=== PATIENT | female | born 1990 | race Caucasian/White ===

== ENCOUNTER → 2020-12-08 | Outpatient (CLI) | payer OTHER ==
[2020-12-08 16:17] LABS: BASO % 0.5 % (0.0-1.0); EOS % 12.8 % (0.0-3.0); HEMATOCRIT 37.6 % (36.0-47.0); HEMOGLOBIN 11.6 g/dl (12.0-15.5); LYMPH # 2.8 10^3/uL (1.5-5.0); MEAN CORPUSCULAR HEMOGLOBIN 27.1 pg (27.0-33.0); MEAN CORPUSCULAR HGB CONC 30.9 g/dl (32.0-36.5); MEAN CORPUSCULAR VOLUME 87.9 fl (80.0-96.0); MONO # 0.5 10^3/uL (0.0-0.8); MONO % 7.2 % (2.0-8.0); NEUTROPHILS # 3.2 10^3/uL (1.5-8.5); NEUTROPHILS % 42.1 % (36.0-66.0); PLATELET COUNT, AUTOMATED 297 10^3/uL (150-450); RED BLOOD COUNT 4.28 10^6/uL (4.00-5.40); WHITE BLOOD COUNT 7.5 10^3/uL (4.0-10.0)
[2020-12-08 16:38] LABS: ALBUMIN 3.7 GM/DL (3.2-5.2); ALT/SGPT 31 U/L (12-78); BILIRUBIN,TOTAL 0.2 MG/DL (0.2-1.0); BLOOD UREA NITROGEN 18 MG/DL (7-18); CALCIUM LEVEL 9.5 MG/DL (8.5-10.1); CARBON DIOXIDE LEVEL 31 MEQ/L (21-32); CHLORIDE LEVEL 104 MEQ/L (98-107); CREATININE FOR GFR 0.74 MG/DL (0.55-1.30); GLOMERULAR FILTRATION RATE > 60.0 (>60); GLUCOSE, FASTING 77 MG/DL (70-100); POTASSIUM SERUM 4.9 MEQ/L (3.5-5.1); SODIUM LEVEL 139 MEQ/L (136-145); TOTAL PROTEIN 7.7 GM/DL (6.4-8.2)
[2020-12-08 16:47] LABS: APPEARANCE, URINE CLEAR (CLEAR); BACTERIA, URINE AUTO NEGATIVE (NEGATIVE); BILIRUBIN, URINE AUTO NEGATIVE (NEGATIVE); BLOOD, URINE BLOOD NEGATIVE (NEGATIVE); COLOR, URINE YELLOW (YELLOW); GLUCOSE, URINE (UA) AUTO NEGATIVE (NEGATIVE); KETONE, URINE AUTO NEGATIVE (NEGATIVE); LEUKOCYTE ESTERASE, URINE AUTO NEGATIVE (NEGATIVE); NITRITE, URINE AUTO NEGATIVE (NEGATIVE); PROTEIN, URINE AUTO NEGATIVE (NEGATIVE); RBC, URINE AUTO 0 /HPF (0-3); SPECIFIC GRAVITY URINE AUTO 1.018 (1.002-1.035); SQUAMOUS EPITHELIAL CELL UR AU 2 /HPF (0-6); UROBILINOGEN, URINE AUTO 0.2 mg/dL (0.0-2.0); WBC, URINE AUTO 0 /HPF (0-3)
[2020-12-08 16:59] LABS: HEPATITIS B SURFACE ANTIGEN NEGATIVE (NEGATIVE)
[2020-12-08 17:26] LABS: HEPATITIS B CORE ANTIBODY IGM NEGATIVE (NEGATIVE)
[2020-12-08 17:28] LABS: HEPATITIS A ANTIBODY IGM NEGATIVE (NEGATIVE)
[2020-12-08 17:30] LABS: HEPATITIS C VIRUS ABY INDEX > 11.0 INDEX (<0.8)
== END ==
LOC: M PLALAB 13:12
PROVIDERS: ATTEND Physician Assistant Medical
DX: Z02.2 Encounter for examination for admission to residential institution (principal)

== ENCOUNTER 2020-12-14 13:59 | Emergency (ER) | payer OTHER ==
[~2020-12-14] VITALS: Ht 154.9 cm; Wt 58.5 kg
[2020-12-14] MEDS ORDERED: GABA-1171 (14:19)
[2020-12-14] MEDS ORDERED: DOXY100C3 (14:19)
[2020-12-14] MEDS ORDERED: CYCL-707 (14:19)
[2020-12-14] MEDS ORDERED: MELA10CA6 PO (14:19)
[2020-12-14] MEDS ORDERED: LIDOCAINE 1% MDV 20ML VIAL SC ONE (18:45)
[2020-12-14] MEDS ORDERED: BACT800T5 PO (19:14)
[2020-12-14] MEDS ORDERED: KETO10TAB PO (19:29)
[2020-12-14] MEDS ORDERED: KETOROLAC TROMETHAMINE 10 MG TAB PO ONE (19:30)
[2020-12-14 19:48] VITALS: BP 114/80
[2020-12-15] MEDS ORDERED: PRAZ2CAP (15:59)
[2020-12-15] MEDS ORDERED: BUPR-69 (15:59)
[2020-12-15] MEDS ORDERED: GABA-1171 PO (16:00)
== END 2020-12-14 19:51 | disposition home or self-care (01) ==
LOC: M ED 13:59
DX: L02.414 Cutaneous abscess of left upper limb (principal); L03.114 Cellulitis of left upper limb; A49.02 Methicillin resistant Staphylococcus aureus infection, unspecified site; K21.9 Gastro-esophageal reflux disease without esophagitis; J45.909 Unspecified asthma, uncomplicated; F41.9 Anxiety disorder, unspecified; Z88.0 Allergy status to penicillin; Z79.899 Other long term (current) drug therapy

== ENCOUNTER 2020-12-15 15:30 | Emergency (ER) | payer OTHER ==
[~2020-12-15] VITALS: Ht 154.9 cm; Wt 58.4 kg
[~2020-12-15 15:30] MED LIST: BACT800T5 PO; CYCL-707; DOXY100C3; GABA-1171; KETO10TAB PO; MELA10CA6 PO
[2020-12-15 15:31] VITALS: BP 126/76
[2020-12-15] MEDS ORDERED: BUPR-69 (15:59)
[2020-12-15] MEDS ORDERED: PRAZ2CAP (15:59)
[2020-12-15] MEDS ORDERED: GABA-1171 PO (16:00)
== END 2020-12-15 19:36 | disposition left against medical advice (07) ==
LOC: M ED 15:30
DX: Z53.21 Procedure and treatment not carried out due to patient leaving prior to being seen by health care provider (principal)

== ENCOUNTER → 2020-12-16 | Outpatient (CLI) | payer OTHER ==
[~2020-12-16] MED LIST changes: +BUPR-69; +GABA-1171 PO; +PRAZ2CAP
[2020-12-16 12:51] LABS: HEPATITIS B SURFACE ANTIBODY NEGATIVE (POSITIVE); HEPATITIS B SURFACE ANTIGEN NEGATIVE (NEGATIVE)
== END ==
LOC: M LAB 09:38
PROVIDERS: ATTEND Physician Assistant Medical
DX: B18.2 Chronic viral hepatitis C (principal)

== ENCOUNTER → 2020-12-23 | Outpatient (CLI) | payer OTHER ==
--- NOTE | 2020-12-23 19:18 | ECGEPIP ---
[facility] Test Date: 2020-12-23 Pat Name: GAVIN KENDALL Department: Room: - Gender: Female Rn Clinical Coordinator: BLAINE : 1990 Requested By: Neto Crump Order Number: [id number] Reading MD: Rogers Ocasio Measurements Intervals [place] Rate: 88 P: 56 MO: 118 QRS: 76 QRSD: 84 T: 81 QT: 356 QTc: 430 Interpretive Statements Normal sinus rhythm Comparison tracing not on file Electronically Signed on 12-23-2020 19:18:47 EDT by Rogers Ocasio
== END ==
LOC: M EKG 11:19
PROVIDERS: ATTEND Family Medicine
DX: F11.20 Opioid dependence, uncomplicated (principal)

== ENCOUNTER 2020-12-28 14:08 | Emergency (ER) | payer OTHER ==
[~2020-12-28] VITALS: Ht 154.9 cm; Wt 59.1 kg
[2020-12-28] MEDS ORDERED: diphenhydrAMINE 50MG/ML VIAL (J1200) IV STA (14:18)
[2020-12-28] MEDS ORDERED: COMBIVENT RESPIMAT 100-20MCG INHALER 4GM INH STA (14:18)
[2020-12-28] MEDS ORDERED: methylPREDNISolone 125MG 2ML VIAL IV ONE (14:20)
[2020-12-28] MEDS ORDERED: KETOROLAC 30 MG/ML 1ML VIAL IV ONE (14:20)
[2020-12-28] MEDS ORDERED: CYCL-707 PO (14:35)
--- NOTE | 2020-12-28 14:48 | REP ---
INDICATION: SOB COMPARISON: None. TECHNIQUE: Portable AP view of the chest FINDINGS: The mediastinum and cardiac silhouette are stable and within normal limits for portable technique. Lung hermosillo demonstrate perihilar and lower lobe airspace disease concerning for COVID-19 pulmonary disease. No effusion. No pneumothorax. Skeletal structures intact. IMPRESSION: Subtle perihilar and lower lobe opacities concerning for COVID-19 pulmonary disease. <Electronically signed by Aubrey Arechiga > 12/28/20 [id number]
--- OUTSIDE RECORDS SUMMARY | 2020-12-28 14:59 | CCD | Continuity of Care Document ---
Author Author Marzena MOSQUEDA Organization Unknown Address [address] [facility] [address] [place] [address] Phone [phone] Care Team Providers Care Medical Records Clerk Name Role Phone GENEVIEVE MOSQUEDA AUTM [phone] Social History Type Date Description Comments Sex Unknown Results Test Acquired Date Facility Test Result H/L Range Note Laboratory test finding 12/16/2020 [facility] [address] [place] [address] [phone] Hepatitis B Surface Antigen NEGATIVE Normal Nega tive Hepatitis B Surface Antibody NEGATIVE Normal Positive CBC With Differential 12/08/2020 [facility] [address] [place] [address] [phone] White Blood Count 7.5 10 Normal 4.0-10.0 Red Blood Count 4.28 10 Normal 4.00-5.40 Hemoglobin 11.6 g/dL Low 12.0-15.5 Hematocrit 37.6 % Normal 36.0-47.0 Mean Corpuscular Volume 87.9 fl Normal 80.0-96.0 Mean Corpuscular Hemoglobin 27.1 pg Normal 27.0-33.0 Mean Corpuscular HGB Conc 30.9 g/dL Low 32.0-36.5 Red Cell Distribution Width 16.3 % High 11.5-14.5 Platelet Count, Automated 297 10 Normal 150-450 Neutrophils % 42.1 % Normal 36.0-66.0 Lymph % 37.0 % Normal 24.0-44.0 [place] % 7.2 % Normal 2.0-8.0 Eos % 12.8 % High 0.0-3.0 Baso % 0.5 % Normal 0.0-1.0 Immature Granulocyte % 0.4 % Normal 0-3.0 Nucleated Red Blood Cell % 0.0 % Normal 0-0 Neutrophils # 3.2 10 Normal 1.5-8.5 Lymph # 2.8 10 Normal 1.5-5.0 [place] # 0.5 10 Normal 0.0-0.8 Eos # 1.0 10 High 0.0-0.5 Baso # 0.0 10 Normal 0.0-0.2 Ua Routine 12/08/[address] [id number] [phone] Appearance, Urine CLEAR Normal Clear Color, Urine YELLOW Normal Yellow PH,Urine 6.0 units Normal 5.0-9.0 Specific [place] Urine Auto 1.018 Normal 1.002-1.035 Protein, Urine Auto NEGATIVE mg/dL Normal Negative Glucose, Urine (Ua) Auto NEGATIVE mg/dL Normal Negative Ketone, Urine Auto NEGATIVE mg/dL Normal Negative Urobilinogen, Urine Auto 0.2 mg/dL Normal 0.0-2.0 Bilirubin, Urine Auto NEGATIVE Normal Negative Nitrite, Urine Auto NEGATIVE Normal Negative Leukocyte Esterase, Urine Auto NEGATIVE Normal Negative Blood, Urine Blood NEGATIVE Normal Negative WBC, Urine Auto 0 /HPF Normal 0-3 RBC, Urine Auto 0 /HPF Normal 0-3 Bacteria, Urine Auto NEGATIVE Normal Negative Squamous Epithelial Cell Ur AU 2 /HPF Normal 0-6 Hyaline Cast, Urine Auto 0 /LPF Normal 0-1 Comprehensive Metabolic Profil 12/08/[address] [id number] [phone] Glucose, Fasting 77 mg/dL Normal 70-100 Blood Urea Nitrogen 18 mg/dL Normal 7-18 Creatinine For GFR 0.74 mg/dL Normal 0.55-1.30 Glomerular Filtration Rate > 60.0 Normal >60 1 Sodium Level 139 mEq/L Normal 136-145 Potassium Serum 4.9 mEq/L Normal 3.5-5.1 Chloride Level 104 mEq/L Normal 98-107 Carbon Dioxide Level 31 mEq/L Normal 21-32 Anion Gap 4 mEq/L Low 8-16 Calcium Level 9.5 mg/dL Normal 8.5-10.1 Ast/Sgot 16 U/L Normal 7-37 Alt/SGPT 31 U/L Normal 12-78 Alkaline Phosphatase 80 U/L Normal 45-117 Bilirubin,Total 0.2 mg/dL Normal 0.2-1.0 Total Protein 7.7 GM/DL Normal 6.4-8.2 Albumin 3.7 GM/DL Normal 3.2-5.2 Albumin/Globulin Ratio 0.9 Low 1.2-2.2 Hepatitis Profile 12/08/2020 [facility] [address] [place] [address] [phone] Hepatitis C Virus Dora Index > 11.0 INDEX High <0 .8 2 Hepatitis B Surface Antigen NEGATIVE Normal Negative Hepatitis B Core Antibody Igm NEGATIVE Normal Negative Hepatitis A Antibody Igm NEGATIVE Normal Negative Laboratory test finding 12/08/2020 [facility] [address] [place] [address] [phone] HCV Rna Sophy Qualitative Negative Normal Negative 3 1 Units are mL/min/1.73 m2 Chronic Kidney Disease Staging per NKF: Stage I & II GFR >=60 Normal to Mildly Decreased Stage III GFR 30-59 Moderately Decreased Stage IV GFR 15-29 Severely Decreased Stage V GFR <15 Very Little GFR Left ESRD GFR <15 on [employer] [place] 2 This screening test for Hepa titis C Virus was above the 1.0 cutoff index value and will be sent to reference lab [facility], [address] [place] [address] [place] [address] for Hep C RNA SOPHY testing to confirm or exclude active Hepatitis C Virus infection. Screening test Positive samples with high index values (>11.0) usually (95%) confirm Positive, but <5 of every 100 samples with this result might be a false positive and Hep C RNA SOPHY testing will aid in patient management. 3 Negative: HCV RNA Not Detect ed Performed at: [address] [id number] [address] [place]: Pat Paredes MD, Phone: [phone] Procedures Date Code Description Status 12/17/2020 24906 Office/Outpatient Established Lo w MDM 20-29 Min Completed 12/13/2020 00968 Office/Outpatient Established Lo w MDM 20-29 Min Completed 12/03/2020 90418 Periodic Preventive Med 18-39 Yr s Completed Encounters Type Date Location Provider Dx Diagnosis Office Visit 12/17/2020 10:00a [facility] SAIRA Wells A49.02 Methicillin resis staph infe ction, unsp site J30.9 Allergic rhinitis, unspecifi ed M54.2 Cervicalgia Office Visit 12/13/2020 10:15a [facility] SAIRA Wells L03.211 Cellulitis of face J45.909 Unspecified asthma, uncompli cated M54.2 Cervicalgia Office Visit 12/03/2020 12:00p [facility] SAIRA Wells Z02.2 Encounter for exam for admis elicia to [facility] Assessments Date Code Description Provider 12/17/2020 A49.02 Methicillin resistan t Staphylococcus aureus infection, unspecified site SAIRA Santana 12/17/2020 J30.9 Allergic rhinitis, unspecified F SAIRA Ward 12/17/2020 M54.2 Cervicalgia SAIRA [place] 12/13/2020 L03.211 Cellulitis of face SAIRA Schaefer 12/13/2020 J45.909 Unspecified asthma, uncomplicate d SAIRA Santana 12/13/2020 M54.2 Cervicalgia [place]IRA [place] 12/03/2020 Z02.2 Encounter for examin ation for admission to [facility] SAIRA Santana Referrals Refer to Reason for Referral Status Appt Date [facility] PATIENT WITH C.O CHRONI C NECK PAIN. PLEASE EVAL AND TREAT. Sent [address] [address] [phone]
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
--- OUTSIDE RECORDS SUMMARY | 2020-12-28 15:00 | CCD | Continuity of Care Document ---
Author Author Marzena MOSQUEDA Organization Unknown Address [address] [facility] [address] [place] [address] Phone [phone] Care Team Providers Care Delivery Specialist Name Role Phone GENEVIEVE MOSQUEDA AUTM Social History Type Date Description Comments Sex Unknown Results Test Acquired Date Facility Test Result H/L Range Note Laboratory test finding 12/16/2020 [facility] [address] [place] [address] [phone] Hepatitis B Surface Antigen NEGATIVE Normal Nega tive Hepatitis B Surface Antibody NEGATIVE Normal Positive CBC With Differential 12/08/2020 [facility] [address] [place] [address] [phone] White Blood Count 7.5 10 Normal 4.0-10.0 [...] 36.0-66.0 Lymph % 37.0 % Normal 24.0-44.0 [place] % 7.2 % Normal 2.0-8.0 Eos % 12.8 % High 0.0-3.0 Baso % 0.5 % Normal 0.0-1.0 Immature Granulocyte % 0.4 % Normal 0-3.0 Nucleated Red Blood Cell % 0.0 % Normal 0-0 Neutrophils # 3.2 10 Normal 1.5-8.5 Lymph # 2.8 10 Normal 1.5-5.0 [place] # 0.5 10 Normal 0.0-0.8 Eos # 1.0 10 High 0.0-0.5 Baso # 0.0 10 Normal 0.0-0.2 Ua Routine 12/08/[address] [id number] [phone] Appearance, Urine CLEAR Normal Clear Color, Urine YELLOW Normal Yellow PH,Urine 6.0 units Normal 5.0-9.0 Specific [place] Urine Auto 1.018 Normal 1.002-1.035 Protein, Urine [...] /LPF Normal 0-1 Comprehensive Metabolic Profil 12/08/[address] [id number] [phone] Glucose, Fasting 77 mg/dL Normal 70-100 Blood [...] Ratio 0.9 Low 1.2-2.2 Hepatitis Profile 12/08/[address] [address] [phone] Hepatitis C Virus Dora Index > 11.0 INDEX High <0 .8 2 Hepatitis B Surface Antigen NEGATIVE Normal Negative Hepatitis B Core Antibody Igm NEGATIVE Normal Negative Hepatitis A Antibody Igm NEGATIVE Normal Negative Laboratory test finding 12/08/2020 [facility] [address] [place] [address] [phone] HCV Rna Sophy Qualitative Negative Normal Negative 3 1 Units are mL/min/1.73 m2 Chronic Kidney Disease Staging per NKF: Stage I & II GFR >=60 Normal to Mildly Decreased Stage III GFR 30-59 Moderately Decreased Stage IV GFR 15-29 Severely Decreased Stage V GFR <15 Very Little GFR Left ESRD GFR <15 on PERSONAL FIN[employer] INSTRUCTOR 2 This screening test for Hepa titis C Virus was above the 1.0 cutoff index value and will be sent to reference lab [facility], [address] [place] [address] [place] [address] for Hep C RNA SOPHY testing to confirm or exclude active Hepatitis C Virus infection. Screening test Positive samples with high index values (>11.0) usually (95%) confirm Positive, but <5 of every 100 samples with this result might be a false positive and Hep C RNA SOPHY testing will aid in patient management. 3 Negative: HCV RNA Not Detect ed Performed at: [address] [id number] [employer]er: Pat Paredes MD, Phone: [phone] Procedures Date Code Description Status 12/13/2020 83376 Office/Outpatient Established Lo w MDM 20-29 Min Completed 12/03/2020 89653 Periodic Preventive Med 18-39 Yr s Completed Encounters Type Date Location Provider Dx Diagnosis Office Visit 12/13/2020 10:15a [facility] SAIRA Wells L03.211 Cellulitis of face J45.909 Unspecified asthma, uncompli cated M54.2 Cervicalgia Office Visit 12/03/2020 12:00p [facility] SAIRA Wells Z02.2 Encounter for exam for admis elicia to [facility] Assessments Date Code Description Provider 12/13/2020 L03.211 Cellulitis of face SAIRA Schaefer 12/13/2020 J45.909 Unspecified asthma, uncomplicate d SAIRA Santana 12/13/2020 M54.2 Cervicalgia [place]IRA [place] 12/03/2020 Z02.2 Encounter for examin ation for admission to [facility] SAIRA Santana Referrals Refer to Reason for Referral Status Appt Date [facility] PATIENT WITH C.O CHRONI C NECK PAIN. PLEASE EVAL AND TREAT. Sent [address] [address] [phone]
--- OUTSIDE RECORDS SUMMARY | 2020-12-28 15:00 | CCD | Continuity of Care Document ---
Author Author Marzena MOSQUEDA Organization Unknown Address [id number] [place] [address] Phone [phone] Care Team Providers Care Consultants Intern Name Role Phone GENEVIEVE MOSQUEDA AUTM [phone] Social History Type Date Description Comments Sex Unknown Procedures Date Code Description Status 12/03/2020 63778 Periodic Preventive Med 18-39 Yr s Completed Encounters Type Date Location Provider Dx Diagnosis Office Visit 12/03/2020 12:00p [facility] SAIRA Wells Z02.2 Encounter for exam for admis elicia to residential institution Assessments Date Code Description Provider 12/03/2020 Z02.2 Encounter for examin ation for admission to residential institution SAIRA Santana
--- OUTSIDE RECORDS SUMMARY | 2020-12-28 15:02 | CCD ---
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 DISOR LEONIE Diagnosis 11/19/2019 01:54:00 PM EDT [facility] T78.40XA Allergy, unspecified, initial encounter ALLERGY, UNSPECIFIED, INITIAL ENCOUNTER Diagnosis 11/19/2019 01:54:00 PM EDT [facility] R21 Rash and other nonspecific skin eruption RASH AND OTHER NONSPECIFIC SKIN ERUPTION Diagnosis 11/19/2019 01:54:00 PM EDT [facility] Surgeries/Procedures Procedure Description Date Indications Data Source(s) OFFICE OUTPATIENT VISIT 15 MINUTES 12/17/2020 12:00:00 AM EDT [facility] (Thierry Connell MD) OFFICE OUTPATIENT VISIT 15 MINUTES 12/13/2020 12:00:00 AM EDT [facility] (Thierry Connell MD) PERIODIC PREVENTIVE MED EST PATIENT 18-39 YRS 12/04/19 12:00:00 AM EDT [facility] (Thierry Connell MD) XR CHEST FRONTAL ONLY 97199 <td>XR CHEST FRONTAL ONLY 12917</td><td>STAT</td><td>08/17/2020 8:12 AM EDT</td><td></td><td> </td> 08/17/2020 08:12:00 AM [facility] RESPIRATORY PATHOGEN PANEL <td>RESPIRATORY PATHOGEN PANEL</td><td>Routine</td><td>08/17/2020 8:02 AM EDT</td><td></td><td> </td> 08/17/2020 08:02:00 AM [facility] COVID-19 PCR <td>COVID-19 PCR</td><td>Rou thad</td><td>08/17/2020 8:02 AM EDT</td><td></td><td> </td> 08/17/2020 08:02:00 AM [facility] EKG 12-LEAD - CMAXX REPORT <td>EKG 12-LEAD - CMAXX REPORT</td><td></td><td>08/17/2020 8:02 AM EDT</td><td></td><td></td> 08/17/2020 08:02:00 AM [facility] EKG 12-LEAD - CMAXX REPORT <td>EKG 12-LEAD - CMAXX REPORT</td><td></td><td>08/17/2020 8:02 AM EDT</td><td></td><td></td> 08/17/2020 08:02:00 AM [facility] BLOOD COUNT COMPLETE AUTO&AUTO DIFRNTL WBC COUNT <td>C BC AND DIFFERENTIAL</td><td>Routine</td><td>08/17/2020 8:02 AM EDT</td><td></td><td> </td> 08/17/2020 08:02:00 AM [facility] LIPASE <td>LIPASE LEVEL</td><td>STA T</td><td>08/17/2020 8:02 AM EDT</td><td></td><td> </td> 08/17/2020 08:02:00 AM [facility] HEPATIC FUNCTION PANEL <td>HEPATIC FUNCTION PANEL A</td><td>STAT</td><td>08/17/2020 8:02 AM EDT</td><td></td><td> </td> 08/17/2020 08:02:00 AM [facility] BASIC METABOLIC PANEL CALCIUM TOTAL <td>BASIC METABOLI C PANEL</td><td>STAT</td><td>08/17/2020 8:02 AM EDT</td><td></td><td> </td> 08/17/2020 08:02:00 AM [facility] EKG 12-LEAD <td>EKG 12-LEAD</td><td>STAT </td><td>08/17/2020 8:02 AM EDT</td><td></td><td> </td> 08/17/2020 08:02:00 AM [facility] POCT ISTAT [facility]CG <td>POCT ISTAT [facility]CG</td><td> Routine</td><td>08/17/2020 7:59 AM EDT</td><td></td><td> </td> 08/17/2020 07:59:00 AM [facility] Results ID Date Data Source [id number] 12/16/2020 10:53:00 AM EDT [facility] (Thierry Connell MD) Name Value Range Interpretation Code Description Data Daniela rce(s) Supporting Document(s) Hepatitis B virus surface Ag [Presence] in Serum or Pl asma by Immunoassay Laboratory test result Normal (applies to non-numeric results) [facility] (Thierry Connell MD) Hepatitis B virus surface Ab [Presence] in Serum by Im munoassay Laboratory test result Normal (applies to non-numeric results) [facility] (Thierry Connell MD) ID Date Data Source [id number] 12/08/2020 01:24:00 PM EDT [facility] (Thierry Connell MD) Name Value Range Interpretation Code Description Data Daniela rce(s) Supporting Document(s) Hepatitis C virus RNA [Units/volume] (vi ral load) in Serum or Plasma by Probe with amplification Laboratory test result Normal (applies t o non-numeric results) [facility] (Thierry Connell MD) Negative: HCV RNA Not Detected Performed at: [address] [id number] Equipment Oiler: Pat Paredes MD, Phone: [phone] ID Date Data Source [id number] 12/08/2020 01:24:00 PM EDT [facility] (Thierry Connell MD) Name Value Range Interpretation Code Description Data Daniela rce(s) Supporting Document(s) Laboratory test finding (navigational concept) Laboratory test r esult Above high normal [facility] (Thierry Connell MD) <content>This screening test for Hepatit is C Virus was above the 1.0</content>
<content>cutoff index value and will be sent to reference lab</content>
<content>Laboratory [facility], [address] [place],</content>
<content>[place] [address] for Hep C RNA JASIEL testing to confirm or exclude</content>
<content>active Hepatitis C Virus infection. Screening test Positive</content>
<content>samples with high index values (>11.0) usually (95%) confirm</content>
<content>Positive, but <5 of every 100 samples with this result might</content>
<content>be a false positive and Hep C RNA JASIEL testing will aid in</content>
<content>patient management.</content>
<content></content> Laboratory test finding (navigational concept) Laboratory test r esult Normal (applies to non-numeric results) [facility] (Thierry Connell MD) Laboratory test finding (navigational concept) Laboratory test r esult Normal (applies to non-numeric results) [facility] (Thierry Connell MD) Laboratory test finding (navigational concept) Laboratory test r esult Normal (applies to non-numeric results) [facility] (Thierry Connell MD) ID Date Data Source [id number] 12/08/2020 01:24:00 PM EDT [facility] (Thierry Connell MD) Name Value Range Interpretation Code Description Data Daniela rce(s) Supporting Document(s) Laboratory test finding (navigational concept) 77 mg/dL 7 0-100 Normal (applies to non-numeric results) [facility] (Thierry Connell MD) Laboratory test finding (navigational concept) 0.74 mg/dL 0 .55-1.30 Normal (applies to non-numeric results) [facility] (Thierry Connell MD) Laboratory test finding (navigational concept) 18 mg/dL 7 -18 Normal (applies to non-numeric results) [facility] (Thierry Connell MD) Laboratory test finding (navigational concept) Laboratory test r esult Normal (applies to non-numeric results) [facility] (Thierry Connell MD) <content>Units are mL/min/1.73 m2</content>
<content></content>
<content>Chronic Kidney Disease Staging per NKF:</content>
<content></content>
<content>Stage I & II GFR >=60 Normal to Mildly Decreased</content>
<content>Stage III GFR 30- 59 Moderately Decreased</content>
<content>Stage IV GFR 15-29 Severely Decreased</content>
<content>Stage V GFR <15 Very Little GFR Left</content>
<content>ESRD GFR <15 on FEEDER OPERATOR [employer]IC</content>
<content></content> Laboratory test finding (navigational concept) 4.9 meq/L 3 .5-5.1 Normal (applies to non-numeric results) [facility] (Thierry Connell MD) Laboratory test finding (navigational concept) 139 meq/L 1 36-145 Normal (applies to non-numeric results) [facility] (Thierry Connell MD) Laboratory test finding (navigational concept) 104 meq/L 9 8-107 Normal (applies to non-numeric results) [facility] (Thierry Connell MD) Laboratory test finding (navigational concept) 31 meq/L 2 1-32 Normal (applies to non-numeric results) [facility] (Thierry Connell MD) Laboratory test finding (navigational concept) 4 meq/L 8-16 Below low normal [facility] (Thierry Connell MD) Laboratory test finding (navigational concept) 9.5 mg/dL 8 .5-10.1 Normal (applies to non-numeric results) [facility] (Thierry Connell MD) Laboratory test finding (navigational concept) 31 U/L 1 2-78 Normal (applies to non-numeric results) [facility] (Thierry Connell MD) Laboratory test finding (navigational concept) 16 U/L 7 -37 Normal (applies to non-numeric results) [facility] (Thierry Connell MD) Laboratory test finding (navigational concept) 0.2 mg/dL 0 .2-1.0 Normal (applies to non-numeric results) [facility] (Thierry Connell MD) Laboratory test finding (navigational concept) 7.7 GM/DL 6 .4-8.2 Normal (applies to non-numeric results) [facility] (Thierry Connell MD) Laboratory test finding (navigational concept) 80 U/L 4 5-117 Normal (applies to non-numeric results) [facility] (Thierry Connell MD) Laboratory test finding (navigational concept) 0.9 1.2-2.2 Below low normal [facility] (Thierry Connell MD) Laboratory test finding (navigational concept) 3.7 GM/DL 3 .2-5.2 Normal (applies to non-numeric results) [facility] (Thierry Connell MD) ID Date Data Source [id number] 12/08/2020 01:24:00 PM EDT [facility] (Thierry Connell MD) Name Value Range Interpretation Code Description Data Daniela rce(s) Supporting Document(s) Laboratory test finding (navigational concept) 6.0 units 5 .0-9.0 Normal (applies to non-numeric results) [facility] (Thierry Connell MD) Laboratory test finding (navigational concept) Laboratory test r esult Normal (applies to non-numeric results) [facility] (Thierry Connell MD) Laboratory test finding (navigational concept) Laboratory test r esult Normal (applies to non-numeric results) [facility] (Thierry Connell MD) Laboratory test finding (navigational concept) 1.018 1 .002-1.035 Normal (applies to non-numeric results) [facility] (Thierry Connell MD) Laboratory test finding (navigational concept) Laboratory test r esult Normal (applies to non-numeric results) [facility] (Thierry Connell MD) Laboratory test finding (navigational concept) Laboratory test r esult Normal (applies to non-numeric results) [facility] (Thierry Connell MD) Laboratory test finding (navigational concept) Laboratory test r esult Normal (applies to non-numeric results) [facility] (Thierry Connell MD) Laboratory test finding (navigational concept) 0.2 mg/dL 0 .0-2.0 Normal (applies to non-numeric results) [facility] (Thierry Connell MD) Laboratory test finding (navigational concept) Laboratory test r esult Normal (applies to non-numeric results) [facility] (Thierry Connell MD) Laboratory test finding (navigational concept) Laboratory test r esult Normal (applies to non-numeric results) [facility] (Thierry Connell MD) Laboratory test finding (navigational concept) Laboratory test r esult Normal (applies to non-numeric results) [facility] (Thierry Connell MD) Laboratory test finding (navigational concept) Laboratory test r esult Normal (applies to non-numeric results) [facility] (Thierry Connell MD) Laboratory test finding (navigational concept) 0 /HPF 0 -3 Normal (applies to non-numeric results) [facility] (Thierry Connell MD) Laboratory test finding (navigational concept) 0 /HPF 0 -3 Normal (applies to non-numeric results) [facility] (Thierry Connell MD) Laboratory test finding (navigational concept) Laboratory test r esult Normal (applies to non-numeric results) [facility] (Thierry Connell MD) Laboratory test finding (navigational concept) 2 /HPF 0 -6 Normal (applies to non-numeric results) [facility] (Thierry Connell MD) Laboratory test finding (navigational concept) 0 /LPF 0 -1 Normal (applies to non-numeric results) [facility] (Thierry Connell MD) ID Date Data Source [id number] 12/08/2020 01:24:00 PM EDT [facility] (Thierry Connell MD) Name Value Range Interpretation Code Description Data Daniela rce(s) Supporting Document(s) Laboratory test finding (navigational concept) 7.5 10 4 .0-10.0 Normal (applies to non-numeric results) [facility] (Thierry Connell MD) Laboratory test finding (navigational concept) 4.28 10 4 .00-5.40 Normal (applies to non-numeric results) [facility] (Thierry Connell MD) Laboratory test finding (navigational concept) 11.6 g/dL 1 2.0-15.5 Below low normal [facility] (Thierry Connell MD) Laboratory test finding (navigational concept) 37.6 % 3 6.0-47.0 Normal (applies to non-numeric results) [facility] (Thierry Connell MD) Laboratory test finding (navigational concept) 87.9 fl 8 0.0-96.0 Normal (applies to non-numeric results) [facility] (Thierry Connell MD) Laboratory test finding (navigational concept) 16.3 % 1 1.5-14.5 Above high normal [facility] (Thierry Connell MD) Laboratory test finding (navigational concept) 30.9 g/dL 3 2.0-36.5 Below low normal [facility] (Thierry Connell MD) Laboratory test finding (navigational concept) 27.1 pg 2 7.0-33.0 Normal (applies to non-numeric results) [facility] (Thierry oCnnell MD) Laboratory test finding (navigational concept) 37.0 % 2 4.0-44.0 Normal (applies to non-numeric results) [facility] (Thierry Connell MD) Laboratory test finding (navigational concept) 297 10 1 50-450 Normal (applies to non-numeric results) [facility] (Thierry Connell MD) Laboratory test finding (navigational concept) 42.1 % 3 6.0-66.0 Normal (applies to non-numeric results) [facility] (Thierry Connell MD) Laboratory test finding (navigational concept) 7.2 % 2 .0-8.0 Normal (applies to non-numeric results) [facility] (Thierry Connell MD) Laboratory test finding (navigational concept) 12.8 % 0.0-3.0 Above high normal [facility] (Thierry Connell MD) Laboratory test finding (navigational concept) 0.5 % 0 .0-1.0 Normal (applies to non-numeric results) [facility] (Thierry Connell MD) Laboratory test finding (navigational concept) 3.2 10 1 .5-8.5 Normal (applies to non-numeric results) [facility] (Thierry Connell MD) Laboratory test finding (navigational concept) 0.4 % 0 -3.0 Normal (applies to non-numeric results) [facility] (Thierry Connell MD) Laboratory test finding (navigational concept) 0.0 % 0 -0 Normal (applies to non- numeric results) [facility] (Thierry Connell MD) Laboratory test finding (navigational concept) 0.5 10 0 .0-0.8 Normal (applies to non-numeric results) [facility] (Thierry Connell MD) Laboratory test finding (navigational concept) 1.0 10 0.0-0.5 Above high normal [facility] (Thierry Connell MD) Laboratory test finding (navigational concept) 2.8 10 1 .5-5.0 Normal (applies to non-numeric results) [facility] (Thierry Connell MD) Laboratory test finding (navigational concept) 0.0 10 0 .0-0.2 Normal (applies to non-numeric results) [facility] (Thierry Connell MD) ID Date Data Source [id number] 11/10/2020 02:08:00 PM EDT [facility] PAGE: [address] [place] [address] GAVIN Samuel ESOINCSL4869 [place] [address] [facility] NUM: [id number] : 1990 Med Reconciliation Patient: GAVIN KENDALL Medication Reconciliation Report HealthVisitID: [id number] [place] [address] [phone], [facility]Registrabay[facility] Date/Time: 11/10/2020 14:08 Weight: 47.1 kgHeight/Length: 62 in.BMI: 19.0 ALLERGIES:Banana, Latex, [place], Penicillins The patient's Home Medications are listed below: Unable to obtain.The source(s) of the original Home Medication information: Not obtained.The following Me dications were given to the patient in the Emergency Department:Haloperidol [IM] IM 5 mg, administered: 15:24 1Lorazepam [IM] IM 2 mg, administered: 15:24 1DiphenHydramine [IM] IM 50 mg, administered: 15:24 11/10/2020The following Medications were prescribed to the patient: None. Name Value Range Interpretation Code Description Data Daniela rce(s) Supporting Document(s) ID Date Data Source [id number] 11/10/2020 02:08:00 PM EDT [facility] PAGE: [address] [place] [address] GAVIN KENDALL[address] [facility] [address] NUM: [id number] : 1990 Physician Discharge Report Clinical [facility] - [facility] [address] [place] [address] Patient: GAVIN KENDALL : Jorge : 1990 Age: 30yArrival: 11/10/2020 14:08 Departure: 11/12/2020 08:35 Disposition: Discharge Weight:47.1 kg (E). Height/Length:62 inches (E). BMI:19 Arrived- By ambulance. Historian- patient and EMS personnel. History limited by altered mental status. HISTORY OF PRESENT ILLNESSChief Complaint: BIZARRE BEHAVIOR. Symptoms started today. Duration of substance abuse- unknown. Substances abused: Amphetamines and heroin. The patient has been agitated. patient with uncontrollable movements of entire body writhing around. The symptoms are described as moderate. No injuries noted. Similar sympt oms previously. None. REVIEW OF SYSTEMSUnobtainable due to patient's altered mental status and poor comprehension. PAST HISTORYSee nurses notes. Allergies:Banana.(rash)Latex.(rash)[place].(rash)Penicillins. SOCIAL HISTORY PAGE: [address] [place] [address] GAVIN HERNA[address]ZER[address] [facility] [address] REC NUM: [id number] : 1990 Drug use. ADDITIONAL NOTESThe nursing notes have been reviewed. PHYSICAL EXAMAppearance: Alert. No acute distress. Head: Head atraumatic. Eyes: Pupils equal, round and reactive to light. ENT: Normal ENT inspection. Airway intact. Neck: Normal inspection. CVS: Normal heart rate and rhythm. Heart sounds normal. Pulses normal. Respiratory: No respiratory distress. Painless inspiration. Breath sounds normal. Abdomen: Soft and nontender. No organomegaly. Back: Normal inspection. Skin: Skin warm and dry. Normal skin color. No rash. Normal skin turgor. Extremities: Extremities exhibit normal ROM. No lower extremity edema. Neuro: Alert. Altered mental status. Cranial nerves normal (as tested). LABS, X-RAYS, AND EKGLaboratory Tests: EGFR (CALCULATED): (MASOUD: 11/10/2020 16:45)( MsgRcvd 11/10/2020 17:13) Final results Test Result Flag Units (Reference)ESTIMATED GFR (CALCULATED) EGFR 105 >59 mL/min/1.73m2 EGFR, -BERMUDIAN 121 >59 mL/min/1.74p9Mfsh: Persistent reduction for 3 months or more in an eGFR <60 mL/min/1.73m2 defines CKD. Patients with eGFR values >=60 mL/min/1.73m2 may also have CKD if evidence of persistent proteinuria is present. Additional information may be found at [email or web address]. ELECTROCARDIOGRAM-EMERGENCY DEPT: (MASOUD: 11/10/2020 15:29)( MsgRcvd 11/10/2020 17:26) Final results Test Result Flag Units (Reference)-- Vent Rate: 82 bpm PAGE: [address] [place] [address] REC NUM: [id number] : 1990 RR Interval: 732 msecPR Interval: 112 msecQRS Duration: 90 msecQT Interval: 402 msecQTC Interval: 470 msecP-R-T [place]: 84 - 81 - 68 degrees""Sinus rhythm...normal P axis, V-rate 50- 99Borderline short NH interval...NH int <120mSBiatrial enlargement...P>80mS,<-0.15mV V1 &>0.30mV 2 ldsRSR' in V1 or V2, right VCD or RVH...QRS area positive & R' V1/V2""Study Date: ""Electronically Signed By: TRISTON GEE ANDREWDate: 11/10/2020 17:25 CBC w Diff: (MASOUD: 11/10/2020 16:45)( WigRcvd 11/10/2020 16:49) Final results Test Result Flag Units (Reference)WBC 16.2 H x10E3/uL (4.3-10.9) RBC 4.50 x10E6/uL (3.80-5.30) HEMOGLOBIN 12.0 g/dl (11.8-15.8) HEMATOCRIT 38.5 % (35.0-47.0) MCV 85.6 fl (82.0-98.0) MCH 26.7 L pg (27.5-33.5) MCHC 31.2 L g/dl (32.0-36.0) RDW 15.5 H % (11.5-14.5) PLATELET COUNT 460 H x10E3/uL (130-400) MPV 9.5 fl (8.6-12.6) SEGMENTED NEUTROPHILS 74.3 H % (44.0-74.0) LYMPHOCYTES 13.4 L % (15.0-45.0) MONOCYTES 7.9 % (2.0-13.0) PAGE: [address] [place] [address] GAVIN Samuel [address] NUM: [id number] : 1990 EOSINOPHILS 4.0 % (0.0-6.0) BASOPHILS 0.4 % (0.0-2.0) NEUTROPHIL ABSOLUTE 12.0 H x10E3/uL (1.4-7.0) LYMPHOCYTES ABSOLUTE 2.2 x10E3/uL (1.0-3.4) MONOCYTE ABSOLUTE 1.3 H x10E3/uL (0.2-1.0) EOSINOPHIL ABSOLUTE 0.6 H x10E3/uL (0.0-0.5) BASOPHIL ABSOLUTE 0.1 x10E3/uL (0.0-0.2) Comprehensive Panel: (MASOUD: 11/10/2020 16:45)( MsgRcvd 11/10/2020 17:13) Final results Test Result Flag Units (Reference)GLUCOSE 93 mg/dl (70-100) BUN 10 mg/dl (4-18) CREATININE, SERUM 0.76 mg/dl (0.50-1.10) SODIUM 139 mmol/l (136-146) POTASSIUM 4.7 mmol/l (3.5-5.3) CHLORIDE 98 mmol/l (96-109) CARBON DIOXIDE 32 mmol/l (20-32) ALBUMIN 3.9 g/dl (3.5-5.0) PROTEIN, TOTAL 8.1 g/dl (6.4-8.2) CALCIUM 9.8 mg/dl (8.4-10.4) ALKALINE PHOSPHATASE 133 H U/l (10-118) SGOT (AST) 50 H U/l (3-40) SGPT (ALT) 22 U/l (7-50) BILIRUBIN, TOTAL 0.34 mg/dl (0.30-1.20) PAGE: [address] [place] [address] [facility] REC NUM: [id number] : 1990 BUN/CREATININE RATIO 13.2 (6.0-20.0) GLOBULIN 4.2 H g/dl (2.3-3.5) ANION GAP 9.0 mmol/l (7.0-16.0) OSMOLALITY (CALCULATED) 276 L mos/kg (280-300) A/G RATIO 0.9 L (1.0-2.0) Urine Drug Screen: (MASOUD: 11/10/2020 17:05)( MsgRcvd 11/10/2020 17:30) Final results Test Result Flag Units (Reference)SCREEN INTERPRETATION SEE NOTE Methodology for the test(s) below is for screening purposes only and the reference range for these tests is Negative. Positive results should be considered presumptive. . . AMPHETAMINES POSITIVE AB Screen Cutoff 1000 ng/ml. . BARBITURATES POSITIVE AB Screen Cutoff 200 ng/ml. . BENZODIAZEPINES NEGATIVE Screen Cutoff 300 ng/ml. . COCAINE NEGATIVE Screen Cutoff 300 ng/ml. . OPIATES POSITIVE AB Screen Cutoff 300 ng/ml. . PAGE: [address] [place] [address] , [place] [address] [facility] REC NUM: [id number] : 1990 PHENCYCLIDINE (PCP) NEGATIVE Screen Cutoff 25 ng/ml. . CANNABIS (THC) NEGATIVE Screen Cutoff 50 ng/ml. . TRICYCLIC ANTIDEPRESSNT NEGATIVE (NEGATIVE) Screen Cutoff 500 ng/ml. . Alcohol: (MASOUD: 11/10/2020 16:45)( MsgRcvd 11/10/2020 17:13) Final results Test Result Flag Units (Reference)ETHANOL (BLOOD) 0.000 % (0.000-0.010) This test result should only be used for MEDICAL or THERAPEUTIC purposes. Acetaminophen Level: (MASOUD: 11/10/2020 16:45)( [facility]13[facility] Final results Test Result Flag Units (Reference)ACETAMINOPHEN <15.0 ug/ml (15.0-25.0) Salicylate Level: (MASOUD: 11/10/2020 16:45)( MsgRcvd 11/10/2020 17:13) Final results Test Result Flag Units (Reference)SALICYLATE <0.5 mg/dL (0.0-29.9) RPR: (MASOUD: 11/10/2020 16:45)( [facility] 11/10/2020 17:21) Final results Test Result Flag Units (Reference)RPR NON-REACTIVE PAGE: [address] [place] [address] GAVIN Samuel [address] NUM: [id number] : 1990 (NON-REACTIVE) TSH: (MASOUD: 11/10/2020 16:45)( [facility] 11/10/2020 17:21) Final results Test Result Flag Units (Reference)TSH (THYROTROPIN) 2.000 uIU/ml (0.490-4.670) Urinalysis, Culture if indicated: (MASOUD: 11/10/2020 17:05)( [facility] 11/10/2020 17:24) Final results Test Result Flag Units (Reference)URINE COLOR YELLOW (YELLOW) URINE APPEARANCE CLEAR (CLEAR) URINE SPECIFIC GRAVITY 1.024 (1.003-1.035) URINE LEUKOCYTES NEGATIVE (NEGATIVE) URINE NITRITE NEGATIVE (NEGATIVE) URINE PH 6.0 (5.0-8.0) URINE PROTEIN 1+ AB (NEGATIVE) URINE GLUCOSE NEGATIVE (NEGATIVE) URINE KETONES NEGATIVE (NEGATIVE) URINE UROBILINOGEN NORMAL mg/dl (NORMAL OR <1)URINE BILIRUBIN NEGATIVE (NEGATIVE) URINE OCCULT BLOOD NEGATIVE (NEGATIVE) URINE MICROSCOPIC PERFORMED Microscopic performed. Elements observed are listed. If no elements are listed,the Microscopic is negative. WBC 0-5 hpf (0-5) RBC 0-3 hpf (0-3) HYALINE CAST 6-10 AB lpf PAGE: [address] [place] [address] [facility] REC NUM: [id number] : 1990 (NEGATIVE) EPITHELIAL CELLS 0-5 hpf (0-5) MUCOUS THREADS 1+ AB hpf (NEGATIVE) URINE C+S IF INDICATED NOT INDICATED . PROGRESS AND PROCEDURESCourse of Care: 19:46 11/10/20. Patient sleeping after receiving Benadryl Haldol and Ativan IM To be signed out at shift change. (Electronically signed by ANGI GOLDSTEIN MD 11/10/2020 19:47) Weight:47.1 kg (E). Height/Length:62 inches (E). BMI:19 LABS, X-RAYS, AND EKGLaboratory Tests: EGFR (CALCULATED): (MASOUD: 11/10/2020 16:45)( MsgRcvd 11/10/2020 17:13) Final results Test Result Flag Units (Reference)ESTIMATED GFR (CALCULATED) EGFR 105 >59 mL/min/1.73m2 EGFR, -BERMUDIAN 121 PAGE: [address] [place] [address] [facility] REC NUM: [id number] : 1990 >59 mL/min/1.75s6Baqo: Persistent reduction for 3 months or more in an eGFR <60 mL/min/1.73m2 defines CKD. Patients with eGFR values >=60 mL/min/1.73m2 may also have CKD if evidence of persistent pro teinuria is present. Additional information may be found at [email or web address]. ELECTROCARDIOGRAM-EMERGENCY DEPT: (MASOUD: 11/10/2020 15:29)( MsgRcvd 11/10/2020 17:26) Final results Test Result Flag Units (Reference)-- Vent Rate: 82 bpmRR Interval: 732 msecPR Interval: 112 msecQRS Duration: 90 msecQT Interval: 402 msecQTC Interval: 470 msecP-R-T [place]: 84 - 81 - 68 degrees""Sinus rhythm...normal P axis, V-rate 50- 99Borderline short NH interval...NH int <120mSBiatrial enlargement...P>80mS,<-0.15mV V1 &>0.30mV 2 ldsRSR' in V1 or V2, right VCD or RVH...QRS area positive & R' V1/V2""Study Date: ""Electronically Signed By: TRISTON GEE, ANDREWDate: 11/10/2020 17:25 CBC w Diff: (MASOUD: 11/10/2020 16:45)( MsgRcvd 11/10/2020 16:49) Final results Test Result Flag Units (Reference)WBC 16.2 H x10E3/uL (4.3- 10.9) RBC 4.50 x10E6/uL (3.80-5.30) HEMOGLOBIN 12.0 g/dl (11.8-15.8) HEMATOCRIT 38.5 % (35.0-47.0) MCV 85.6 fl (82.0-98.0) MCH 26.7 L pg (27.5-33.5) MCHC 31.2 L g/dl PAGE: [address] [place] [address] GAVIN Samuel [address] REC NUM: [id number] : 1990 (32.0-36.0) RDW 15.5 H % (11.5-14.5) PLATELET COUNT 460 H x10E3/uL (130-400) MPV 9.5 fl (8.6-12.6) SEGMENTED NEUTROPHILS 74.3 H % (44.0-74.0) LYMPHOCYTES 13.4 L % (15.0-45.0) MONOCYTES 7.9 % (2.0-13.0) EOSINOPHILS 4.0 % (0.0-6.0) BASOPHILS 0.4 % (0.0-2.0) NEUTROPHIL ABSOLUTE 12.0 H x10E3/uL (1.4-7.0) LYMPHOCYTES ABSOLUTE 2.2 x10E3/uL (1.0-3.4) MONOCYTE ABSOLUTE 1.3 H x10E3/uL (0.2-1.0) EOSINOPHIL ABSOLUTE 0.6 H x10E3/uL (0.0-0.5) BASOPHIL ABSOLUTE 0.1 x10E3/uL (0.0-0.2) Comprehensive Panel: (MASOUD: 11/10/2020 16:45)( MsgRcvd 11/10/2020 17:13) Final results Test Result Flag Units (Reference)GLUCOSE 93 mg/dl (70-100) BUN 10 mg/dl (4-18) CREATININE, SERUM 0.76 mg/dl (0.50-1.10) SODIUM 139 mmol/l (136-146) POTASSIUM 4.7 mmol/l (3.5-5.3) CHLORIDE 98 mmol/l (96-109) CARBON DIOXIDE 32 mmol/l (20-32) ALBUMIN 3.9 g/dl PAGE: [address] [place] [address] GAVIN Samuel [address] [place] [id number] [facility] REC NUM: [id number] : 1990 (3.5-5.0) PROTEIN, TOTAL 8.1 g/dl (6.4-8.2) CALCIUM 9.8 mg/dl (8.4-10.4) ALKALINE PHOSPHATASE 133 H U/l (10-118) SGOT (AST) 50 H U/l (3-40) SGPT (ALT) 22 U/l (7-50) BILIRUBIN, TOTAL 0.34 mg/dl (0.30-1.20) BUN/CREATININE RATIO 13.2 (6.0-20.0) GLOBULIN 4.2 H g/dl (2.3-3.5) ANION GAP 9.0 mmol/l (7.0-16.0) OSMOLALITY (CALCULATED) 276 L mos/kg (280-300) A/G RATIO 0.9 L (1.0-2.0) Urine Drug Screen: (MASOUD: 11/10/2020 17:05)( [facility] 11/10/2020 17:30) Final results Test Result Flag Units (Reference)SCREEN INTERPRETATION SEE NOTE Methodology for the test(s) below is for screening purposes only and the reference range for these tests is Negative. Positive results should be considered presumptive. . . AMPHETAMINES POSITIVE AB Screen Cutoff 1000 ng/ml. . BARBITURATES POSITIVE AB Screen Cutoff 200 ng/ml. . BENZODIAZEPINES NEGATIVE PAGE: [address] [place] [address] [facility] REC NUM: [id number] : 1990 Screen Cutoff 300 ng/ml. . COCAINE NEGATIVE Screen Cutoff 300 ng/ml. . OPIATES POSITIVE AB Screen Cutoff 300 ng/ml. . PHENCYCLIDINE (PCP) NEGATIVE Screen Cutoff 25 ng/ml. . CANNABIS (THC) NEGATIVE Screen Cutoff 50 ng/ml. . TRICYCLIC ANTIDEPRESSNT NEGATIVE (NEGATIVE) Screen Cutoff 500 ng/ml. . Alcohol: (MASOUD: 11/10/2020 16:45)( [facility] 11/10/2020 17:13) Final results Test Result Flag Units (Reference)ETHANOL (BLOOD) 0.000 % (0.000-0.010) This test result should only be used for MEDICAL or THERAPEUTIC purposes. Acetaminophen Level: (MASOUD: 11/10/2020 16:45)( [facility] 11/10/2020 17:13) Final results Test Result Flag Units (Reference)ACETAMINOPHEN <15.0 ug/ml (15.0-25.0) PAGE: [address] [place] [address] MED REC NUM: [id number] : 1990 Salicylate Level: (MASOUD: 11/10/2020 16 :45)( [facility] 11/10/2020 17:13) Final results Test Result Flag Units (Reference)SALICYLATE <0.5 mg/dL (0.0-29.9) RPR: (MASOUD: 11/10/2020 16:45)( [facility] 11/10/[facility] 17:21) Final results Test Result Flag Units (Ref erence)RPR NON-REACTIVE (NON-REACTIVE) TSH: (MASOUD: 11/10/2020 16:45)( [facility] 11/10/2020 17:21) Final results Test Result Flag Units (Reference)TSH (THYROTROPIN) 2.000 uIU/ml (0.490-4.670) Urinalysis, Culture if indicated: (MAOSUD: 11/10/2020 17:05)( [facility] 11/10/2020 17:24) Final results Test Result Flag Units (Reference)URINE COLOR YELLOW (YELLOW) URINE APPEARANCE CLEAR (CLEAR) URINE SPECIFIC GRAVITY 1.024 (1.003-1.035) URINE LEUKOCYTES NEGATIVE (NEGATIVE) URINE NITRITE NEGATIVE (NEGATIVE) URINE PH 6.0 (5.0-8.0) URINE PROTEIN 1+ AB (NEGATIVE) URINE GLUCOSE NEGATIVE (NEGATIVE) URINE KETONES NEGATIVE (NEGATIVE) URINE UROBILINOGEN NORMAL mg/dl (NORMAL OR <1)URINE BILIRUBIN NEGATIVE PAGE: 14[facility] GAVIN Samuel [address] REC NUM: [id number] : 1990 (NEGATIVE) URINE OCCULT BLOOD NEGATIVE (NEGATIVE) URINE MICROSCOPIC PERFORMED Microscopic performed. Elements observed are listed. If no elements are listed,the Microscopic is negative. WBC 0-5 hpf (0-5) RBC 0-3 hpf (0-3) HYALINE CAST 6-10 AB lpf (NEGATIVE) EPITHELIAL CELLS 0-5 hpf (0-5) MUCOUS THREADS 1+ AB hpf (NEGATIVE) URINE C+S IF INDICATED NOT INDICATED . PROGRESS AND PROCEDURESCourse of Care: 20:00 Nov 10 2020. Case discussed and results reviewed, care assumed from Dr. Goldstein pending social work evaluation please refer to the previous provider note for full HPI/ROS/PE for details. 08:Nov 11 2020. Patient reassesed and is stable. Workup completed to this point were reviewed and discussed with the patient and remaining plan of care was verbalized; patient is amenable with plan. Case discussed and results reviewed, care turned over to Dr. Sanz pending social media assistant evaluation. Disposition: Condition: stable. CLINICAL IMPRESSIONOccasional substance abuse- methamphetamines with intoxication and delirium. (Electronically signed by KALINA WAY MD 11/14/2020 06:04) PAGE: [address] [place] [address] GAVIN Samuel [address] REC NUM: [id number] : 1990 Weight:47.1 kg (E). Height/Length:62 inches (E). BMI:19 LABS, X-RAYS, AND EKGLaboratory Tests: EGFR (CALCULATED): (MASOUD: 11/10/2020 16:45)( [facility] 11/10/2020 17:13) Final results Test Result Flag Units (Reference)ESTIMATED GFR (CALCULATED) EGFR 105 >59 mL/min/1.73m2 EGFR, -BERMUDIAN 121 >59 mL/min/1.92t7Xxmf: Persistent reduction for 3 months or more in an eGFR <60 mL/min/1.73m2 defines CKD. Patients with eGFR values >=60 mL/min/1.73m2 may also have CKD if evidence of persistent proteinuria is present. Additional information may be found at [email or web address]/professionals/kdoqi. ELECTROCARDIOGRAM-EMERGENCY DEPT: (MASOUD: 11/10/2020 15:29)( MsgRcvd 11/11/2020 06:40) Correction to results Test Result Flag Units (Reference)-- A DDENDUM""Vent Rate: 82 bpmRR Interval: 732 msecPR Interval: 112 msecQRS Duration: 90 msecQT Interval: 402 msecQTC Interval: 470 msecP-R-T [place]: 84 - 81 - 68 degrees""Sinus rhythm...normal P axis, V-rate 50- 99Borderline short NH interval...NH int <120mSRSR' in V1 or V2, right VCD or RVH...QRS area positive & R' V1/V2 PAGE: [address] [place] [address] GAVIN Samuel [id number] [place] [address] [facility] REC NUM: [id number] : 1990 Incomplete right bundle branch blockBorderline QTC prolongation""Study Date: ""Electronically Signed By: NIGEL GEE, TWIN LAKESDate: 11/11/2020 06:39""""ORIGINAL&q uot;"Vent Rate: 82 bpmRR Interval: 732 msecPR Interval: 112 msecQRS Duration: 90 msecQT Interval: 402 msecQTC Interval: 470 msecP-R-T [place]: 84 - 81 - 68 degrees""Sinus rhythm...normal P axis, V-rate 50- 99Borderline short NH interval...NH int <120mSBiatrial enlargement...P>80mS,<-0.15mV V1 &>0.30mV 2 ldsRSR' in V1 or V2, right VCD or RVH...QRS area positive & R' V1/V2""Study Da te: ""Electronically Signed By: Rocky GOLDSTEIN MD: 11/10/2020 17:25 Above is a corrected result. Previously reported on ( MsgRcvd 11/10/2020 17:26) as:-- Vent Rate: 82 bpmRR Interval: 732 msecPR Interval: 112 msecQRS Duration: 90 msecQT Interval: 402 msecQTC Interval: 470 msecP-R-T [place]: 84 - 81 - 68 degrees""Sinus rhythm...normal P axis, V-rate 50- 99Borderline short NH interval...NH int <120mSBiatrial enlargement...P>80mS,<- 0.15mV V1 &>0.30mV 2 ldsRSR' in V1 or V2, right VCD or RVH...QRS area positive & R' V1/V2""Study Date: ""Electronically Signed By: ANGI GOLDSTEIN MD PAGE: [address] [place] [address] GAVIN Samuel [address] [place] [address] [facility] NUM: [id number] : 1990 Date: 11/10/2020 17:25 CBC w Diff: (MASOUD: 11/10/2020 16:45)( MsgRcvd 11/10/2020 16:49) Final results Test Result Flag Units (Reference)WBC 16.2 H x10E3/uL (4.3-10.9) RBC 4.50 x10E6/uL (3.80-5.30) HEMOGLOBIN 12.0 g/dl (11.8-15.8) HEMATOCRIT 38.5 % (35.0-47.0) MCV 85.6 fl (82.0- 98.0) MCH 26.7 L pg (27.5-33.5) MCHC 31.2 L g/dl (32.0-36.0) RDW 15.5 H % (11.5-14.5) PLATELET COUNT 460 H x10E3/uL (130-400) MPV 9.5 fl (8.6-12.6) SEGMENTED NEUTROPHILS 74.3 H % (44.0-74.0) LYMPHOCYTES 13.4 L % (15.0-45.0) MONOCYTES 7.9 % (2.0-13.0) EOSINOPHILS 4.0 % (0.0-6.0) BASOPHILS 0.4 % (0.0-2.0) NEUTROPHIL ABSOLUTE 12.0 H x10E3/uL (1.4-7.0) LYMPHOCYTES ABSOLUTE 2.2 x10E3/uL (1.0-3.4) MONOCYTE ABSOLUTE 1.3 H x10E3/uL (0.2-1.0) EOSINOPHIL ABSOLUTE 0.6 H x10E3/uL (0.0-0.5) BASOPHIL ABSOLUTE 0.1 x10E3/uL PAGE: [address] [place] [address] GAVIN Samuel [id number] [facility] [address] NUM: [id number] : 1990 (0.0-0.2) Comprehensive Panel: (MASOUD: 11/10/2020 16:45)( MsgRcvd 11/10/2020 17:13) Final results Test Result Flag Units (Reference)GLUCOSE 93 mg/dl (70-100) BUN 10 mg/dl (4-18) CREATININE, SERUM 0.76 mg/dl (0.50-1.10) SODIUM 139 mmol/l (136-146) POTASSIUM 4.7 mmol/l (3.5-5.3) CHLORIDE 98 mmol/l (96-109) CARBON DIOXIDE 32 mmol/l (20-32) ALBUMIN 3.9 g/dl (3.5-5.0) PROTEIN, TOTAL 8.1 g/dl (6.4-8.2) CALCIUM 9.8 mg/dl (8.4-10.4) ALKALINE PHOSPHATASE 133 H U/l (10-118) SGOT (AST) 50 H U/l (3-40) SGPT (ALT) 22 U/l (7-50) BILIRUBIN, TOTAL 0.34 mg/dl (0.30-1.20) BUN/CREATININE RATIO 13.2 (6.0-20.0) GLOBULIN 4.2 H g/dl (2.3-3.5) ANION GAP 9.0 mmol/l (7.0-16.0) OSMOLALITY (CALCULATED) 276 L mos/kg (280-300) A/G RATIO 0.9 L (1.0-2.0) Urine Drug Screen: (MASOUD: 11/10/2020 17:05)( MsgRcvd 11/10/2020 17:30) Final results PAGE: [address] [place] [address] [facility] NUM: [id number] : 1990 Test Result Flag Units (Reference)SCREEN INTERPRETATION SEE NOTE Methodology for the test(s) below is for screening purposes only and the reference range for these tests is Negative. Positive results should be considered presumptive. . . AMPHETAMINES POSITIVE AB Screen Cutoff 1000 ng/ml. . BARBITURATES POSITIVE AB Screen Cutoff 200 ng/ml. . BENZODIAZEPINES NEGATIVE Screen Cutoff 300 ng/ml. . COCAINE NEGATIVE Screen Cutoff 300 ng/ml. . OPIATES POSITIVE AB Screen Cutoff 300 ng/ml. . PH ENCYCLIDINE (PCP) NEGATIVE Screen Cutoff 25 ng/ml. . CANNABIS (THC) NEGATIVE Screen Cutoff 50 ng/ml. . TRICYCLIC ANTIDEPRESSNT NEGATIVE (NEGATIVE) PAGE: [address] [place] [address] [facility] NUM: [id number] : 1990 Screen Cutoff 500 ng/ml. . Alcohol: (MASOUD: 11/10/2020 16:45)( [facility] 11/10/2020 17:13) Final results Test Result Flag Units ( Reference)ETHANOL (BLOOD) 0.000 % (0.000-0.010) This test result should only be used for MEDICAL or THERAPEUTIC purposes. Acetaminophen Level: (MASOUD: 11/10/2020 16:45)( [facility] 11/10/2020 17:13) Final results Test Result Flag Units (Reference)ACETAMINOPHEN <15.0 ug/ml (15.0-25.0) Salicylate Level: (MASOUD: 11/10/2020 16:45)( [facility] 11/10/2020 17:13) Final results Test Result Flag Units (Reference)SALICYLATE <0.5 mg/dL (0.0-29.9) RPR: (MASOUD: 11/10/2020 16:45)( [facility] 11/10/2020 17:21) Final results Test Result Flag Units (Reference)RPR NON-REACTIVE (NON-REACTIVE) TSH: (MASOUD: 11/10/2020 16:45)( [facility] 11/10/2020 17:21) Final results Test Result Flag Units (Reference)TSH (THYROTROPIN) 2.000 uIU/ml (0.490-4.670) Urinalysis, Culture if indicated: (MASOUD: 11/10/2020 17:05)( [facility] 11/10/2020 17:24) Final results Test Result Flag PAGE: [address] [place] [address] GAVIN [id number] [place] [address] [facility] REC NUM: [id number] : 1990 Units (Reference)URINE COLOR YELLOW (YELLOW) URINE APPEARANCE CLEAR (CLEAR) URINE SPECIFIC GRAVITY 1.024 (1.003-1.035) URINE LEUKOCYTES NEGATIVE (NEGATIVE) URINE NITRITE NEGATIVE (NEGATIVE) URINE PH 6.0 (5.0-8.0) URINE PROTEIN 1+ AB (NEGATIVE) URINE GLUCOSE NEGATIVE (NEGATIVE) URINE KETONES NEGATIVE (NEGATIVE) URINE UROBILINOGEN NORMAL mg/dl (NORMAL OR <1)URINE BILIRUBIN NEGATIVE (NEGATIVE) URINE OCCULT BLOOD NEGATIVE (NEGATIVE) URINE MICROSCOPIC PERFORMED Microscopic performed. Elements observed are listed. If no elements are listed,the Microscopic is negative. WBC 0-5 hpf (0-5) RBC 0-3 hpf (0-3) HYALINE CAST 6-10 AB lpf (NEGATIVE) EPITHELIAL CELLS 0-5 hpf (0-5) MUCOUS THREADS 1+ AB hpf (NEGATIVE) URINE C+S IF INDICATED NOT INDICATED . PROGRESS AND PROCEDURESCourse of Care: 799Nov 11 2020. Patient was initially examined by previous PAGE: [address] [place] [address] GAVIN Samuel [id number] [place] [address] [facility] REC NUM: [id number] : 1990 ED attending. I assumed care of the patient at shift change. Please refer to the previous provider note for full HPI/ROS/PE for details. Patient was brought in to the ED as 2208 after being found rolling around in he road and flailing around. Patient admitted to using heroin and amphetamines. Patient required a B-52 while she was here. Patient pending dispo per SW 1142 Nov 11 2020. Patient reassessed at this time. Patient is sleeping in the stretcher, NAD. She is asking for more time to sleep. Patient denies SI/HI and AV hallucinations. Patient pending dispo per sw Patient s/p B52. Social work came to me stating that the patient has not slept for 7 days. We have been unable to further assess patient due to her lethargy. Patient's care will be signed out to the night time physician d/t end of shift. Patient pending reassessment and disposition. Awake and cleared by crisis and sent home, well rested. 11/11/2020 03:35 BP: 110/69. MAP: 82. HR: 74. RR: 16. O2 saturation: 96%. Vital Signs: have been reviewed. ED care transferred. Case discussed with Dr. Way. Patient/family counseled. Disposition orders written. CLINICAL IMPRESSIONChronic substance abuse- narcotics, stimulants with intoxication. INSTRUCTIONSFollow-up:Follow up with doctor in two days. Understanding of the discharge instructions verbalized by patient. Follow-up with: [facility], Psychiatry/Behavioral Health, , [address] [place] [address], [facility] (Electronically signed by BALA SANZ DO 11/12/2020 08:20) PAGE: [address] [place] [address] [place] [address] [place] [address] MED REC NUM: [id number] : 1990 Addenda for GAVIN KENDALL VisitID: [id number] Date: 11/10/2020 11/11/2020 13:27I, allison Arthur, documenting for and in the presence of Dr. SanzThe patient was evaluated during the global COVID-19 pandemic, and that diagnosis was suspected/considered upon their initial presentation. Their evaluation, treatment and testing was consistent with current guidelines for patients that presents with complaints or sxs that may be related to COVID-19 (Electronically signed by CHASIDY NUR - 11/11/2020 13:27) Name Value Range Interpretation Code Description Data Daniela rce(s) Supporting Document(s) ID Date Data Source [id number] 11/10/2020 05:29:00 PM EDT [facility] Name Value Range Interpretation Code Description Data Daniela rce(s) Supporting Document(s) SCREEN INTERPRETATION SEE NOTE [facility] Methodology for the test(s) be low is for screening purposes only and the reference range for these tests is Negative. Positive results should be considered presumptive. . . AMPHETAMINES POSITIVE [facility] Screen Cutoff 1000 ng/ml. . BARBITURATES POSITIVE A [facility] pital Screen Cutoff 200 ng/ml. . BENZODIAZEPINES NEGATIVE [facility] Screen Cutoff 300 ng/ml. . COCAINE NEGATIVE [facility] Screen Cutoff 300 ng/ml. . OPIATES POSITIVE A [facility] Screen Cutoff 300 ng/ml. . PHENCYCLIDINE (PCP) NEGATIVE [facility] Screen Cutoff 25 ng/ml. . CANNABIS (THC) NEGATIVE [facility] ospital Screen Cutoff 50 ng/ml. . TRICYCLIC ANTIDEPRESSNT NEGATIVE NEGATIVE [facility] Screen Cutoff 500 ng/ml. . R [facility], Dept of Path [address] [place] [id number] * ID Date Data Source [id number] 11/10/2020 05:24:00 PM EDT [facility] Name Value Range Interpretation Code Description Data Daniela rce(s) Supporting Document(s) URINE COLOR YELLOW YELLOW [facility] URINE APPEARANCE CLEAR CLEAR [facility] URINE SPECIFIC GRAVITY 1.024 1.003-1.035 [facility] URINE LEUKOCYTES NEGATIVE NEGATIVE [facility] URINE NITRITE NEGATIVE NEGATIVE [facility] URINE PH 6.0 5.0-8.0 [facility] URINE PROTEIN 1+ NEGATIVE A [facility] URINE GLUCOSE NEGATIVE NEGATIVE [facility] URINE KETONES NEGATIVE NEGATIVE [facility] URINE UROBILINOGEN NORMAL mg/dl NORMAL OR <1 [facility] URINE BILIRUBIN NEGATIVE NEGATIVE [facility] URINE OCCULT BLOOD NEGATIVE NEGATIVE [facility] URINE MICROSCOPIC PERFORMED [facility] Microscopic performed . Elements observed are listed. If no elements are listed,the Microscopic is negative. WBC 0-5 hpf 0-5 [facility] al RBC 0-3 hpf 0-3 [facility] HYALINE CAST 6-10 lpf NEGATIVE A [facility] pital EPITHELIAL CELLS 0-5 hpf 0-5 [facility] MUCOUS THREADS 1+ hpf NEGATIVE A [facility] ospital URINE C+S IF INDICATED NOT INDICATED [facility] R [facility], Dept of Pat h [address] [place], [place] [id number] * ID Date Data Source [id number] 11/10/2020 05:21:00 PM EDT [facility] Name Value Range Interpretation Code Description Data Daniela rce(s) Supporting Document(s) TSH (THYROTROPIN) 2.000 uIU/ml 0.490-4.670 [facility] [address] [address] * ID Date Data Source [id number] 11/10/2020 05:21:00 PM EDT [facility] Name Value Range Interpretation Code Description Data Daniela rce(s) Supporting Document(s) RPR NON-REACTIVE NON-REACTIVE [facility] [address] [address] * ID Date Data Source [id number] 11/10/2020 05:12:00 PM EDT [facility] Name Value Range Interpretation Code Description Data Daniela rce(s) Supporting Document(s) ESTIMATED GFR (CALCULATED) [facility] EGFR 105 [facility] >59 mL/min/1.73m2 EGFR, -BERMUDIAN 121 [facility] >59 mL/min/1.09m3Fmxx: Persistent reduction for 3 months or more in an eGFR <60 mL/min/1.73m2 defines CKD. Patients with eGFR values >=60 mL/min/1.73m2 may also have CKD if evidence of persistent proteinuria is present. Additional information may be found at [email or web address]. R [facility], [facility] [address] [address] * ID Date Data Source [id number] 11/10/2020 05:12:00 PM EDT [facility] Name Value Range Interpretation Code Description Data Daniela rce(s) Supporting Document(s) SALICYLATE <0.5 mg/dL 0.0-29.9 [facility], [facility] [address] [address] * ID Date Data Source [id number] 11/10/2020 05:12:00 PM EDT [facility] Name Value Range Interpretation Code Description Data Daniela rce(s) Supporting Document(s) ACETAMINOPHEN <15.0 ug/ml 15.0-25.0 [facility] [address] [address] * ID Date Data Source [id number] 11/10/2020 05:12:00 PM EDT [facility] Name Value Range Interpretation Code Description Data Daniela rce(s) Supporting Document(s) ETHANOL (BLOOD) 0.000 % 0.000-0.010 [facility] This test result should only be used for MEDICAL or THERAPEUTIC purposes. R [facility], Dept of Path [address] [place] [address] * ID Date Data Source [id number] 11/10/2020 05:12:00 PM EDT [facility] Name Value Range Interpretation Code Description Data Daniela rce(s) Supporting Document(s) GLUCOSE 93 mg/dl 70-100 [facility] BUN 10 mg/dl 4-18 [facility] CREATININE, SERUM 0.76 mg/dl 0.50-1.10 [facility] SODIUM 139 mmol/l 136-146 [facility] POTASSIUM 4.7 mmol/l 3.5-5.3 [facility] CHLORIDE 98 mmol/l 96-109 [facility] CARBON DIOXIDE 32 mmol/l 20-32 [facility] ospital ALBUMIN 3.9 g/dl 3.5-5.0 [facility] PROTEIN, TOTAL 8.1 g/dl 6.4-8.2 [facility] ospital CALCIUM 9.8 mg/dl 8.4-10.4 [facility] ALKALINE PHOSPHATASE 133 U/l 10-118 H [facility] SGOT (AST) 50 U/l 3-40 H [facility] SGPT (ALT) 22 U/l 7-50 [facility] BILIRUBIN, TOTAL 0.34 mg/dl 0.30-1.20 [facility] BUN/CREATININE RATIO 13.2 6.0-20.0 [facility] GLOBULIN 4.2 g/dl 2.3-3.5 H [facility] ANION GAP 9.0 mmol/l 7.0-16.0 [facility] OSMOLALITY (CALCULATED) 276 mos/kg 280-300 L [facility] A/G RATIO 0.9 1.0-2.0 L [facility] R [facility], Dept of [facility] [address] [id number] * ID Date Data Source [id number] 11/10/2020 04:49:00 PM EDT [facility] Name Value Range Interpretation Code Description Data Daniela rce(s) Supporting Document(s) WBC 16.2 x10E3/uL 4.3-10.9 H [facility] spital RBC 4.50 x10E6/uL 3.80-5.30 [facility]ital HEMOGLOBIN 12.0 g/dl 11.8-15.8 [facility] laura HEMATOCRIT 38.5 % 35.0-47.0 [facility] laura MCV 85.6 fl 82.0-98.0 [facility] al MCH 26.7 pg 27.5-33.5 L [facility] MCHC 31.2 g/dl 32.0-36.0 L [facility] al RDW 15.5 % 11.5-14.5 H [facility] al PLATELET COUNT 460 x10E3/uL 130-400 H [facility] MPV 9.5 fl 8.6-12.6 [facility] al SEGMENTED NEUTROPHILS 74.3 % 44.0-74.0 H [facility] LYMPHOCYTES 13.4 % 15.0-45.0 L [facility] MONOCYTES 7.9 % 2.0-13.0 [facility] al EOSINOPHILS 4.0 % 0.0-6.0 [facility] BASOPHILS 0.4 % 0.0-2.0 [facility] NEUTROPHIL ABSOLUTE 12.0 x10E3/uL 1.4-7.0 H [facility] LYMPHOCYTES ABSOLUTE 2.2 x10E3/uL 1.0-3.4 [facility] MONOCYTE ABSOLUTE 1.3 x10E3/uL 0.2-1.0 H [facility] EOSINOPHIL ABSOLUTE 0.6 x10E3/uL 0.0-0.5 H [facility] BASOPHIL ABSOLUTE 0.1 x10E3/uL 0.0-0.2 [facility] R [facility], Dept of Pat h [address] [id number] * ID Date Data Source [id number] 11/11/2020 06:39:52 AM EDT [facility] ADDENDUM Vent Rate: 82 bpmRR Interval: 732 msecPR Interval: 112 msecQRS Duration: 90 msecQT Interval: 402 msecQTC Interval: 470 msecP-R-T [place]: 84 - 81 - 68 degreesSinus rhythm...normal P axis, V-rate 50- 99Borderline short NH interval...NH int <120mSRSR' in V1 or V2, right VCD or RVH...QRS area positive \\T\\ R' V1/S8Iypcujzsve right bundle branch blockBorderline QTC prolongationStudy Date: [id number] Signed By: NIGEL GEE, RUSSELLDate: 11/11/2020 06:39ORIGINALVent Rate: 82 bpmRR Interval: 732 msecPR Interval: 112 msecQRS Duration: 90 msecQT Interval: 402 msecQTC Interval: 470 msecP-R-T [place]: 84 - 81 - 68 degreesSinus rhythm...normal P axis, V-rate 50- 99Borderline short NH interval...NH int <120mSBiatrial enlargement...P>80mS,<-0.15mV V1 \\T\\>0.30mV 2 ldsRSR' in V1 or V2, right VCD or RVH...QRS area positive \\T\\ R' V1/M2Hjiuy Date: 0833Electronically Signed By: TRISTON GEE, ANDREWDate: 11/10/2020 17:25 Name Value Range Interpretation Code Description Data Daniela e(s) Supporting Document(s) ID Date Data Source [id number] 08/24/2020 02:11:37 PM EDT [facility] Name Value Range Interpretation Code Description Data Daniela rce(s) Supporting Document(s) ED Provider Note [facility] GBJQWw6uBnBXVsBh51/KTQavCCSqj4HzVJozHXx1TKtgAUBtQ5GhYTA2aN2vAYH6GOgGMsMaKyIhFdD4 lbm PdOvcQAuLsWADoRgfKJkOaJDxhLuwgfCDpMM1QyDI1SBDrE08eANChWMEhQ2WxMGNqGIn+Mh5HBTDmpK PeHR3KLalL0F8rp0lOIc9ohK+B3+mNNwsD10TOFy7bUXhLdJO6uxC795HRbYtdDSwr6He751bDNjMyE5 ZCyEjttkOGkaGwfyvob6XYFok6g4/WKPCUUlb+78PP ILKtybX1+84Mu9Zi+2NM4311tNdnn1QQ0E0NT0e/aqIeT1p+a5Pg8HhDn+lyhGy937kjDd+6mO6d/2Bd /NvSjpNdycBJCRYTZ+V6GBThtIBEigQ55ZDH6aGHQfhHBu0mQP5eCVjDt+SEPP8kwqJnPCWglDCI9ssO P9RU0GQuy8Orw+TIJowb2R+uLIYPYlt1SdjJEFGcDt oU/DBHXo20KV5hlY5Lsb4k4tO9q0ozs2wPkOBAj8x9eLF+mlq0hEFjRtIokxbOl9ABpM+rSme1q+2cin jW6olIzggZMrX+rmn91DBgAvoWS8OqONvJxHvZqXJppqLRQjt2fEZPItyqoZznddrACKYbGmdK0jEsmZ H2jRu0jWv8f959YsQNLPGQ2uHYlE9OsWAsYpPJWVBP QlYEE5AxCuxFlqzPYW68N9+R+qWAor+3lv8TFCWQaRuF18FdGZo4eJs+oIpfagl2wIsPlwjmRNmYDEEo fFp6aAwRbmm2i6rpNSBm1kc8P9EGj6vWUW9Xx3pbaxPwGTivZ/ODeRVrw9g7rff4h1r1A3ptGhBEGy0j cbBv4po/mndB6N2N/fEn6u7agwpriP+5kiqaS3GLbs Wug2gL/tmhFeUBQKPjnspNf2kXPqeoGoimL7jQfrw2Y9KB3oXT6BC17/KyUdxARrDiPZNsQLD838r8j6 eTe+v8eakOCWyUf4lU9y5YxLdd/hmvVyQ34ljpCK1aibEfbbgIeNID7OE+Linb4JkR+s7VnuowdL/Paige [file] M/xKJ+NSod+[employer]+7Vj2LZ9/bGwxbVo5vqyBbCF1QPw52vodv2tuEId6qbk4/pqP/IkQuzTVhp1bFRpRaZ [file] AzMjIzNyAwMDAwMCBuDQowMDAwMDMyNDQzIDAwMDAw WP5IExPvWRAnNeU9XNEwKHIhWFQkuh1ZEMDtAFDuJzRcNDCmCAJrIMQcOWjgHIBkVBGeEomrQRQbSBMu VT3GCsCqXFVdYmU6WIScJRItVEKqau1STYOxWKAnXKw7UYZgFZRoRVHnBCghBSTwRAO9VTQdHDAsQSRo UH2DOxUvFYSyRjOlWCPyDINbGDVjwi3KUEKuXMHxTo T2HFAoOKAhBJQhMInbPDNjOJA4XYsyNCMmNNFpRX6PLjRpEAUwAFi3DQanYSOkYEAkst3RDWGqKHW6EE W9ZHGqCEObXOZeYVdzLPYxEEC0Ltm7GMZqARPlYW5PTbRyMWKiUNr9DpYcYJZeNMTnhi9DZCHkZJM9DM e7MZDxOKXzJOUmFDqcKXNdRYL5BmVyMSRtTMVgFU0G MuDwQTGwZNr0UMDmWVHgVJKtxf5WWMNzXBO4TXX5LPJvOHKrLIXjQXfnTBYsNGEeBDUwLQWwYZNuXG3B KpRxRGPpNMXeSSyuRCNlWEByal9UNHXoAEW6UPC1FDLuFBCaDJXuBFbaFQDpPRD6NXVcBGYtTUPjMB2R NtMlHKAcXlu8MRWbSXKmYKVguq9PYRLdWVL4EJz5DO CjYKBjGFCaVMwxLBNwNHI8IYemUNLgIDCjDS6RFqMwRMXbHmflBEOwNTFdSZVznb1CMIOwYIC7HTrgBK TyAOElLSAtTEbmKWUnPXkoDeQ5CVYfMAIpEH2EZtSiAVGoShRkZUIyXLQcAGCtul4DJDSvDPC4NVZ0GD MfSYYpZTVwROmyWPSjELbiTyZ4DCVgETMxBH7QQrCq NJUqAnV9SfzgYXVvNBQpnq5LVGNaMEZ0FhFsZfFfCPVdYDZcIHeuKYIpYUgbEclnZOTqSSIvXE9EGtHz HGrxSAUGHhq7OCqnB3v5HTG3GX4FE1Ixq5PiNUdgOLWRMFqiGN0qptMsGFFqCn2LR6cFAyr6XTH7HYZy BsNeSeykMJo8PRXsTLZhAsBeNrYvQ5LoHW9mMLldHD AxZJToK9C1FYU3JjK0IIZ9OqIoKGD6MCP5VPWfQiEtQW6GGc6KKiU6ZJV6fBAwBn2CZgW2DIBCDfZiCP 9GDQo= ID Date Data Source [id number] 08/19/2020 03:05:00 AM EDT [facility] Name Value Range Interpretation Code Description Data Daniela rce(s) Supporting Document(s) ED Provider Note [facility] XXPGBp2kMoMBDiQo64/YTTqbUKSrf2OiLFzkSYg7QAvqMJYjA9EgVSP4rG3kRVS6IKvRIfAgBxOeGbLj lbm [file] KfLgU4AkGnUS9NGh0WMdB2XVT3pSIzDk0INMD2WkQZHtKfEO8MDQf= ID Date Data Source [id number] 08/17/2020 04:17:26 PM EDT [facility] Name Value Range Interpretation Code Description Data Daniela rce(s) Supporting Document(s) Consultation [facility] NQLAHu3vNxQBRwVc01/JSCbeOJSyg3QlFYyvGWv1OAxoNWKeS3IaQOQ2zG4cMZW8RYaQQyDgReNrHyX1 lbm ZgKefADiBiMVWjEujVWjMaJVfvZrmdeBFgNJ2UhRA2XZTzW68hICOuNLPiK2VdHVS2NAN+Vb2SGSFqvF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 including automated exposure control anditerative reconstruction technique.COMPARISON: No prior studies are available for comparison.FINDINGS:Airways: The trachea and mainstem bronchi are unremarkable.Pleural Spaces: There is a 6.3 x 11 mm groundglass opacity of the right lungapex (series 5 image #12). No pneumothorax. A small right pleural effusion isnoted. There is segmental atelectasis of the right middle lobe.Lungs: The lungs are clear.Heart: Normal. No cardiomegaly. No pericardial ef fusion.Vasculature: Normal. No aortic aneurysm.Lymph nodes: There is no mediastinal, axillary, or hilar adenopathy.Mediastinum: Normal.Upper Abdomen: For evaluation of the upper abdominal structures, see CT ofabdomen and pelvis performed same day, reported separately.Bones and chest wall: There is a focal sclerosis of the mid sternum (series 602image #41), that may represent an acute nondisplaced impacted fracture versuspre-existing sternal lesion.IMPRESSION:6.3 x 11 mm groundglass opacity of the right lung apex, may represent a lungcontusion versus a developing neoplasm. Follow-up to resolution is suggested.Segmental atelectasis of the right middle lobe.Small right pleural effusion.A [place] message has been communicated to JONATAN DOWLING MD via the [employer] system on 08/17/2020 12:34 AM, Message ID [id number].Electronically Signed By: Cristina MORGAN MDte: 08/17/2020 00:34 Name Value Range Interpretation Code Description Data [facility](s) Supporting Document(s) ID Date Data Source [id number] 08/17/2020 12:23:51 AM EDT [facility] CLINICAL HISTORY: Neck pain, 4 jeter a ccidentTECHNIQUE: Axial imaging of the cervical spine was performed without the use ofintravenous contrast with axial, sagittal, and coronal reformatted images. CTimaging was performed utilizing dose reduction techniques including automatedexposure control and iterative reconstruction technique.COMPARISON: NoneFINDINGS:Alignment: The cervical vertebral bodies are normally aligned. There is nosubluxation. The spinolaminar line is intact.Vertebrae: There is mild dextroscoliotic curvature of the cervical spine.Disc spaces/arthritis: Disc height is maintained.Soft tissues: There is no prevertebral swelling. The soft tissues areunremarkable.Lung apices: There is a 6.3 x 11 mm (series 6 image 64) right apical groundglassopacity, that may represent a lung contusion versus possible developingneoplasm.IMPRESSION:No acute fracture or subluxation.6.3 x 11 mm right apical groundglass opacity, may represent a lung contusionversus a developing neoplasm. Follow-up to resolution is recommended.For more sensitive neuroimaging evaluation or in the presence of unexplainedneurological symptoms, MRI may be beneficial in the appropriate clinicalcontext.Electronically Signed By: Shanelle MORGAN MD: 08/17/2020 00:22 Name Value Range Interpretation Code Description Data Daniela lairde(s) Supporting Document(s) ID Date Data Source [id number] 08/17/2020 12:18:31 AM EDT [facility] CLINICAL HISTORY: Dizziness, moderate pa in, 4 jeter accidentTECHNIQUE: Unenhanced axial images of the brain were obtained and displayed withsagittal and coronal reformats. CT imaging was performed utilizing dosereduction techniques including automated exposure control and iterativereconstruction technique.COMPARISON: No prior studies are available for comparison.FINDINGS:Cerebral parenchyma: There is normal dunn-white differentiation in both cerebralhemispheres. There is no mass effect or midline shift.Posterior fossa: The brainstem and cerebellum are unremarkable.Ventricles: Normal in size for the patient's age.Extra-axial spaces: No abnormal subdural or epidural collection.Bones: No fracture seen.Sinuses: There is minimal mucosal thickening of bilateral ethmoid sinuses.Bilateral mastoid air cells and orbits are within normal limits.IMPRESSION:No acute intracranial abnormality.If there is suspicion of acute stroke or if there are unexplained neurologicsymptoms, further assessment may be warranted. Consider follow-up MRI ifclinically appropriate. If MRI is not feasible, a follow-up CT scan in 24 to 48hours could be considered.Electronically Signed By: JORGE A MORGAN MDC.S. [facility] HOSPITALTente: 08/17/2020 00:17 Name Value Range Interpretation Code Description Data Daniela rce(s) Supporting Document(s) ID Date Data Source [id number] 06/12/2020 11:10:00 AM EDT [employer] Name Value Range Interpretation Code Description Data Daniela rce(s) Supporting Document(s) COVID-19 RT-PCR MORTGAGE ANALYST SWAB Not Detected [facility] A not detected (negative) test result fo r this test means that SARS-CoV-2 RNA was not present in the specimen above the limit ofdetection. Laboratory test results should always be considered in thecontext of clinical observations and epidemiological data in making afinal diagnosis and patient management decisions. Results will bereported to government agencies as required.This test has received Emergency Use Authorization (EUA). We will continue to follow federal and state requirements for COVID-19 reporting. This test has been authorized only for the detection of RNAfrom SARS-CoV-2 virus and diagnosis of SARS-CoV-2 virus infection, notfor any other viruses or pathogens. This test is only authorized for the duration of the declaration that circumstances exist justifying the authorization of the emergency use of in vitro diagnostic tests for detection of SARS-CoV-2 virus and/or diagnosis of SARS-CoV-2 virusinfection under section 564(b)(1) of the Act, 21 U.S.C. section 360bbb-3(b)(1), unless the authorization is terminated or revoked sooner. We will continue to follow federal and state requirements for both notification of results and any confirmatory testing that is required by another agency. This test was developed and its performance characteristics determined by [employer] and verified at [facility]. It has not been cleared or approved by the U.S. Food and Drug Administration for diagnostic use. This test has been authorized by FDA under an EUA for use by authorized laboratories. Results should be used in conjunction with clinical findings, and should not form the sole basis for a diagnosis or treatment decision. Methods: SARS-CoV-2 Multiplex RT-PCR Assay ID Date Data Source [id number] 06/12/2020 01:24:00 AM EDT [facility] PAGE: [address] [place] [address] GAVIN KENDALL[address] [place] [address] [facility] NUM: [id number] : 1990 Physician Discharge Report Clinical Report - Physicians/[facility] Department [address] [place] [address] Patient: GAVIN KENDALL : F : 1990 Age: 29yArrival: 06/12/2020 01:24 Departure: 06/12/2020 10:45 Disposition: Discharge Weight:54.4 kg (S). Height/Length:61.5 inches (S). BMI:22.3 Time Seen; upon arrival. Arrived- By ambulance. Historian- patient, EMS personnel and family. HISTORY OF PRESENT ILLNESSChief Complaint: TREMORS and INTOXICATED. Duration of substance abuse- years. Does not want detox. Symptoms started today. Substances abused: Cocaine, amphetamines and narcotics. No fever, chills, nausea, vomiting or diarrhea. No abdominal pain, delusions, hallucinations or suicidal thoughts. She has had tremors and been agitated. Not paranoid. Has not been depressed. The symptoms are described as moderate. No injuries noted. Similar symptoms previously. REVIEW OF SYSTEMSThe patient has not had weight loss. No sweats, headache, dizziness, weakness or chest pain. No palpitations, black stools, bloody stools, sore throat or cough. No difficulty with urination, skin abscess, joint pain or enlarged lymph nodes. No difficulty walking. All other systems reviewed and are negative. PAST HISTORYSee nurses notes. Allergies: PAGE: [address] [place] [address] GAVIN Samuel [id number] [facility] [address] NUM: [id number] : 1990 Banana.(rash)Latex.(rash)[place].(rash)Penicillins. SOCIAL HISTORYHistory of tobacco use. Alcohol use. Drug use. ADDITIONAL NOTESThe nursing notes have been reviewed. PHYSICAL EXAMVital Signs: Have been reviewed. Tachycardic. Appearance: Alert. Patient in moderate distress. Head: Head atraumatic. ENT: Normal ENT inspection. Airway intact. Moist mucous membranes. Pharynx normal. Neck: Normal inspection. Neck supple. CVS: Tachycardia. Normal heart rhythm. Heart sounds normal. Pulses normal. Respiratory: No respiratory distress. Painless inspiration. Breath sounds normal. Abdomen: Soft and nontender. No organomegaly. Back: Normal inspection. Skin: Skin warm and dry. Normal skin color. No rash. Normal skin turgor. Extremities: Extremities exhibit normal ROM. No lower extremity edema. Neuro: Alert. Mood/affect normal. Speech normal. PROGRESS AND PROCEDURESCourse of Care: 08:06 06/12/20. Case SO to Dr Sanz. ED care transferred. Case discussed with Yvon. (Electronically signed by ELIZABETH ALVAREZ MD 06/12/2020 08:07) Weight:54.4 kg (S). Height/Length:61.5 inches (S). BMI:22.3 PAGE: [address] [place] [address] GAVIN Samuel [address] NUM: [id number] : 1990 LABS, X-RAYS, AND EKGLaboratory Tests: EGFR (CALCULATED): (MASOUD: 06/12/2020 09:00)( MsgRcvd 06/12/2020 09:22) Final results Test Result Flag Units (Reference)ESTIMATED GFR (CALCULATED) EGFR 62 >59 mL/min/1.73m2 EGFR, -BERMUDIAN 72 >59 mL/min/1.00o1Qyda: Persistent reduction for 3 months or more in an eGFR <60 mL/min/1.73m2 defines CKD. Patients with eGFR values >=60 mL/min/1.73m2 may also have CKD if evidence of persistent proteinuria is present. Additional information may be found at [email or web address]/professionals/kdoqi. BMP: (MASOUD: 06/12/2020 09:00)( MsgRcvd 06/12/2020 09:22) Final results Test Result Flag Units (Reference)GLUCOSE 117 H mg/dl (70-100) BUN 31 H mg/dl (4-18) CREATININE, SERUM 1.18 H mg/dl (0.50-1.10) SODIUM 144 mmol/l (136-146) POTASSIUM 3.5 mmol/l (3.5-5.3) CHLORIDE 110 H mmol/l (96-109) CARBON DIOXIDE 21 mmol/l (20-32) CALCIUM 8.7 mg/dl (8.4-10.4) BUN/CREATININE RATIO 26.3 H (6.0-20.0) ANION GAP 13.0 mmol/l (7.0-16.0) OSMOLALITY (CALCULATED) 294 mos/kg (280-300) PAGE: [address] [place] [address] GAVIN Samuel [address] NUM: [id number] : 1990 [id number]: (MASOUD: 06/12/2020 08:09)( [facility] 06/12/2020 08:09) Final results EGFR (CALCULATED): (MASOUD: 06/12/2020 02:25)( MsgRcvd 06/12/2020 03:04) Final results Test Result Flag Units (Reference)ESTIMATED GFR (CALCULATED) EGFR 35 AB >59 mL/min/1.73m2 EGFR, -BERMUDIAN 40 AB >59 mL/min/1.78g3Rllk: Persistent reduction for 3 months or more in an eGFR <60 mL/min/1.73m2 defines CKD. Patients with eGFR values >=60 mL/min/1.73m2 may also have CKD if evidence of persistent proteinuria is present. Additional information may be found at [email or web address]/professionals/kdoqi. CBC w Diff: (MASOUD: 06/12/2020 02:25)( [facility] 06/12/2020 02:36) Final results Test Result Flag Units (Reference)WBC 10.4 x10E3/uL (4.3-10.9) RBC 4.14 x10E6/uL (3.80-5.30) HEMOGLOBIN 11.3 L g/dl (11 .8-15.8) HEMATOCRIT 33.3 L % (35.0-47.0) MCV 80.4 L fl (82.0-98.0) MCH 27.3 L pg (27.5-33.5) MCHC 33.9 g/dl (32.0-36.0) RDW 13.3 % (11.5-14.5) PLATELET COUNT 334 x10E3/uL (130-400) PAGE: [address] [place] [address] GAVIN Samuel [address] [place] [address] [facility] REC NUM: [id number] : 1990 MPV 10.4 fl (8.6-12.6) SEGMENTED NEUTROPHILS 70.4 % (44.0-74.0) LYMPHOCYTES 15.7 % (15.0-45.0) MONOCYTES 13.0 % (2.0-13.0) EOSINOPHILS 0.5 % (0.0-6.0) BASOPHILS 0.4 % (0.0-2.0) NEUTROPHIL ABSOLUTE 7.3 H x10E3/uL (1.4-7.0) LYMPHOCYTES ABSOLUTE 1.6 x10E3/uL (1.0-3.4) MONOCYTE ABSOLUTE 1.4 H x10E3/uL (0.2-1.0) EOSINOPHIL ABSOLUTE 0.1 x10E3/uL (0. 0-0.5) BASOPHIL ABSOLUTE 0.0 x10E3/uL (0.0-0.2) Comprehensive Panel: (MASOUD: 06/12/2020 02:25)( MsgRcvd 06/12/2020 03:04) Final results Test Result Flag Units (Reference)GLUCOSE 119 H mg/dl (70-100) BUN 35 H mg/dl (4-18) CREATININE, SERUM 1.91 H mg/dl (0.50-1.10) SODIUM 141 mmol/l (136-146) POTASSIUM 2.9 PL mmol/l (3.5-5.3) Confirmed on reassay CHLORIDE 104 mmol/l (96-109) CARBON DIOXIDE 19 L mmol/l (20-32) ALBUMIN 3.8 g/dl (3.5-5.0) PROTEIN, TOTAL 7.2 g/dl (6.4-8.2) PAGE: [address] [place] [address] GAVIN Samuel [id number] [place] [address] [facility] REC NUM: [id number] : 1990 CALCIUM 8.7 mg/dl (8.4-10.4) ALKALINE PHOSPHATASE 92 U/l (10-118) SGOT (AST) 127 H U/l (3-40) SGPT (ALT) 51 H U/l (7-50) BILIRUBIN, TOTAL 0.48 mg/dl (0.30-1.20) BUN/CREATININE RATIO 18.3 (6.0-20.0) GLOBULIN 3.4 g/dl (2.3-3.5) ANION GAP 18.0 H mmol/l (7.0-16.0) OSMOLALITY (CALCULATED) 290 mos/kg (280-300) A/G RATIO 1.1 (1.0-2.0) Urine Drug Screen: (MASOUD: 06/12/2020 02:44)( [facility] 06/12/2020 03:01) Final results Test Result Flag Units (Reference)SCREEN INTERPRETATION SEE NOTE Methodology for the test(s) below is for screening purposes only and the reference range for these tests is Negative. Positive results should be considered presumptive. . . AMPHETAMINES POSITIVE AB Screen Cutoff 1000 ng/ml. . BARBITURATES NEGATIVE Screen C utoff 200 ng/ml. . BENZODIAZEPINES NEGATIVE Screen Cutoff 300 ng/ml. . PAGE: 7[facility] GAVIN Samuel [address] NUM: [id number] : 1990 COCAINE POSITIVE AB Screen Cutoff 300 ng/ml. . OPIATES POSITIVE AB Screen Cutoff 300 ng/ml. . PHENCYCLIDINE (PCP) NEGATIVE Screen Cutoff 25 ng/ml. . CANNABIS (THC) POSITIVE AB Screen Cutoff 50 ng/ml. . TRICYCLIC ANTIDEPRESSNT NEGATIVE (NEGATIVE) Screen Cutoff 500 ng/ml. . Alcohol: (MASOUD: 06/12/2020 02:25)( [facility] 06/12/2020 03:04) Final results Test Result Flag Units (Reference)ETHANOL (BLOOD) 0.000 % (0.000-0.010) This test result should only be used for MEDICAL or THERAPEUTIC purposes. Acetaminophen Level: (MASOUD: 06/12/2020 02:25)( [facility] 06/12/2020 03:04) Final results Test Result Flag Units (Reference)ACETAMINOPHEN <15.0 ug/ml (15.0-25.0) Salicylate Level: (MASOUD: 06/12/2020 02:25)( [facility] 06/12/2020 03:04) Final results PAGE: [address] NUM: [id number] : 1990 Test Result Flag Units (Reference)SALICYLATE <0.5 mg/dL (0.0-29.9) TSH: (MASOUD: 06/12/2020 02:25)( [facility] 06/12/2020 03:01) Final results Test Result Flag Units (Reference)TSH (THYROTROPIN) 0.799 uIU/ml (0.490-4.670) Urinalysis, Culture if indicated: (MASOUD: 06/12/2020 02:44)( [facility] 06/12/2020 03:01) Final results Test Result Flag Units (Reference)URINE COLOR YELLOW (YELLOW) URINE APPEARANCE SL CLOUDY AB (CLEAR) URINE SPECIFIC GRAVITY 1.030 (1.003-1.035) URINE LEUKOCYTES NEGATIVE (NEGATIVE) URINE NITRITE NEGATIVE (NEGATIVE) URINE PH 6.0 (5.0-8.0) URINE PROTEIN 1+ (30 mg/dl) AB mg/dl (NEGATIVE) URINE GLUCOSE NEGATIVE mg/dl (NEGATIVE) URINE KETONES NEGATIVE mg/dl (NEGATIVE) URINE UROBILINOGEN 0.2 mg/dl (NORMAL OR <1)URINE BILIRUBIN NEGATIVE (NEGATIVE) URINE OCCULT BLOOD TRACE AB (NEGATIVE) URINE MICROSCOPIC PERFORMED Microscopic performed. Elements observed are listed. If no elements are listed,the Microscopic is negative. WBC 6-10 AB hpf (0-5) PAGE: [phone] [place] [id number] [facility] REC NUM: [id number] : 1990 RBC 0-1 hpf (0-3) HYALINE CAST 11- 20 AB lpf (NEGATIVE) AMORPHOUS PRECIPITATES 1+ AB hpf (NEGATIVE) BACTERIA TRACE AB hpf (NEGATIVE) EPITHELIAL CELLS 10-20 AB hpf (0-5) MUCOUS THREADS 2+ AB hpf (NEGATIVE) URINE C+S IF INDICATED NOT INDICATED . PROGRESS AND PROCEDURESCourse of Care: Hydrated, potassium corrected. Observed and feeling better,. Sent home stable. No SI/HI. Disposition: Condition: good. CLINICAL IMPRESSIONMethamphetamine abuse with intoxication with perceptual disturbance. Chronic substance abuse- amphetamines. INSTRUCTIONSFollow-up:Follow up with doctor in two days. Understanding of the discharge instructions verbalized by patient. Follow-up with: Zofia Adamson N.P., , , [facility], [address] [place] [address], [address] (Electronically signed by BALA SANZ DO 06/12/2020 16:46 ) PAGE: [address] [place] [address] [facility] REC NUM: [id number] : 1990 Name Value Range Interpretation Code Description Data Daniela rce(s) Supporting Document(s) ID Date Data Source [id number] 06/12/2020 01:24:00 AM EDT [facility] PAGE: [address] [place] [address] , [place] [address] [facility] REC NUM: [id number] : 1990 Med Reconciliation Patient: GAVIN KENDALL Medication Reconciliation Report [facility]Visit[facility] [id number] [place] [address] [phone], FRegistration Date/Time: 06/12/2020 01:24 Weight: 54.4 kgHeight/Length: 60 in.BMI: 22.3 ALLERGIES:Banana, Latex, [place], Penicillins The patient's Home Medications are listed below: Not obtained.The source(s) of the original Home Medication information: Not obtained.The following Medications were given to the patient in the Emergency Department:Ativan [IM] IM 2 mg, administered: 01:39 06/12/2020HALDOL [IM] IM 5 mg, administered: 02:00 06/12/2020enadryl [IM] IM 50 mg, administered: 02:00 06/12/2020IV NS w/ bolus IV Fluids bolus 0, then 750 mL/hr, administered: 02:42 1Potassium Chloride [IVPB] IVPB bolus 0, then 10 meq 100 mL/hr, administered: 03:24 1Potassium Chloride [IVPB] IVPB bolus 0, then 10 meq 100 mL/hr, administered: 04:38 06/12/2020The following Medications were prescribed to the patient: None. Name Value Range Interpretation Code Description Data Daniela rce(s) Supporting Document(s) ID Date Data Source [id number] 06/12/2020 09:20:00 AM EDT [facility] Name Value Range Interpretation Code Description Data Daniela rce(s) Supporting Document(s) ESTIMATED GFR (CALCULATED) [facility] EGFR 62 [facility] al >59 mL/min/1.73m2 EGFR, -BERMUDIAN 72 [facility] >59 mL/min/1.12k3Nqpv: Persistent reduction for 3 months or more in an eGFR <60 mL/min/1.73m2 defines CKD. Patients with eGFR values >=60 mL/min/1.73m2 may also have CKD if evidence of persistent proteinuria is present. Additional information may be found at [email or web address]. R [facility], Dept of [address] [address] * ID Date Data Source [id number] 06/12/2020 09:20:00 AM EDT [facility] Name Value Range Interpretation Code Description Data Daniela rce(s) Supporting Document(s) GLUCOSE 117 mg/dl 70-100 [facility] BUN 31 mg/dl 4-18 H [facility] CREATININE, SERUM 1.18 mg/dl 0.50-1.10 H [facility] SODIUM 144 mmol/l 136-146 [facility] laura POTASSIUM 3.5 mmol/l 3.5-5.3 [facility] laura CHLORIDE 110 mmol/l 96-109 H [facility] CARBON DIOXIDE 21 mmol/l 20-32 [facility] ospital CALCIUM 8.7 mg/dl 8.4-10.4 [facility] BUN/CREATININE RATIO 26.3 6.0-20.0 H [facility] ANION GAP 13.0 mmol/l 7.0-16.0 [facility] OSMOLALITY (CALCULATED) 294 mos/kg 280-300 [facility], Dept of [place] [id number] * ID Date Data Source [id number] 06/12/2020 03:00:00 AM EDT [facility] Name Value Range Interpretation Code Description Data Daniela rce(s) Supporting Document(s) URINE COLOR YELLOW YELLOW [facility] URINE APPEARANCE SL CLOUDY CLEAR [facility] URINE SPECIFIC GRAVITY 1.030 1.003-1.035 [facility] URINE LEUKOCYTES NEGATIVE NEGATIVE [facility] URINE NITRITE NEGATIVE NEGATIVE [facility] URINE PH 6.0 5.0-8.0 [facility] URINE PROTEIN 1+ (30 mg/dl) mg/dl NEGATIVE [facility] URINE GLUCOSE NEGATIVE mg/dl NEGATIVE [facility] URINE KETONES NEGATIVE mg/dl NEGATIVE [facility] URINE UROBILINOGEN 0.2 mg/dl NORMAL OR <1 [facility] URINE BILIRUBIN NEGATIVE NEGATIVE [facility] URINE OCCULT BLOOD TRACE NEGATIVE A [facility] URINE MICROSCOPIC PERFORMED [facility] Microscopic performed . Elements observed are listed. If no elements are listed,the Microscopic is negative. WBC 6-10 hpf 0-5 A [facility] RBC 0-1 hpf 0-3 [facility] HYALINE CAST 11-20 lpf NEGATIVE A [facility] AMORPHOUS PRECIPITATES 1+ hpf NEGATIVE A [facility] BACTERIA TRACE hpf NEGATIVE A [facility] EPITHELIAL CELLS 10-20 hpf 0-5 A [facility] MUCOUS THREADS 2+ hpf NEGATIVE A [facility]spital URINE C+S IF INDICATED NOT INDICATED [facility] R [facility], Dept of [address] [address] * ID Date Data Source [id number] 06/12/2020 03:00:00 AM EDT [facility] Name Value Range Interpretation Code Description Data Daniela rce(s) Supporting Document(s) SCREEN INTERPRETATION SEE NOTE [facility] Methodology for the test(s) be low is for screening purposes only and the reference range for these tests is Negative. Positive results should be considered presumptive. . . AMPHETAMINES POSITIVE A [facility] Screen Cutoff 1000 ng/ml. . BARBITURATES NEGATIVE [facility] Screen Cutoff 200 ng/ml. . BENZODIAZEPINES NEGATIVE [facility] Screen Cutoff 300 ng/ml. . COCAINE POSITIVE A [facility] Screen Cutoff 300 ng/ml. . OPIATES POSITIVE [facility] Screen Cutoff 300 ng/ml. . PHENCYCLIDINE (PCP) NEGATIVE [facility] Screen Cutoff 25 ng/ml. . CANNABIS (THC) POSITIVE A [facility] ospital Screen Cutoff 50 ng/ml. . TRICYCLIC ANTIDEPRESSNT NEGATIVE NEGATIVE [facility] Screen Cutoff 500 ng/ml. . R [facility], Dept of Path [address] [place] [address] * ID Date Data Source [id number] 06/12/2020 03:02:00 AM EDT [facility] Name Value Range Interpretation Code Description Data Daniela rce(s) Supporting Document(s) SALICYLATE <0.5 mg/dL 0.0-29.9 [facility] R [facility], Dept of Pat [address] [place] [address] * ID Date Data Source [id number] 06/12/2020 03:02:00 AM EDT [facility] Name Value Range Interpretation Code Description Data Daniela rce(s) Supporting Document(s) ACETAMINOPHEN <15.0 ug/ml 15.0-25.0 [facility], Dept of [facility] h [address] [place] [address] * ID Date Data Source [id number] 06/12/2020 03:02:00 AM EDT [facility] Name Value Range Interpretation Code Description Data Daniela rce(s) Supporting Document(s) GLUCOSE 119 mg/dl 70-100 H [facility] BUN 35 mg/dl 4-18 H [facility] CREATININE, SERUM 1.91 mg/dl 0.50-1.10 H [facility] SODIUM 141 mmol/l 136-146 [facility] POTASSIUM 2.9 mmol/l 3.5-5.3 LL [facility] Confirmed on reassay CHLORIDE 104 mmol/l 96-109 [facility] CARBON DIOXIDE 19 mmol/l 20-32 L [facility] ospital ALBUMIN 3.8 g/dl 3.5-5.0 [facility] PROTEIN, TOTAL 7.2 g/dl 6.4-8.2 [facility] ospital CALCIUM 8.7 mg/dl 8.4-10.4 [facility] ALKALINE PHOSPHATASE 92 U/l 10-118 [facility] SGOT (AST) 127 U/l 3-40 H [facility] SGPT (ALT) 51 U/l 7-50 [facility] BILIRUBIN, TOTAL 0.48 mg/dl 0.30-1.20 [facility] BUN/CREATININE RATIO 18.3 6.0-20.0 [facility] GLOBULIN 3.4 g/dl 2.3-3.5 [facility] ANION GAP 18.0 mmol/l 7.0-16.0 H [facility] OSMOLALITY (CALCULATED) 290 mos/kg 280-300 [facility] A/G RATIO 1.1 1.0-2.0 [facility] R [facility], Dept of Pat h [address] [place] [address] * ID Date Data Source [id number] 06/12/2020 03:02:00 AM EDT [facility] Name Value Range Interpretation Code Description Data Daniela rce(s) Supporting Document(s) ESTIMATED GFR (CALCULATED) [facility] EGFR 35 A [facility] >59 mL/min/1.73m2 EGFR, -BERMUDIAN [address] [facility] >59 mL/min/1.60p0Bfiv: Persistent reduction for 3 months or more in an eGFR <60 mL/min/1.73m2 defines CKD. Patients with eGFR values >=60 mL/min/1.73m2 may also have CKD if evidence of persistent proteinuria is present. Additional information may be found at [email or web address]. R [facility], Dept of Path [address] [place], [place] [id number] * ID Date Data Source [id number] 06/12/2020 03:02:00 AM EDT [facility] Name Value Range Interpretation Code Description Data Daniela rce(s) Supporting Document(s) ETHANOL (BLOOD) 0.000 % 0.000-0.010 [facility] This test result should only be used for MEDICAL or THERAPEUTIC purposes. R [facility], Dept of Path [address] [place], [place] [id number] * ID Date Data Source [id number] 06/12/2020 02:59:00 AM EDT [facility] Name Value Range Interpretation Code Description Data Daniela rce(s) Supporting Document(s) TSH (THYROTROPIN) 0.799 uIU/ml 0.490-4.670 [facility], Dept of Pat h [address] [place] [address] * ID Date Data Source [id number] 06/12/2020 02:35:00 AM EDT [facility] Name Value Range Interpretation Code Description Data Daniela rce(s) Supporting Document(s) WBC 10.4 x10E3/uL 4.3-10.9 [facility] spital RBC 4.14 x10E6/uL 3.80-5.30 [facility] HEMOGLOBIN 11.3 g/dl 11.8-15.8 L [facility] HEMATOCRIT 33.3 % 35.0-47.0 L [facility] MCV 80.4 fl 82.0-98.0 L [facility] MCH 27.3 pg 27.5-33.5 L [facility] MCHC 33.9 g/dl 32.0-36.0 [facility] RDW 13.3 % 11.5-14.5 [facility] PLATELET COUNT 334 x10E3/uL 130-400 [facility] MPV 10.4 fl 8.6-12.6 [facility] SEGMENTED NEUTROPHILS 70.4 % 44.0-74.0 [facility] LYMPHOCYTES 15.7 % 15.0-45.0 [facility] MONOCYTES 13.0 % 2.0-13.0 [facility] EOSINOPHILS 0.5 % 0.0-6.0 [facility] BASOPHILS 0.4 % 0.0-2.0 [facility] NEUTROPHIL ABSOLUTE 7.3 x10E3/uL 1.4-7.0 H [facility] LYMPHOCYTES ABSOLUTE 1.6 x10E3/uL 1.0-3.4 [facility] MONOCYTE ABSOLUTE 1.4 x10E3/uL 0.2-1.0 H [facility] EOSINOPHIL ABSOLUTE 0.1 x10E3/uL 0.0-0.5 [facility] BASOPHIL ABSOLUTE 0.0 x10E3/uL 0.0-0.2 [facility] R [facility], [facility] [place] [address] * ID Date Data Source [id number] 06/10/2020 02:30:00 PM EDT [facility] Name Value Range Interpretation Code Description Data Daniela rce(s) Supporting Document(s) SARS-CoV-2 (COVID-19) N gene [Presence] in Respiratory specimen by JASIEL with probe detection NEGATIVE [facility] This lab was ordered by Kellie Obregon and reported by [employer]. ID Date Data Source [id number] 06/10/2020 12:00:00 AM EDT [facility] Name Value Range Interpretation Code Description Data Daniela rce(s) Supporting Document(s) Carestart Rapid COVID Antigen Test Negative [facility] This lab was reported by Kellie morris. ID Date Data Source [id number] 06/05/2020 10:05:00 AM EDT [facility] Name Value Range Interpretation Code Description Data Daniela rce(s) Supporting Document(s) WBC 10.1 x10E3/uL 3.4-10.8 [facility] RBC 4.52 x10E6/uL 3.77-5.28 [facility] Hemoglobin 12.2 g/dL 11.1-15.9 [facility] Hematocrit 37.7 % 34.0-46.6 [facility] MCV 83 fL 79-97 [facility] MCH 27.0 pg 26.6-33.0 [facility] MCHC 32.4 g/dL 31.5-35.7 [facility] RDW 13.8 % 11.7-15.4 [facility] Platelets 320 x10E3/uL 150-450 [facility] Neutrophils 46 % Not Estab. [facility] Lymphs 18 % Not Estab. [facility] Monocytes 4 % Not Estab. [facility] Eos 31 % Not Estab. [facility] Basos 1 % Not Estab. [facility] Neutrophils (Absolute) 4.7 x10E3/uL 1.4-7.0 [facility] Lymphs (Absolute) 1.8 x10E3/uL 0.7-3.1 [facility] Monocytes(Absolute) 0.4 x10E3/uL 0.1-0.9 [facility] Eos (Absolute) 3.1 x10E3/uL 0.0-0.4 Above high normal [facility] Baso (Absolute) 0.1 x10E3/uL 0.0-0.2 [facility] Immature Granulocytes 0 % Not Estab. [facility] Immature Grans (Abs) 0.0 x10E3/uL 0.0-0.1 [facility] Comments: Note: [facility] Verified by microscopic examination. ID Date Data Source [id number] 06/05/2020 10:05:00 AM EDT [facility] Name Value Range Interpretation Code Description Data Daniela rce(s) Supporting Document(s) Protein, Total 6.9 g/dL 6.0-8.5 [facility] Albumin 4.2 g/dL 3.9-5.0 [facility] Bilirubin, Total 0.3 mg/dL 0.0-1.2 [facility] Bilirubin, Direct 0.09 mg/dL 0.00-0.40 [facility] Alkaline Phosphatase 84 IU/L 39-117 [facility] AST (SGOT) 22 IU/L 0-40 [facility] ALT (SGPT) 11 IU/L 0-32 [facility] ID Date Data Source [id number] 06/05/2020 10:05:00 AM EDT [facility] Name Value Range Interpretation Code Description Data Daniela rce(s) Supporting Document(s) Hemoglobin A1c 5.3 % 4.8-5.6 [facility] Prediabetes: 5.7 - 6.4 Diabetes: >6.4 Glycemic control for adults with diabetes: <7.0 ID Date Data Source [id number] 06/05/2020 10:05:00 AM EDT [facility] Name Value Range Interpretation Code Description Data Daniela rce(s) Supporting Document(s) Hep B Surface Ab, Qual Non Reactive [facility] Non Reactiv e: Inconsistent with immunity, less than 10 mIU/mL Reactive: Consistent with immunity, greater than 9.9 mIU/mL ID Date Data Source [id number] 06/05/2020 10:05:00 AM EDT [facility] Name Value Range Interpretation Code Description Data Daniela rce(s) Supporting Document(s) HCV Ab 0.0-0.9 Above high normal [facility] ID Date Data Source [id number] 06/05/2020 10:05:00 AM EDT [facility] Name Value Range Interpretation Code Description Data Daniela rce(s) Supporting Document(s) Comment: [facility] Strong reactive antibody screen (s/c rat io >10.9) is consistentwith past or present HCV infection. Follow-up testing by HCV,Quantitative, Real time PCR (#[id number]) is recommended to determineviral load/diagnosis of current HCV infection. ID Date Data Source [id number] 06/05/2020 10:05:00 AM EDT [facility] Name Value Range Interpretation Code Description Data Daniela rce(s) Supporting Document(s) GGT 13 IU/L 0-60 [facility] ID Date Data Source [id number] 06/05/2020 10:05:00 AM EDT [facility] Name Value Range Interpretation Code Description Data Daniela rce(s) Supporting Document(s) hCG,Beta Subunit,Qual,Serum Negative mIU/mL Negative <6 [facility] ID Date Data Source [id number] 06/05/2020 10:05:00 AM EDT [facility] Name Value Range Interpretation Code Description Data Daniela rce(s) Supporting Document(s) Hep A Ab, IgM Negative Negative [facility] ID Date Data Source [id number] 06/05/2020 10:05:00 AM EDT [facility] Name Value Range Interpretation Code Description Data Daniela rce(s) Supporting Document(s) HBsAg Screen Negative Negative [facility] ID Date Data Source [id number] 06/05/2020 10:05:00 AM EDT [facility] Name Value Range Interpretation Code Description Data Daniela rce(s) Supporting Document(s) Magnesium 2.0 mg/dL 1.6-2.3 [facility] ID Date Data Source [id number] 06/07/2020 01:05:00 PM EDT [facility] Name Value Range Interpretation Code Description Data Daniela rce(s) Supporting Document(s) Hepatitis C Quantitation HCV Not Detected IU/mL [facility] Test Information: [facility] The quantitative range of this assay is 15 IU/mL to 100 million IU/mL. ID Date Data Source [id number] 05/20/2020 11:41:00 PM EST [facility] ([facility]) Name Value Range Interpretation Code Description Data Daniela rce(s) Supporting Document(s) Creatinine [Interpretation] in Urine 296.5NORMALNORMAL [facility] ([facility]) pH of Lower respiratory specimen 5.3NORMALNORMAL [facility] ([facility]) Oxidants [Presence] in Urine -4.00NegativeNegative [facility] ([facility]) Validity Result VALIDVALIDVALID [facility] ([facility]) Amphetamines [Presence] in Stool 326.00NegativeNegative [facility] ([facility]) Barbiturates [Mass/volume] in Serum or Plasma 24.00Negative *Negative [facility] ([facility]) Benzodiazepines [Presence] in Serum or Plasma by Scree n method >200 ng/mL -2.00NegativeNegative [facility] ( [facility]) Buprenorphine [Presence] in Blood by Screen method 115 .50PRESUMPTIVE POSITIVEPRESUMPTIVE POSITIVE NETSMA RT ([facility]) Cocaine Metabolites -15.00NegativeNegative [facility] ([facility]) EDDP -140.00NegativeNegative [facility] ([facility]) Ethyl glucuronide [Mass/volume] in Urine by Confirmato ry method 59.00NegativeNegative [facility] ( [facility]) Ethyl Alcohol 8.00NegativeNegative [facility] ([facility]) Fentanyl [Z-score] in Urine 0.700NegativeNegative [facility] ([facility]) Heroin (6-AM) -0.20NegativeNegative [facility] ([facility]) Methadone [Mass/volume] in Blood -37.00NegativeNegative [facility] ([facility]) Opiates [Presence] in Unknown substance by Confirmator y method -12.00NegativeNegative [facility] ([facility]) Synthetic Opiates -16.00NegativeNegative [facility] ([facility]) Phencyclidine [Presence] in Unknown substance by Confi rmatory method 10.40NegativeNegative [facility] ( [facility]) Cannabinoids [Presence] in Unknown substance by Confir matory method -14.30NegativeNegative [facility] ([facility]) Tramadol [Presence] in Blood by Screen method -7.00Negative *Negative [facility] ([facility]) Tricyclics 329.00NegativeNegative [facility] ([facility]) Ecstasy (MDMA) 23.00NegativeNegative [facility] ([facility]) 6-MOLLY 2.590NegativeNegative [facility] ([facility]) Buprenorphine [Presence] in Blood by Screen method 250 Positive - ConsistentPOSITIVE> [facility] ([facility]) Norbuprenorphine [Mass/mass] in Meconium by Confirmato ry method 500Positive - ConsistentPOSITIVE> [facility] ([facility]) Naloxone [Mass/volume] in Urine by Confirmatory method 15.620NegativeNegative [facility] ([facility]) EDDP 2.860Negative - InconsistentNegative [facility] ([facility]) Methadone [Mass/volume] in Blood 0.000Negative - Inconsis tentNegative [facility] ([facility]) ID Date Data Source [id number] 05/26/2020 03:11:21 PM EDT [facility] NOTE: Presumptive Positive indicates a n onnegative test result by immunoassay screen. It is a preliminary result. [facility] recommends that a Presumptive Positive result be confirmed by an additional, more specific test such as mass spectrometry Name Value Range Interpretation Code Description Data Daniela e(s) Supporting Document(s) Creatinine 296.5NORMALNORMAL mg/dL 20.0-300.0 mg/dL [facility] pH 5.3NORMALNORMAL 3.5-9.2 [facility] Oxidants -4.00NegativeNegative mcg/mL 200.00 mcg/mL [facility] Validity Result VALIDVALIDVALID [facility] ID Date Data Source [id number] 05/26/2020 03:11:22 PM EDT [facility] NOTE: Presumptive Positive indicates a n onnegative test result by immunoassay screen. It is a preliminary result. [facility] recommends that a Presumptive Positive result be confirmed by an additional, more specific test such as mass spectrometry Name Value Range Interpretation Code Description Data Daniela rce(s) Supporting Document(s) Amphetamines 326.00NegativeNegative ng/mL 500.00 ng/mL [facility] Barbiturates 24.00NegativeNegative ng/mL 200.00 ng/mL [facility] Benzodiazepines -2.00NegativeNegative ng/mL 200.00 ng/mL [facility] Buprenorphine 115.50PRESUMPTIVE POSITIVEPRESUMPT MAGALIE POSITIVE ng/mL 10.00 ng/mL [facility] Cocaine Metabolites -15.00NegativeNegative ng/mL 300.00 ng/m L [facility] EDDP -140.00NegativeNegative ng/mL 1000.00 ng/mL [facility] Ethyl Glucuronide 59.00NegativeNegative ng/mL 500.00 ng/mL [facility] Ethyl Alcohol 8.00NegativeNegative mg/dL 100.00 mg/dL [facility] Fentanyl 0.700NegativeNegative ng/mL 1.00 ng/mL [facility] Heroin (6-AM) -0.20NegativeNegative ng/mL 10.00 ng/mL [facility] Methadone -37.00NegativeNegative ng/mL 300.00 ng/mL [facility] Opiates -12.00NegativeNegative ng/mL 300.00 ng/mL [facility] Synthetic Opiates -16.00NegativeNegative ng/mL 100.00 ng/mL [facility] Phencyclidine 10.40NegativeNegative ng/mL 25.00 ng/mL [facility] Cannabinoids -14.30NegativeNegative ng/mL 20.00 ng/mL [facility] Tramadol -7.00NegativeNegative ng/mL 200.00 ng/mL [facility] Tricyclics 329.00NegativeNegative ng/mL 500.00 ng/mL [facility] Ecstasy (MDMA) 23.00NegativeNegative ng/mL 500.00 ng/mL [facility] ID Date Data Source [id number] 05/26/2020 03:11:23 PM EDT [facility] NOTE: Presumptive Positive indicates a n onnegative test result by immunoassay screen. It is a preliminary result. [facility] recommends that a Presumptive Positive result be confirmed by an additional, more specific test such as mass spectrometry Name Value Range Interpretation Code Description Data Daniela rce(s) Supporting Document(s) 6-MOLLY 2.590NegativeNegative ng/mL 10.00 ng/mL [facility] ID Date Data Source [id number] 05/26/2020 03:11:24 PM EDT [facility] NOTE: Presumptive Positive indicates a n onnegative test result by immunoassay screen. It is a preliminary result. [facility] recommends that a Presumptive Positive result be confirmed by an additional, more specific test such as mass spectrometry Name Value Range Interpretation Code Description Data Daniela rce(s) Supporting Document(s) Buprenorphine 250Positive - ConsistentPOSITIVE> ng/mL 5.00 n g/mL [facility] Norbuprenorphine 500Positive - ConsistentPOSITIVE> ng/mL 1 0.00 ng/mL [facility] Naloxone 15.620NegativeNegative ng/mL 25.00 ng/mL [facility] ID Date Data Source [id number] 05/26/2020 03:11:25 PM EDT [facility] NOTE: Presumptive Positive indicates a n onnegative test result by immunoassay screen. It is a preliminary result. [facility] recommends that a Presumptive Positive result be confirmed by an additional, more specific test such as mass spectrometry Name Value Range Interpretation Code Description Data Daniela rce(s) Supporting Document(s) EDDP 2.860Negative - InconsistentNegative ng /mL 50.00 ng/mL Abnormal (applies to non-numeric results) [facility] Methadone 0.000Negative - InconsistentNegative ng /mL 50.00 ng/mL Abnormal (applies to non-numeric results) [facility] ID Date Data Source [id number] 05/19/2020 05:00:00 AM EST [facility] ([facility]) Name Value Range Interpretation Code Description Data Daniela rce(s) Supporting Document(s) Creatinine [Interpretation] in Urine 131.2NORMALNORMAL [facility] ([facility]) pH of Lower respiratory specimen 5.5NORMALNORMAL [facility] ([facility]) Oxidants [Presence] in Urine -8.00NegativeNegative [facility] ([facility]) Validity Result VALIDVALIDVALID NETSMART ([facility]) Amphetamines [Presence] in Stool 222.00NegativeNegative NETSMART ([facility]) Barbiturates [Mass/volume] in Serum or Plasma 14.00Negative *Negative NETSMART ([facility]) Benzodiazepines [Presence] in Serum or Plasma by Scree n method >200 ng/mL -6.00NegativeNegative NETSMART ( [facility]) Buprenorphine [Presence] in Blood by Screen method 118 .90PRESUMPTIVE POSITIVEPRESUMPTIVE POSITIVE NETSMA RT ([facility]) Cocaine Metabolites -2.00NegativeNegative NETSMART ([facility]) EDDP -100.00NegativeNegative NETSMART ([facility]) Ethyl glucuronide [Mass/volume] in Urine by Confirmato ry method 50.00NegativeNegative NETSMART ( [facility]) Ethyl Alcohol 2.00NegativeNegative NETSMART ([facility]) Fentanyl [Z-score] in Urine 0.600NegativeNegative NETSMART ([facility]) Heroin (6-AM) 0.00NegativeNegative NETSMART ([facility]) Methadone [Mass/volume] in Blood -22.00NegativeNegative NETSMART ([facility]) Opiates [Presence] in Unknown substance by Confirmator y method -8.00NegativeNegative NETSMART ( [facility]) Synthetic Opiates 5.00NegativeNegative NETSMART ([facility]) Phencyclidine [Presence] in Unknown substance by Confi rmatory method 5.90NegativeNegative NETSMART ([facility]) Cannabinoids [Presence] in Unknown substance by Confir matory method -13.20NegativeNegative NETSMART ([facility]) Tramadol [Presence] in Blood by Screen method -14.00Negative* Negative NETSMART ([facility]) Tricyclics 312.00NegativeNegative NETSMART ([facility]) Ecstasy (MDMA) 0.00NegativeNegative NETSMART ([facility]) 6-MOLLY 0.000NegativeNegative NETSMART ([facility]) Buprenorphine [Presence] in Blood by Screen method 250 Positive - ConsistentPOSITIVE> NETSMART ([facility]) Norbuprenorphine [Mass/mass] in Meconium by Confirmato ry method 500Positive - ConsistentPOSITIVE> NETSMART ([facility]) Naloxone [Mass/volume] in Urine by Confirmatory method 2500Positive - InconsistentPOSITIVE> NETSMART ([facility]) ID Date Data Source [id number] 05/22/2020 10:54:09 AM EST [facility] NOTE: Presumptive Positive indicates a n onnegative test result by immunoassay screen. It is a preliminary result. [facility] recommends that a Presumptive Positive result be confirmed by an additional, more specific test such as mass spectrometry Name Value Range Interpretation Code Description Data Daniela rce(s) Supporting Document(s) Creatinine 131.2NORMALNORMAL mg/dL 20.0-300.0 mg/dL [facility] pH 5.5NORMALNORMAL 3.5-9.2 [facility] Oxidants -8.00NegativeNegative mcg/mL 200.00 mcg/mL [facility] Validity Result VALIDVALIDVALID [facility] ID Date Data Source [id number] 05/22/2020 10:54:09 AM EST [facility] NOTE: Presumptive Positive indicates a n onnegative test result by immunoassay screen. It is a preliminary result. [facility] recommends that a Presumptive Positive result be confirmed by an additional, more specific test such as mass spectrometry Name Value Range Interpretation Code Description Data Daniela rce(s) Supporting Document(s) Amphetamines 222.00NegativeNegative ng/mL 500.00 ng/mL [facility] Barbiturates 14.00NegativeNegative ng/mL 200.00 ng/mL [facility] Benzodiazepines -6.00NegativeNegative ng/mL 200.00 ng/mL [facility] Buprenorphine 118.90PRESUMPTIVE POSITIVEPRESUMPT MAGALIE POSITIVE ng/mL 10.00 ng/mL [facility] Cocaine Metabolites -2.00NegativeNegative ng/mL 300.00 ng/mL [facility] EDDP -100.00NegativeNegative ng/mL 1000.00 ng/mL [facility] Ethyl Glucuronide 50.00NegativeNegative ng/mL 500.00 ng/mL [facility] Ethyl Alcohol 2.00NegativeNegative mg/dL 100.00 mg/dL [facility] Fentanyl 0.600NegativeNegative ng/mL 1.00 ng/mL [facility] Heroin (6-AM) 0.00NegativeNegative ng/mL 10.00 ng/mL [facility] Methadone -22.00NegativeNegative ng/mL 300.00 ng/mL [facility] Opiates -8.00NegativeNegative ng/mL 300.00 ng/mL [facility] Synthetic Opiates 5.00NegativeNegative ng/mL 100.00 ng/mL [facility] Phencyclidine 5.90NegativeNegative ng/mL 25.00 ng/mL [facility] Cannabinoids -13.20NegativeNegative ng/mL 20.00 ng/mL [facility] Tramadol -14.00NegativeNegative ng/mL 200.00 ng/mL [facility] Tricyclics 312.00NegativeNegative ng/mL 500.00 ng/mL [facility] Ecstasy (MDMA) 0.00NegativeNegative ng/mL 500.00 ng/mL [facility] ID Date Data Source [id number] 05/22/2020 10:54:09 AM EST [facility] NOTE: Presumptive Positive indicates a n onnegative test result by immunoassay screen. It is a preliminary result. [facility] recommends that a Presumptive Positive result be confirmed by an additional, more specific test such as mass spectrometry Name Value Range Interpretation Code Description Data Daniela rce(s) Supporting Document(s) 6-MOLLY 0.000NegativeNegative ng/mL 10.00 ng/mL [facility] ID Date Data Source [id number] 05/22/2020 10:54:09 AM EST [facility] NOTE: Presumptive Positive indicates a n onnegative test result by immunoassay screen. It is a preliminary result. [facility] recommends that a Presumptive Positive result be confirmed by an additional, more specific test such as mass spectrometry Name Value Range Interpretation Code Description Data Daniela rce(s) Supporting Document(s) Buprenorphine 250Positive - ConsistentPOSITIVE> ng/mL 5.00 n g/mL [facility] Norbuprenorphine 500Positive - ConsistentPOSITIVE> ng/mL 1 0.00 ng/mL [facility] Naloxone 2500Positive - InconsistentPOSITIVE> ng /mL 25.00 ng/mL Abnormal (applies to non-numeric results) [facility] ID Date Data Source [id number] 05/20/2020 10:05:00 AM EST [facility] Name Value Range Interpretation Code Description Data Daniela rce(s) Supporting Document(s) Specific Boyce 1.022 1.005-1.030 [facility] pH 5.5 5.0-7.5 [facility] Urine-Color Yellow Yellow [facility] Appearance Turbid Clear Abnormal (applies to non-numeric result s) [facility] WBC Esterase Negative Negative [facility] Protein Negative Negative/Trace [facility] Glucose Negative Negative [facility] Ketones Negative Negative [facility] Occult Blood Negative Negative [facility] Bilirubin Negative Negative [facility] Urobilinogen,Semi-Qn 0.2 mg/dL 0.2-1.0 [facility] Nitrite, Urine Negative Negative [facility] Microscopic Examination [facility] Microscopic follows if indicated. ID Date Data Source [id number] 04/15/2020 04:27:00 PM [facility] PAGE: [address] [place] [address] GAVIN KENDALL[address] [facility] [address] NUM: [id number] : 1990 Med Reconciliation Patient: GAVIN KENDALL Medication Reconciliation Report [facility] [id number] [place] [address] [phone], FRegistration Date/Time: 04/15/2020 16:27 Weight: 45.3 kgHeight/Length: 61 in.BMI: 18.9 ALLERGIES:Banana, Latex, [place], Penicillins The patient's Home Medications are listed below: NONE.The source(s) of the original Home Medication information: Not obtained.The following Medications were given to the patient in the Emergency Department:None.The following Medications were prescribed to the patient: None. Name Value Range Interpretation Code Description Data Daniela rce(s) Supporting Document(s) ID Date Data Source [id number] 04/15/2020 04:27:00 PM [facility] PAGE: [address] [place] [address] GAVIN K[address] [place] [address] [facility] REC NUM: [id number] : 1990 Physician Discharge Report Clinical Report - Physicians/[facility] Department [address] [place] [address] Patient: GAVIN KENDALL : Jorge : 1990 Age: 29yArrival: 04/15/2020 16:27 Departure: 04/15/2020 19:08 Disposition: Discharge Weight:45.3 kg (S). Height/Length:61 inches (S). BMI:18.9 Time Seen: 16:38 04/15/2020. Historian- patient. Supervisory Note: Documentation assistance provided by scribe. Information recorded by the scribe was done at my direction and has been reviewed and validated by me. HISTORY OF PRESENT ILLNESSChief Complaint: CHEST PAIN. This started today and is still present. It is described as located in the central chest area and radiating to the right arm. At its maximum, severity described as moderate. When seen in the E.D., severity described as moderate. Modifying factors. Not worsened by anything. Not relieved by anything. (29 year old F, with PMHx of IV drug abuse, who presents to the emergency department for evaluation of chest pain onset today. This afternoon patient was being arrested when she told PD that she was having chest pain. Patient denies headache, palpitations, shortness of breath, abdominal pain, nvd or any other sxs at this time. She has an abscess in her right AC that she was started on abx for.). Similar symptoms previously. None. Recent medical care: Not recently seen/assessed. REVIEW OF SYSTEMSNo fever, chills, cough, missed periods or abnormal bleeding. No headache, sore throat, blurred vision, abdominal pain or black stools. No difficulty with urination, skin rash, enlarged lymph nodes or joint pain. All other systems reviewed and are negative. PAGE: [address] [place] [address] GAVIN KENDALL[address] [facility] [place] [id number] [facility] REC NUM: [id number] : 1990 PAST HISTORYSee nurses notes. Medications:None. Allergies:Banana.(rash)Latex.(rash)[place].(rash)Penicillins. SOCIAL HISTORYHeavy IV drug use: heroin. No recent travel. ADDITIONAL NOTESThe nursing notes have been reviewed. PHYSICAL EXAMVital Signs: 04/15/2020 16:42 BP: 97/68. MAP: 77. HR: 88. RR: 18. O2 saturation: 99% on room air. Temp: 98.2 F. Pain level now: 6/10. Have been reviewed. Appearance: Alert. Oriented X3. No acute distress. Eyes: Pupils equal, round and reactive to light. Eyes normal inspection. ENT: Ears normal. Nose normal. Pharynx normal. Neck: Normal inspection. Neck supple. CVS: Normal heart rate and rhythm. Heart sounds normal. Respiratory: No respiratory distress. Breath sounds normal. Chest nontender. Abdomen: Soft and nontender. Bowel sounds normal. Back: Normal external inspection. Skin: Skin dry. (induration and significant occlusion of both anticubital spaces.). Extremities: Extremities exhibit normal ROM. No lower extremity edema. Neuro: Oriented X 3. No motor deficit. No sensory deficit. LABS, X-RAYS, AND EKGLaboratory Tests: Chest 1 View Portable: (MASOUD: 04/15/2020 17:32)( MsgRcvd 04/15/2020 17:57) Final results Test Result Flag Units (Reference)Height 154.94 CM -- CHEST PORTABLE VIEW""Clinical History: Chest pain.."" PAGE: [address] [place] [address] GAVIN Samuel [address] [place] [address] [facility] REC NUM: [id number] : 1990 Technique: AP portable view of the chest was obtained.""Comparison: None..""FINDINGS:""""LUNGS: The lungs are lion r.""PLEURA:The costophrenic angles are sharp without pleural effusion.""HEART AND MEDIASTINUM: The heart and mediastinal contours are within normallimits..""BONES: No gross osseous pathology.""IMPRESSION : NO ACUTE CARDIOPULMONARY DISEASE.""Followup PA and lateral radiograph of the chest when possible is recommended.""Electronically Signed By: SP GEE, FREDRICK Joel.Date: 04/15/2020 17:55 EGFR (CALCULATED): (MASOUD: 04/15/2020 16:55)( MsgRcvd 04/15/2020 17:22) Final results Test Result Flag Units (Reference)ESTIMATED GFR (CALCULATED) EGFR 128 >59 mL/min/1.73m2 EGFR, -BERMUDIAN 149 >59 mL/min/1.77k2Oolh: Persistent reduction for 3 months or more in an eGFR <60 mL/min/1.73m2 defines CKD. Patients with eGFR values >=60 mL/min/1.73m2 may also have CKD if evidence of persistent proteinuria is present. Additional information may be found at www.kidney.org/professionals/kdoqi. ELECTROCARDIOGRAM-EMERGENCY DEPT: (MASOUD: 04/15/2020 16:30)( MsgRcvd 04/15/2020 16:56) Final results Test Result Flag PAGE: [address] [place] [address] GAVIN Lizzie [id number] [place] [address] [facility] REC NUM: [id number] : 1990 Units (Reference)-- Vent Rate: 68 bpmRR Interval: 882 msecPR Interval: 119 msecQRS Duration: 86 msecQT Interval: 418 msecQTC Interval: 445 msecP-R-T [place]: 64 - 72 - 64 degrees""Sinus rhythm. ..normal P axis, V-rate 50- 99Borderline short NH interval...NH int <120mSRSR' in V1 or V2, right VCD or RVH...QRS area positive & R' V1/V2""Study Date: ""Electronically Signed By: TRISTON GEE, ANDREWDate: 04/15/2020 16:55 CBC w Diff: (MASOUD: 04/15/2020 16:55)( MsgRcvd 04/15/2020 17:12) Final results Test Result Flag Units (Reference)WBC 8.4 x10E3/uL (4.3-10.9) RBC 4.72 x10E6/uL (3.80-5.30) HEMOGLOBIN 12.7 g/dl (11.8-15.8) HEMATOCRIT 40.1 % (35.0-47.0) MCV 85.0 fl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 Description Data Daniela rce(s) Supporting Document(s) , SERUM NEGATIVE NEGATIVE [facility] [place] [id number] * ID Date Data Source [id number] 03/25/2020 03:05:00 PM [facility] Name Value Range Interpretation Code Description Data Daniela rce(s) Supporting Document(s) ESTIMATED GFR (CALCULATED) [facility] EGFR 131 [facility] >59 mL/min/1.73m2 EGFR, -BERMUDIAN 152 [facility] >59 mL/min/1.92g8Rfsr: Persistent reduction for 3 months or more in an eGFR <60 mL/min/1.73m2 defines CKD. Patients with eGFR values >=60 mL/min/1.73m2 may also have CKD if evidence of persistent proteinuria is present. Additional information may be found at [email or web address].org/professionals/kdoqi. R [facility], Dept of Path [address] [place], [place] [address] * ID Date Data Source [id number] 03/25/2020 03:05:00 PM [facility] Name Value Range Interpretation Code Description Data Daniela rce(s) Supporting Document(s) GLUCOSE 83 mg/dl 70-100 [facility] BUN 5 mg/dl 4-18 [facility] CREATININE, SERUM 0.49 mg/dl 0.50-1.10 L [facility] SODIUM 135 mmol/l 136-146 L [facility] laura POTASSIUM 4.5 mmol/l 3.5-5.3 [facility] CHLORIDE 97 mmol/l 96-109 [facility] CARBON DIOXIDE 29 mmol/l 20-32 [facility]ital ALBUMIN 3.5 g/dl 3.5-5.0 [facility] PROTEIN, TOTAL 7.9 g/dl 6.4-8.2 [facility] ospital CALCIUM 9.3 mg/dl 8.4-10.4 [facility] ALKALINE PHOSPHATASE 113 U/l 10-118 [facility] SGOT (AST) 17 U/l 3-40 [facility] SGPT (ALT) 12 U/l 7-50 [facility] BILIRUBIN, TOTAL 0.14 mg/dl 0.30-1.20 L [facility] BUN/CREATININE RATIO 10.2 6.0-20.0 [facility] GLOBULIN 4.4 g/dl 2.3-3.5 H [facility] ANION GAP 9.0 mmol/l 7.0-16.0 [facility] OSMOLALITY (CALCULATED) 266 mos/kg 280-300 L [facility] A/G RATIO 0.8 1.0-2.0 L [facility] R [facility], [place] [address] * ID Date Data Source [id number] 03/25/2020 02:50:00 PM EST [facility] Name Value Range Interpretation Code Description Data Daniela rce(s) Supporting Document(s) WBC 11.3 x10E3/uL 4.3-10.9 H [facility] spital RBC 5.15 x10E6/uL 3.80-5.30 [facility] HEMOGLOBIN 13.9 g/dl 11.8-15.8 [facility] HEMATOCRIT 43.5 % 35.0-47.0 [facility] MCV 84.5 fl 82.0-98.0 [facility] MCH 27.0 pg 27.5-33.5 L [facility] MCHC 32.0 g/dl 32.0-36.0 [facility] RDW 14.0 % 11.5-14.5 [facility] PLATELET COUNT 443 x10E3/uL 130-400 H [facility] MPV 10.7 fl 8.6-12.6 [facility] al SEGMENTED NEUTROPHILS 65.8 % 44.0-74.0 [facility] LYMPHOCYTES 20.8 % 15.0-45.0 [facility] ital MONOCYTES 5.8 % 2.0-13.0 [facility] al EOSINOPHILS 7.2 % 0.0-6.0 H [facility] ital BASOPHILS 0.4 % 0.0-2.0 [facility] NEUTROPHIL ABSOLUTE 7.4 x10E3/uL 1.4-7.0 H [facility] LYMPHOCYTES ABSOLUTE 2.4 x10E3/uL 1.0-3.4 [facility] MONOCYTE ABSOLUTE 0.7 x10E3/uL 0.2-1.0 [facility] EOSINOPHIL ABSOLUTE 0.8 x10E3/uL 0.0-0.5 H [facility] BASOPHIL ABSOLUTE 0.0 x10E3/uL 0.0-0.2 [facility] R [facility], [place] [address] * ID Date Data Source [id number] 03/24/2020 12:00:00 AM EST [facility] Name Value Range Interpretation Code Description Data Daniela rce(s) Supporting Document(s) SARS-CoV-2 (COVID-19) RNA [Presence] in Respiratory specimen by JASIEL with probe detection Not Detected [facility] This lab was ordered by [facility] and reported by [facility]. ID Date Data Source [id number] 01/12/2020 05:00:00 AM EST [facility] ([facility] [employer]) Name Value Range Interpretation Code Description Data Daniela rce(s) Supporting Document(s) HEPATITIS C ANTIBODY Reactive [facility] ([facility]) SIGNAL TO CUT-OFF 23.4 ratio [facility] HCV RNA, QUANTITATIVE REAL TIME <15 [facility] ([facility]) HCV RNA, QUANTITATIVE REAL TI <1.18 [facility] ([facility]) Glucose [Mass/volume] in Urine collected for unspecified duratio n 86.0 mg/dL [facility] ([facility]) UREA NITROGEN (BUN) 15.0 mg/dL [facility] ([facility]) Creatinine [Interpretation] in Urine 0.64 mg/dL [facility] ([facility]) eGFR NON-AFR. BERMUDIAN 120.0 mL/min/1.73m2 [facility] ([facility]) eGFR ONUR 139.0 mL/min/1.73m2 [facility] ([facility]) BUN/CREATININE RATIO NOT APPLICABLE [facility] ([facility]) Sodium [Moles/volume] in Serum, Plasma or Blood 136.0 mmol/L [facility] ([facility]) Potassium [Mass/volume] in Blood 5.6 mmol/L [facility] ([facility]) Chloride [Moles/volume] in Serum, Plasma or Blood 96.0 mmol/L [facility] ([facility]) Carbon dioxide [VFr/PPres] in Gas delivery system 31.0 mmol/L [facility] ([facility]) Calcium [Moles/volume] in Urine collected for unspecified durati on 9.8 mg/dL [facility] ([facility]) PROTEIN, TOTAL 7.9 g/dL [facility] ([facility]) Microalbumin [Mass/time] in Urine collected for unspecified dura tion 4.2 g/dL [facility]) Globulin [Mass/time] in 24 hour Urine 3.7 g/dL (calc) [facility] ([facility]) ALBUMIN/GLOBULIN RATIO 1.1 (calc) NETSID RT ([facility]) BILIRUBIN, TOTAL 0.2 mg/dL [facility] ([facility]) Alkaline phosphatase [Enzymatic activity/volume] in Se rum, Plasma or Blood 95.0 U/L [facility] ([facility]) AST 18.0 U/L [facility] ([facility]) Color of Peritoneal dialysis fluid YELLOW [facility] ([facility]) ALT 12.0 U/L [facility]) Appearance of Abdomen CLOUDY [facility] ([facility]) Specific gravity of Pericardial fluid by Refractometry 1.017 [facility] ([facility]) pH of Lower respiratory specimen 7.5 [facility] ([facility]) Glucose [Mass/volume] in Urine collected for unspecified duration N EGATIVE [facility] ([facility]) Bilirubin [Presence] in Peritoneal fluid NEGATIVE [facility] ([facility]) Ketones [Presence] in Blood by Tablet NEGATIVE [facility] ([facility]) OCCULT BLOOD NEGATIVE [facility] ([facility]) Protein [Mass/volume] in Lower respiratory specimen NEGATIVE [facility] ([facility]) Nitrite [Presence] in Urine by Test strip NEGATIVE [facility] ([facility]) Leukocyte esterase [Presence] in Body fluid by Automated test strip 3 + [facility] ([facility]) RBC 0-2 [facility] ([facility] ) WBC 0-5 [facility] ([facility] ) SQUAMOUS EPITHELIAL CELLS 10-20 [facility] ([facility]) TRANSITIONAL EPITHELIAL CELLS DNR [facility] ([facility]) RENAL EPITHELIAL CELLS DNR NETSMAR T ([facility]) Bacteria [Presence] in Prostatic fluid by Light microscopy NONE SEEN [facility] ([facility]) Calcium oxalate crystals [Presence] in Urine sediment by Light m icroscopy DNR [facility] ([facility]) Triple phosphate crystals [Presence] in Urine sediment by Li ght microscopy DNR [facility] ([facility]) URIC ACID CRYSTALS DNR [facility] ([facility]) Amorphous sediment [Presence] in Urine sediment by Light microscopy D NR [facility] ([facility]) Crystals [#/area] in Body fluid by Light microscopy DNR [facility] ([facility]) HYALINE CAST NONE SEEN [facility] ([facility]) GRANULAR CAST DNR [facility] ([facility]) Casts [#/area] in Urine sediment by Automated count DNR [facility] ([facility]) Yeast [#/area] in Urine by Automated count DNR [facility] ([facility]) COMMENTS DNR [facility] ([facility]) Structure of plantar digital artery (body structure) 7.4 Thousand/uL [facility] ([facility]) Nurse Note DNR [facility] ([employer]) RED BLOOD CELL COUNT 4.59 Million/uL [facility] SM[facility] ([facility]) Hemoglobin [Mass/volume] in Mixed venous blood by Oximetry 12.7 g/dL [facility] ([facility]) Hematocrit [Pure volume fraction] of Blood by Automated count 38.8 % [facility] ([facility]) MCV 84.5 fL [facility] ([facility] ) MCH 27.7 pg [facility] MCHC 32.7 g/dL NETSMART ([facility]) PLATELET COUNT 542.0 Thousand/uL NETSMAR T ([facility]) RDW 12.8 % [facility]SMART [facility] MPV 10.9 fL NETSMART ([facility]) ABSOLUTE NEUTROPHILS 3678.0 cells/uL NET SMART ([facility]) ABSOLUTE BAND NEUTROPHILS DNR NETS MART ([facility]) ABSOLUTE METAMYELOCYTES DNR NETSMA RT ([facility]) ABSOLUTE MYELOCYTES DNR NETSMART ( [facility]) ABSOLUTE PROMYELOCYTES DNR NETSMAR T ([facility]) ABSOLUTE MONOCYTES 577.0 cells/uL NETSMA RT ([facility]) ABSOLUTE LYMPHOCYTES 2716.0 cells/uL NET SMART ([facility]) ABSOLUTE EOSINOPHILS 370.0 cells/uL NETS MART ([facility]) ABSOLUTE BASOPHILS 59.0 cells/uL NETSMAR T ([facility]) ABSOLUTE NUCLEATED RBC DNR NETSMAR T ([facility]) ABSOLUTE BLASTS DNR [facility]SMART ([facility]) Neutrophils [#] in Body fluid by Manual count 49.7 % NETSMART ([facility]) BAND NEUTROPHILS DNR [facility] ([facility]) Metamyelocytes [#] in Body fluid by Manual count DNR NETSMART ([facility]) Myelocytes [#] in Body fluid by Manual count DNR NETSMART ([facility]) Lymphocytes [#] in Body fluid by Manual count 36.7 % NETSMART ([facility]) Promyelocytes [#] in Body fluid by Manual count DNR NETSMART ([facility]) REACTIVE LYMPHOCYTES DNR NETSMART ([facility]) Monocytes [#/volume] in Cord blood 7.8 % NETSMART ([facility]) Eosinophils [#] in Body fluid by Manual count 5.0 % NETSMART ([facility]) Basophils [#] in Body fluid by Manual count 0.8 % NETSMART ([facility]) NUCLEATED RBC DNR NETSMART ([facility]) Blasts [#] in Body fluid by Manual count DNR NETSMART ([facility]) COMMENT(S) DNR [facility] ([facility]) NIL 0.03 IU/mL NETSMART ([facility]) QUANTIFERON(R)-TB GOLD PLUS, 1 TUBE NEGATIVE NETSMART ([facility]) MITOGEN-NIL >10.00 [facility]SMART ([facility]) TB1-NIL 0.0 IU/mL NETSMART ([facility]) Enhanced PDF Report [id number] NETSMART ([facility]) TB2-NIL 0.0 IU/mL NETSMART ([facility]) ID Date Data Source [id number] 01/12/2020 05:00:00 AM EST NETSMART ([facility]) Name Value Range Interpretation Code Description Data Daniela rce(s) Supporting Document(s) Glucose [Mass/volume] in Serum or Plasma 86.0 mg/dL NETSMART ([facility]) Urea nitrogen [Mass/volume] in Serum or Plasma 15.0 mg/dL NETSMART ([facility]) Creatinine [Mass/volume] in Serum or Plasma 0.64 mg/dL NETSMART ([facility]) Glomerular filtration rate/1.73 sq M.pre dicted [Volume Rate/Area] in Serum, Plasma or Blood by Creatinine-based formula (MDRD) 120.0 mL/min/1.73m2 NETSMART ([facility]) Glomerular filtration rate/1.73 sq M pre dicted among blacks [Volume Rate/Area] in Serum or Plasma by Creatinine-based formula (MDRD) 139.0 mL/min/1.73m2 NETSMART ([facility]) Urea nitrogen/Creatinine [Mass Ratio] in Serum or Plasma NOT APPLICAB LE NETSMART ([facility]) Sodium [Moles/volume] in Serum or Plasma 136.0 mmol/L NETSMART ([facility]) Potassium [Moles/volume] in Serum or Plasma 5.6 mmol/L NETSMART ([facility]) Chloride [Moles/volume] in Serum or Plasma 96.0 mmol/L NETSMART ([facility]) Carbon dioxide, total [Moles/volume] in Serum or Plasma 31.0 mmol/L NETSMART ([facility]) Calcium [Mass/volume] in Serum or Plasma 9.8 mg/dL NETSMART ([facility]) Protein [Mass/volume] in Serum or Plasma 7.9 g/dL NETSMART ([facility]) Albumin [Mass/volume] in Serum or Plasma 4.2 g/dL NETSMART ([facility]) Globulin [Mass/volume] in Serum by calculation 3.7 g/dL (calc) NETSMART ([facility]) Albumin/Globulin [Mass Ratio] in Serum or Plasma 1.1 (calc) NETSMART ([facility]) Bilirubin.total [Mass/volume] in Serum or Plasma 0.2 mg/dL [facility]SMART ([facility]) Alkaline phosphatase [Enzymatic activity/volume] in Serum or Jhonathan sma 95.0 U/L NETSMART ([facility]) Aspartate aminotransferase [Enzymatic activity/volume] in Serum or Plasma 18.0 U/L NETSMART ([facility] [employer] [employer] [facility]) Alanine aminotransferase [Enzymatic activity/volume] i n Serum or Plasma 12.0 U/L NETSMART ([facility]) Hepatitis C virus Ab [Presence] in Serum or Plasma by Immunoassay R eactive NETSMART ([facility] [employer]) Hepatitis C virus Ab Signal/Cutoff in Serum or Plasma by Imm unoassay 23.4 ratio NETSMART ([facility] [employer] [facility]) Hepatitis C virus RNA [Units/volume] (vi ral load) in Serum or Plasma by Probe and target amplification method <15 NETS MART ([facility]) Hepatitis C virus RNA [log units/volume] (viral load) in Serum or Plasma by Probe and target amplification method <1.18 NETSMART ([facility]) Color of Urine YELLOW NETSMART ([facility]) Appearance of Urine CLOUDY NETSMART ( [facility]) Specific gravity of Urine by Test strip 1.017 NETSMART ([facility]) pH of Urine by Test strip 7.5 NETS MART ([facility]) Glucose [Presence] in Urine by Test strip NEGATIVE NETSMART ([facility]) Bilirubin.total [Presence] in Urine by Test strip NEGATIVE NETSMART ([facility]) Ketones [Presence] in Urine by Test strip NEGATIVE NETSMART ([facility]) Hemoglobin [Presence] in Urine by Test strip NEGATIVE NETSMART ([facility]) Protein [Presence] in Urine by Test strip NEGATIVE NETSMART ([facility]) Nitrite [Presence] in Urine by Test strip NEGATIVE NETSMART ([facility]) Leukocyte esterase [Presence] in Urine by Test strip 3+ NETSMART ([facility]) Leukocytes [#/area] in Urine sediment by Microscopy high power field 0-5 NETSMART ([facility]) Erythrocytes [#/area] in Urine sediment by Microscopy high power fi eld 0-2 NETSMART ([facility]) Epithelial cells.squamous [#/area] in Ur ine sediment by Microscopy high power field 10-20 NETSMART ([facility]) Transitional cells [#/area] in Urine sediment by Micro scopy high power field DNR NETSMART ([facility]) Epithelial cells.renal [#/area] in Urine sediment by Microscopy high power field DNR NETSMART ([facility]) Bacteria [#/area] in Urine sediment by Microscopy high power fie ld NONE SEEN NETSMART ([facility]) Calcium oxalate crystals [#/area] in Uri ne sediment by Microscopy high power field DNR NETSMART ([facility]) Triple phosphate crystals [#/area] in Ur ine sediment by Microscopy high power field DNR NETSMART ([facility]) Urate crystals [#/area] in Urine sediment by Microscopy high pow er field DNR NETSMART ([facility]) Amorphous sediment [Presence] in Urine sediment by Light microscopy D NR NETSMART ([facility]) Hyaline casts [#/area] in Urine sediment by Microscopy low power field NONE SEEN NETSMART ([facility]) Crystals [#/area] in Urine sediment by Microscopy high power field DN R NETSMART ([facility]) Granular casts [#/area] in Urine sediment by Microscopy low power f ield DNR NETSMART ([facility]) Casts [#/area] in Urine sediment by Microscopy low power field DNR NETSMART ([facility]) Yeast [#/area] in Urine sediment by Microscopy high power field DNR NETSMART ([facility]) Service comment DNR NETSMART ([facility]) Leukocytes [#/volume] in Blood by Automated count 7.4 Thousand/uL NETSMART ([facility]) Erythrocytes [#/volume] in Blood by Automated count 4.59 Million/uL NETSMART ([facility]) Hemoglobin [Mass/volume] in Blood 12.7 g/dL NETSMART ([facility]) Hematocrit [Volume Fraction] of Blood by Automated count 38.8 % NETSMART ([facility]) Erythrocyte mean corpuscular volume [Entitic volume] by Auto mated count 84.5 fL NETSMART ([facility]) Erythrocyte mean corpuscular hemoglobin [Entitic mass] by Automated count 27.7 pg NETSMART ([facility]) Erythrocyte mean corpuscular hemoglobin concentration [Mass/volume] by Automated count 32.7 g/dL NETSMART ([facility]) Erythrocyte distribution width [Ratio] by Automated count 12.8 % NETSMART ([facility]) Platelets [#/volume] in Blood by Automated count 542.0 Thousand/uL NETSMART ([facility]) Platelet mean volume [Entitic volume] in Blood by [place]on 10.9 fL NETSMART ([facility]) Neutrophils [#/volume] in Blood by Automated count 3678.0 cells/uL NETSMART ([facility]) Band form neutrophils [#/volume] in Blood DNR NETSMART ([facility]) Metamyelocytes [#/volume] in Blood DNR NETSMART ([facility]) Myelocytes [#/volume] in Blood DNR NETSMART ([facility]) Promyelocytes [#/volume] in Blood DNR NETSMART ([facility]) Lymphocytes [#/volume] in Blood by Automated count 2716.0 cells/uL NETSMART ([facility]) Monocytes [#/volume] in Blood by Automated count 577.0 cells/uL NETSMART ([facility]) Eosinophils [#/volume] in Blood by Automated count 370.0 cells/uL NETSMART ([facility]) Basophils [#/volume] in Blood by Automated count 59.0 cells/uL NETSMART ([facility]) Blasts [#/volume] in Blood DNR NET SMART ([facility]) Nucleated erythrocytes [#/volume] in Blood DNR NETSMART ([facility]) Neutrophils/100 leukocytes in Blood by Automated count 49.7 % NETSMART ([facility]) Band form neutrophils/100 leukocytes in Blood by Manual count DNR NETSMART ([facility]) Metamyelocytes/100 leukocytes in Blood by Manual count DNR NETSMART ([facility]) Myelocytes/100 leukocytes in Blood by Manual count DNR NETSMART ([facility]) Promyelocytes/100 leukocytes in Blood by Manual count DNR NETSMART ([facility]) Lymphocytes/100 leukocytes in Blood by Automated count 36.7 % NETSMART ([facility]) Variant lymphocytes/100 leukocytes in Blood DNR NETSMART ([facility]) Monocytes/100 leukocytes in Blood by Automated count 7.8 % NETSMART ([facility]) Eosinophils/100 leukocytes in Blood by Automated count 5.0 % NETSMART ([facility]) Basophils/100 leukocytes in Blood by Automated count 0.8 % NETSMART ([facility]) Blasts/100 leukocytes in Blood by Manual count DNR NETSMART ([facility]) Nucleated erythrocytes/100 leukocytes [Ratio] in Blood DNR NETSMART ([facility]) Service comment DNR NETSMART ([facility]) Mycobacterium tuberculosis stimulated gamma interferon [Presence] in Blood NEGATIVE NETSMART ([facility]) Gamma interferon background [Units/volume] in Blood by Immunoass ay 0.03 IU/mL NETSMART ([facility]) Mitogen stimulated gamma interferon [Uni ts/volume] corrected for background in Blood >10.00 NETSMART ([facility]) Mycobacterium tuberculosis stimulated ga mma interferon [Units/volume] corrected for background in Blood 0.0 IU/mL NETSMART ([facility]) M TB IFN-g CD4+CD8+ bckgrnd cor Bld-aCnc 0.0 IU/mL NETSMART ([facility]) ID Date Data Source [id number] 01/12/2020 05:00:00 AM EST NETSMART ([facility]) Name Value Range Interpretation Code Description Data Daniela rce(s) Supporting Document(s) Creatinine [Interpretation] in Urine 63.9NORMALNORMAL NETSMART ([facility]) pH of Lower respiratory specimen 8.3NORMALNORMAL NETSMART ([facility]) Oxidants [Presence] in Urine -22.00NegativeNegative NETSMART ([facility]) Validity Result VALIDVALIDVALID NETSMART ([facility]) Cannabinoids [Presence] in Unknown substance by Confir matory method -12.20NegativeNegative NETSMART ([facility]) Ecstasy (MDMA) -4.00NegativeNegative NETSMART ([facility]) Cocaine Metabolites -3.00NegativeNegative NETSMART ([facility]) Ethyl Alcohol 1.00NegativeNegative NETSMART ([facility]) Ethyl glucuronide [Mass/volume] in Urine by Confirmato ry method 67.00NegativeNegative NETSMART ( [facility]) Heroin (6-AM) -1.80NegativeNegative NETSMART ([facility]) Phencyclidine [Presence] in Unknown substance by Confi rmatory method -3.60NegativeNegative NETSMART ( [facility]) Amphetamines [Presence] in Stool 114.00NegativeNegative NETSMART ([facility]) Buprenorphine [Presence] in Blood by Screen method 110 .90PRESUMPTIVE POSITIVEPRESUMPTIVE POSITIVE NETSMA RT ([facility]) Opiates [Presence] in Unknown substance by Confirmator y method -2.00NegativeNegative NETSMART ( [facility]) Synthetic Opiates -17.00NegativeNegative NETSMART ([facility]) Tramadol [Presence] in Blood by Screen method 9.00NegativeNeg ative NETSMART ([facility]) Norbuprenorphine [Mass/mass] in Meconium by Confirmato ry method 134.410Positive - InconsistentPOSITIVE NETSMART ([facility]) Buprenorphine [Presence] in Blood by Screen method 184 .640Positive - InconsistentPOSITIVE NETSMART ([facility]) Naloxone [Mass/volume] in Urine by Confirmatory method 791.920Positive - InconsistentPOSITIVE NETSMART ([facility]) EDDP 7.700Negative - InconsistentNegative NETSMART ([facility]) Methadone [Mass/volume] in Blood 9.140Negative - Inconsis tentNegative NETSMART ([facility]) Norfentanyl [Mass/volume] in Serum, Plasma or Blood by Confirmatory method 0.580NegativeNegative NETSMART ( [facility]) Fentanyl [Z-score] in Urine 0.130NegativeNegative NETSMART ([facility]) Carfentanil 0.110NegativeNegative NETSMART ([facility]) Norcarfentanil 0.080NegativeNegative NETSMART ([facility]) Sufentanil [Mass/volume] in Urine 0.170NegativeNegative NETSMART ([facility]) Temazepam [Moles/volume] in Unspecified specimen 7.080Neg ativeNegative NETSMART ([facility]) Lorazepam [Moles/volume] in Unspecified specimen 8.990Neg ativeNegative NETSMART ([facility]) alpha-Hydroxyalprazolam 1.820NegativeNegative NETSMART ([facility]) 7-Aminoclonazepam [Mass/mass] in Hair 4.800NegativeNegative NETSMART ([facility]) Oxazepam [Moles/volume] in Unspecified specimen 12.790Neg ativeNegative NETSMART ([facility]) Nordiazepam [Moles/volume] in Unspecified specimen 8.260NegativeNegative NETSMART ( [facility]) Pregabalin [Presence] in Urine by Screen method 6.810Nega tiveNegative NETSMART ([facility]) Gabapentin [Mass/volume] in Urine by Confirmatory meth od 9.710NegativeNegative NETSMART ( [facility]) ID Date Data Source [id number] 01/17/2020 08:29:00 PM EST [facility] Received: 01/13/2020 at 03:53:00 QVE : [facility] , [address] , [place], [address], Alejandro Toledo MD Received: 01/13/2020 at 03:53:00 AMD : [facility], [address], [place], [place], , Rohit Bunch M.D.,PhD Received: 01/13/2020 at 03:53:00 AMD : Sherrie Jones/[facility], [address], [place], [place], , Rohit Bunch M.D.,PhD Received: 01/13/2020 at 03:53:00 QVE : [facility] , [address], [place], [address], Alejandro Toledo MD Received: 01/13/2020 at 03:53:00 QVE : [employer], [facility] , [address], [place], [address], Alejandro Toledo MD Received: 01/13/2020 at 03:53:00 QVE : [facility] , [address], [place], [address], Alejandro Toledo MD Name Value Range Interpretation Code Description Data Daniela rce(s) Supporting Document(s) Glucose [Mass/volume] in Serum or Plasma 86 mg/dL 65-99 Normal (applies to non- numeric results) [facility] Fasting reference interval Urea nitrogen [Mass/volume] in Serum or Plasma 15 mg/dL 7 -25 Normal (applies to non-numeric results) [facility] Creatinine [Mass/volume] in Serum or Plasma 0.64 mg/dL 0.50 -1.10 Normal (applies to non-numeric results) [facility] Glomerular filtration rate/1.73 sq M.pre dicted [Volume Rate/Area] in Serum, Plasma or Blood by Creatinine-based formula (MDRD) 120 mL/min/1.73m2 > OR = 60 Normal (applies to non-numeric results) [facility] Glomerular filtration rate/1.73 sq M pre dicted among blacks [Volume Rate/Area] in Serum or Plasma by Creatinine-based formula (MDRD) 139 mL/min/1.73m2 > OR = 60 Normal (applies to non-numeric results) [facility] Urea nitrogen/Creatinine [Mass Ratio] in Serum or Plasma NOT APPLICABLE (calc) 6-22 [facility] Sodium [Moles/volume] in Serum or Plasma 136 mmol/L 135-146 Normal (applies to non-numeric results) [facility] Potassium [Moles/volume] in Serum or Plasma 5.6 mmol/L 3.5- 5.3 Above high normal [facility] Chloride [Moles/volume] in Serum or Plasma 96 mmol/L 98-110 Belo w low normal [facility] Carbon dioxide, total [Moles/volume] in Serum or Plasma 31 mmol/ L 20-32 Normal (applies to non-numeric results) [facility] Calcium [Mass/volume] in Serum or Plasma 9.8 mg/dL 8.6-10. 2 Normal (applies to non-numeric results) [facility] Protein [Mass/volume] in Serum or Plasma 7.9 g/dL 6.1-8.1 Normal (applies to non-numeric results) [facility] Albumin [Mass/volume] in Serum or Plasma 4.2 g/dL 3.6-5.1 Normal (applies to non-numeric results) [facility] Globulin [Mass/volume] in Serum by calculation 3.7 g/dL (calc) 1 .9-3.7 Normal (applies to non-numeric results) [facility] Albumin/Globulin [Mass Ratio] in Serum or Plasma 1.1 (calc) 1.0-2.5 Normal (applies to non-numeric results) [facility] Bilirubin.total [Mass/volume] in Serum or Plasma 0.2 mg/dL 0.2-1.2 Normal (applies to non-numeric results) [facility] Alkaline phosphatase [Enzymatic activity/volume] in Serum or Plasma 95 U/L 31-125 Normal (applies to non-numeric results) [facility] Aspartate aminotransferase [Enzymatic activity/volume] in Serum or Plasma 18 U/L 10-30 Normal (applies to non-numeric results) [facility] Alanine aminotransferase [Enzymatic activity/volume] in Seru m or Plasma 12 U/L 6-29 Normal (applies to non-numeric results) [facility] ID Date Data Source [id number] 01/17/2020 08:29:00 PM EST [facility] Received: 01/13/2020 at 03:53:00 QVE : [facility] , [address], [facility] [place], [address], Alejandro Toledo MD Received: 01/13/2020 at 03:53:00 AMD : [facility], [address], [place], [place], , Rohit Bunch M.D.,PhD Received: 01/13/2020 at 03:53:00 AMD : [facility], [address], [place], [place], , Rohit Bunch M.D.,PhD Received: 01/13/2020 at 03:53:00 QVE : [facility] , [facility] [address], [place], [address], Alejandro Toledo MD Received: 01/13/2020 at 03:53:00 QVE : [facility] , [place], [address], Alejandro Toledo MD Received: 01/13/2020 at 03:53:00 QVE :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 AM EDT [facility] [address] [place], [place] [id number] r [facility], [facility] OF [address] [address] Site: RPERP Collected: 11/13/19 02:40BLOOD CULTURE #1 FINAL 11/18/19 07:45 R011/18/19 No growth after 5 days. Name Value Range Interpretation Code Description Data Daniela rce(s) Supporting Document(s) ID Date Data Source [id number] 11/13/2019 06:10:00 AM EDT [facility] Name Value Range Interpretation Code Description Data Daniela rce(s) Supporting Document(s) ETHANOL (BLOOD) 0.003 % 0.000-0.010 [facility] This test result should only be used for MEDICAL or THERAPEUTIC purposes. R [facility], Dept of Path [address] [place] [address] * ID Date Data Source [id number] 11/13/2019 03:12:00 AM EDT [facility] Name Value Range Interpretation Code Description Data Daniela rce(s) Supporting Document(s) LACTIC ACID 1.5 mmol/L 0.5-2.2 [facility] pital R [facility], [facility] [place] h [address] [place] [address] * ID Date Data Source [id number] 11/13/2019 03:10:00 AM EDT [facility] Name Value Range Interpretation Code Description Data Daniela rce(s) Supporting Document(s) TROPONIN I <0.300 ng/ml [facility] spital Negative: < 0.300 Positive: >=0.300Results obtained using Robert methodology. Please note thatserial determinations should be monitored using the same methodology. R [facility], Dept of Path [address] [place] [id number] * ID Date Data Source [id number] 11/13/2019 03:10:00 AM EDT [facility] Name Value Range Interpretation Code Description Data Daniela rce(s) Supporting Document(s) ESTIMATED GFR (CALCULATED) [facility] EGFR 117 [facility] al >59 mL/min/1.73m2 EGFR, -BERMUDIAN 135 [facility] >59 mL/min/1.39m4Vrwt: Persistent reduction for 3 months or more in an eGFR <60 mL/min/1.73m2 defines CKD. Patients with eGFR values >=60 mL/min/1.73m2 may also have CKD if evidence of persistent proteinuria is present. Additional information may be found at [email or web address]. R [facility], Dept of Path [address] [place] [address], [place] [address] * ID Date Data Source [id number] 11/13/2019 03:10:00 AM EDT [facility] Name Value Range Interpretation Code Description Data Daniela rce(s) Supporting Document(s) GLUCOSE 114 mg/dl 70-100 H [facility] BUN 7 mg/dl 4-18 [facility] CREATININE, SERUM 0.69 mg/dl 0.50-1.10 [facility] SODIUM 137 mmol/l 136-146 [facility] laura POTASSIUM 3.2 mmol/l 3.5-5.3 L [facility] CHLORIDE 98 mmol/l 96-109 [facility] CARBON DIOXIDE 27 mmol/l 20-32 [facility] ospital ALBUMIN 3.6 g/dl 3.5-5.0 [facility] PROTEIN, TOTAL 6.9 g/dl 6.4-8.2 [facility] ospital CALCIUM 8.7 mg/dl 8.4-10.4 [facility] ALKALINE PHOSPHATASE 85 U/l 10-118 [facility] SGOT (AST) 34 U/l 3-40 [facility] SGPT (ALT) 19 U/l 7-50 [facility] BILIRUBIN, TOTAL 0.22 mg/dl 0.30-1.20 L [facility] BILIRUBIN, DIRECT 0.06 mg/dl 0.00-0.40 [facility] BILIRUBIN, INDIRECT 0.16 mg/dl 0.10-1.10 [facility] BUN/CREATININE RATIO 10.1 6.0-20.0 [facility] GLOBULIN 3.3 g/dl 2.3-3.5 [facility] ANION GAP 12.0 mmol/l 7.0-16.0 [facility] OSMOLALITY (CALCULATED) 273 mos/kg 280-300 L [facility] A/G RATIO 1.1 1.0-2.0 [facility] al R [facility], Dept of [facility] h [address] [place] [address] * ID Date Data Source [id number] 11/13/2019 03:02:00 AM EDT [facility] Name Value Range Interpretation Code Description Data Daniela rce(s) Supporting Document(s) PTT 42.6 seconds 23.7-35.5 H [facility] pital R [facility], Dept of [facility] h [address] [place] [address] * ID Date Data Source [id number] 11/13/2019 03:02:00 AM EDT [facility] Name Value Range Interpretation Code Description Data Daniela rce(s) Supporting Document(s) PT (NO THERAPY/UNKNOWN) 13.3 seconds 11.7-14.5 Rom [facility] INR 1.1 [facility] IN TERNATIONAL NORMALIZED RATIO(INR) INDICATIONS INR RANGE PATIENTS NOT ON ANTICOAGULANT THERAPY * DEEP VENOUS THROMBOSIS 2.0-3.0 PULMONARY EMBOLISM 2.0-3.0 ATRIAL FIBRILLATION 2.0-3.0 PROPHYLAXIS: 2.0-3.0 HIGH-RISK SURGERY TISSUE HEART VALVES ATRIAL FIBRILLATION ACUTE MYOCARDIAL INFARCTION VALVULAR HEART DISEASE MECHANICAL PROSTHETIC VALVE 2.5-3.5* USE OF INR VALUES SHOULD BE LIMITED TO PATIENTS WHO ARE ON STABLE ORAL ANTICOAGULANT THERAPY. AN INR ABOVE 5.0-5.5 APPEARS TO BE ASSOCIATED WITH AN UNACCEPTABLY HIGH RISK OF BLEEDING. R [facility], Dept of Path [address] [place] [address] * ID Date Data Source [id number] 11/13/2019 02:56:00 AM EDT [facility] Name Value Range Interpretation Code Description Data Daniela rce(s) Supporting Document(s) WBC 8.8 x10E3/uL 4.3-10.9 [facility] pital RBC 4.12 x10E6/uL 3.80-5.30 [facility] spital HEMOGLOBIN 11.6 g/dl 11.8-15.8 L [facility] laura HEMATOCRIT 36.3 % 35.0-47.0 [facility] MCV 88.1 fl 82.0-98.0 [facility] al MCH 28.2 pg 27.5-33.5 [facility] MCHC 32.0 g/dl 32.0-36.0 [facility] RDW 14.6 % 11.5-14.5 H [facility] PLATELET COUNT 335 x10E3/uL 130-400 [facility] MPV 9.8 fl 8.6-12.6 [facility] SEGMENTED NEUTROPHILS 66.4 % 44.0-74.0 [facility] LYMPHOCYTES 23.0 % 15.0-45.0 [facility] ital MONOCYTES 5.8 % 2.0-13.0 [facility] al EOSINOPHILS 4.3 % 0.0-6.0 [facility] ital BASOPHILS 0.5 % 0.0-2.0 [facility] al NEUTROPHIL ABSOLUTE 5.8 x10E3/uL 1.4-7.0 [facility] LYMPHOCYTES ABSOLUTE 2.0 x10E3/uL 1.0-3.4 [facility] MONOCYTE ABSOLUTE 0.5 x10E3/uL 0.2-1.0 [facility] EOSINOPHIL ABSOLUTE 0.4 x10E3/uL 0.0-0.5 [facility] BASOPHIL ABSOLUTE 0.0 x10E3/uL 0.0-0.2 [facility] R [facility], [place] [address] * Procedure Social History Code Duration Value Status Description Data Source(s ) Alcohol intake 08/17/2020 12:00:00 AM EDT Current drinker of al cohol (finding) completed Current drinker of alcohol (finding) [facility] Cigarettes smoked current (pack per day) - Reported 08/18/19 12:00:00 AM EDT UNK completed [facility] ospital Smoking 08/17/2020 12:00:00 AM EDT Current every day smoker co mpleted Current every day smoker [facility] Smoking 01/12/2020 12:00:00 PM EST Smokes tobacco daily (findi ng) completed Current Every Day Smoker [facility] ([employer]) Vital Signs ID Date Data Source UNK Name Value Range Interpretation Code Description Data Source(s) Body temperature 36.4 IRVING 36.4 IRVING [facility] ([facility]) Body temperature 97.5 [DEGF] 97.5 [DEGF] NETSMA RT ([facility]) Heart rate 68.0 /MIN 68.0 /MIN [facility] ([facility]) Systolic blood pressure 130.0 MM[HG] 130.0 MM[H G] [facility] ([facility]) Diastolic blood pressure 62.0 MM[HG] 62.0 MM[HG ] [facility] ([facility]) Pain severity - 0-10 verbal numeric rating [Score] - Reported 0.0 S sasha 0.0 Scale [facility] ([facility]) Respiratory rate 13.0 /MIN 13.0 /MIN [facility] ([facility]) Oxygen saturation in Arterial blood by Pulse oximetry 98.0 % 98.0 % [facility] ([facility]) Body temperature 36.4 IRVING 36.4 IRVING [facility] ([facility]) Heart rate 82.0 /MIN 82.0 /MIN [facility] ([facility]) Respiratory rate 14.0 /MIN 14.0 /MIN [facility] ([facility]) Body temperature 97.5 [DEGF] 97.5 [DEGF] [facility] RT ([facility]) Oxygen saturation in Arterial blood by Pulse oximetry 99.0 % 99.0 % [facility] Systolic blood pressure 116.0 MM[HG] 116.0 MM[H G] [facility] ([facility]) Diastolic blood pressure 65.0 MM[HG] 65.0 MM[HG ] [facility] ([facility]) Pain severity - 0-10 verbal numeric rating [Score] - Reported 0.0 S sasha 0.0 Scale [facility]) Respiratory rate 16.0 /MIN 16.0 /MIN [facility]) Body temperature 97.2 [DEGF] 97.2 [DEGF] [facility] ([facility]) Body temperature 36.2 IRVING 36.2 IRVING [facility] ([facility]) Heart rate 88.0 /MIN 88.0 /MIN [facility]) Oxygen saturation in Arterial blood by Pulse oximetry 99.0 % 99.0 % [facility] ([facility]) Systolic blood pressure 132.0 MM[HG] 132.0 MM[H G] [facility] ([facility]) Diastolic blood pressure 74.0 MM[HG] 74.0 MM[HG ] [facility] ([facility]) Pain severity - 0-10 verbal numeric rating [Score] - Reported 5.0 S sasha 5.0 Scale [facility] ([facility]) Body height 154.9 cm 154.9 cm [facility] ([facility]) Body weight 54.5 KG 54.5 KG [facility] ([facility] [employer] [facility]) Body mass index (BMI) [Ratio] 22.7 22.7 [facility] ([facility]) Pain severity - 0-10 verbal numeric rating [Score] - Reported 0.0 S sasha 0.0 Scale [facility] ([facility]) Body temperature 97.0 [DEGF] 97.0 [DEGF] [facility] RT ([facility]) Systolic blood pressure 104.0 MM[HG] 104.0 MM[H G] [facility] ([facility]) Diastolic blood pressure 40.0 MM[HG] 40.0 MM[HG ] [facility] ([facility]) Body temperature 36.1 IRVING 36.1 IRVING [facility] ([facility]) Heart rate 96.0 /MIN 96.0 /MIN [facility] ([facility]) Respiratory rate 16.0 /MIN 16.0 /MIN [facility] ([facility]) Oxygen saturation in Arterial blood by Pulse oximetry 99.0 % 99.0 % [facility] ([facility]) Heart rate 88.0 /MIN 88.0 /MIN [facility] ([facility]) Pain severity - 0-10 verbal numeric rating [Score] - Reported 6.0 S sasha 6.0 Scale [facility] ([facility]) Oxygen saturation in Arterial blood by Pulse oximetry 96.0 % 96.0 % [facility] ([facility]) Diastolic blood pressure 70.0 MM[HG] 70.0 MM[HG ] [facility] ([facility]) Body temperature 97.7 [DEGF] 97.7 [DEGF] [facility] RT ([facility]) Body temperature 36.5 IRVING 36.5 IRVING [facility] ([facility]) Heart rate 98.0 /MIN 98.0 /MIN [facility] ([facility]) Respiratory rate 16.0 /MIN 16.0 /MIN [facility] ([facility]) Oxygen saturation in Arterial blood by Pulse oximetry 97.0 % 97.0 % [facility] ([facility]) Systolic blood pressure 105.0 MM[HG] 105.0 MM[H G] [facility] ([facility]) Heart rate 100.0 /MIN 100.0 /MIN [facility] ([facility]) Body temperature 36.3 IRVING 36.3 IRVING [facility] ([facility]) Respiratory rate 18.0 /MIN 18.0 /MIN [facility] ([facility]) Systolic blood pressure 111.0 MM[HG] 111.0 MM[H G] [facility] ([facility]) Diastolic blood pressure 76.0 MM[HG] 76.0 MM[HG ] [facility] ([facility]) Body temperature 97.4 [DEGF] 97.4 [DEGF] [facility] ([facility]) Body temperature 36.3 IRVING 36.3 IRVING [facility] ([facility]) Heart rate 78.0 /MIN 78.0 /MIN [facility] ([facility]) Body temperature 97.3 [DEGF] 97.3 [DEGF] [facility] ([facility]) Respiratory rate 17.0 /MIN 17.0 /MIN [facility] ([facility]) Systolic blood pressure 122.0 MM[HG] 122.0 MM[H G] [facility] ([facility]) Diastolic blood pressure 69.0 MM[HG] 69.0 MM[HG ] [facility] ([facility]) Respiratory rate 16.0 /MIN 16.0 /MIN [facility] ([facility]) Systolic blood pressure 130.0 MM[HG] 130.0 MM[H G] [facility] ([facility]) Diastolic blood pressure 70.0 MM[HG] 70.0 MM[HG ] [facility] ([facility]) Body temperature 98.1 [DEGF] 98.1 [DEGF] [facility] RT ([facility]) Body temperature 36.7 IRVING 36.7 IRVING [facility] ([facility]) Heart rate 72.0 /MIN 72.0 /MIN [facility] ([facility]) Pain severity - 0-10 verbal numeric rating [Score] - Reported 0.0 S sasha 0.0 Scale [facility] ([facility]) Heart rate 77.0 /MIN 77.0 /MIN [facility] ([facility]) Respiratory rate 14.0 /MIN 14.0 /MIN [facility] ([facility]) Systolic blood pressure 134.0 MM[HG] 134.0 MM[H G] [facility] ([facility]) Diastolic blood pressure 70.0 MM[HG] 70.0 MM[HG ] [facility] ([facility]) Body temperature 97.7 [DEGF] 97.7 [DEGF] [facility] ([facility]) Body temperature 36.5 IRVING 36.5 IRVING [facility] ([facility]) Respiratory rate 16.0 /MIN 16.0 /MIN [facility] ([facility]) Diastolic blood pressure 90.0 MM[HG] 90.0 MM[HG ] [facility] ([facility]) Heart rate 84.0 /MIN 84.0 /MIN [facility] ([facility]) Systolic blood pressure 107.0 MM[HG] 107.0 MM[H G] [facility] ([facility]) Diastolic blood pressure 86.0 MM[HG] 86.0 MM[HG ] [facility] ([facility]) Systolic blood pressure 123.0 MM[HG] 123.0 MM[H G] [facility] ([facility]) Heart rate 102.0 /MIN 102.0 /MIN [facility] ([facility]) Body temperature 98.1 [DEGF] 98.1 [DEGF] [facility] ([facility]) Body temperature 36.7 IRVING 36.7 IRVING [facility] ([facility]) Respiratory rate 18.0 /MIN 18.0 /MIN [facility] ([facility]) Body temperature 36.7 IRVING 36.7 IRVING [facility] ([facility]) Heart rate 81.0 /MIN 81.0 /MIN [facility] ([facility]) Systolic blood pressure 105.0 MM[HG] 105.0 MM[H G] [facility] ([facility]) Diastolic blood pressure 70.0 MM[HG] 70.0 MM[HG ] [facility] ([facility]) Respiratory rate 16.0 /MIN 16.0 /MIN [facility] ([facility]) Body temperature 98.1 [DEGF] 98.1 [DEGF] [facility] ([facility]) Body temperature 98.0 [DEGF] 98.0 [DEGF] [facility] ([facility]) Body temperature 36.7 IRVING 36.7 IRVING [facility] ([facility]) Body height 154.9 cm 154.9 cm [facility] ([facility]) Heart rate 86.0 /MIN 86.0 /MIN [facility] ([facility]) Respiratory rate 14.0 /MIN 14.0 /MIN [facility] ([facility]) Oxygen saturation in Arterial blood by Pulse oximetry 97.0 % 97.0 % [facility] ([facility] [employer]) Systolic blood pressure 108.0 MM[HG] 108.0 MM[H G] [facility] ([facility] [employer]) Body weight 54.5 KG 54.5 KG [facility] ([facility] [employer]) Body mass index (BMI) [Ratio] 22.7 22.7 [facility] ([facility] [employer]) Diastolic blood pressure 71.0 MM[HG] 71.0 MM[HG ] [facility] ([facility] [employer]) ID Date Data Source [id number] 12/16/2020 02:03:41 PM EDT [facility] Name Value Range Interpretation Code Description Data Source(s) WEIGHT RECORDED 47.1 KG 47.1 KG [facility] Height 157.48 CM 157.48 CM [facility] ID Date Data Source [id number] 08/25/2020 09:49:53 AM [facility] Name Value Range Interpretation Code Description Data Source(s) TRANSFER FROM [facility] ID Date Data Source [id number] 04/20/2020 01:51:16 PM [facility] Name Value Range Interpretation Code Description Data Source(s) WEIGHT RECORDED 45.3 KG 45.3 KG [facility] Height 154.94 CM 154.94 CM [facility] Patient Treatment Plan of Care Planned Activity Planned Date Details Description Data Source (s) Acetaminophen 325 MG Oral Tablet 08/17/2020 12:00:00 AM [facility] Ibuprofen 400 MG Oral Tablet 08/17/2020 12:00:00 AM [facility] albuterol HFA (VENTOLIN HFA) 90 mcg/actuation inhaler 02/24/2019 12:00:00 AM [facility]
[2020-12-28 16:20] LABS: RSV AMPLIFICATION NEGATIVE (NEGATIVE)
[2020-12-28 19:25] LABS: BASO % 0.2 % (0.0-1.0); EOS # 0.3 10^3/uL (0.0-0.5); EOS % 2.6 % (0.0-3.0); HEMATOCRIT 36.1 % (36.0-47.0); HEMOGLOBIN 11.1 g/dl (12.0-15.5); LYMPH # 1.1 10^3/uL (1.5-5.0); LYMPH % 8.2 % (24.0-44.0); MEAN CORPUSCULAR HEMOGLOBIN 27.2 pg (27.0-33.0); MEAN CORPUSCULAR HGB CONC 30.7 g/dl (32.0-36.5); MEAN CORPUSCULAR VOLUME 88.5 fl (80.0-96.0); MONO # 0.2 10^3/uL (0.0-0.8); MONO % 1.2 % (2.0-8.0); NEUTROPHILS # 11.1 10^3/uL (1.5-8.5); NEUTROPHILS % 87.4 % (36.0-66.0); PLATELET COUNT, AUTOMATED 270 10^3/uL (150-450); RED BLOOD COUNT 4.08 10^6/uL (4.00-5.40); WHITE BLOOD COUNT 12.7 10^3/uL (4.0-10.0)
[2020-12-28] MEDS ORDERED: ISOVUE-370 76% 100ML VIAL As Ordered ONE (19:50)
[2020-12-28 19:53] LABS: CK-MB VALUE MASS 1.7 NG/ML (<3.6); CPK CREATINE PHOSPHOKINASE 70 U/L (26-192); MB/CK RELATIVE INDEX 2.43 (< OR =4); TROPONIN I < 0.02 NG/ML (< 0.10)
[2020-12-28 20:45] VITALS: BP 156/98
== END 2020-12-28 20:58 | disposition left against medical advice (07) ==
LOC: M ED 14:08 → EDBD 14:08 → M ED 20:58
DX: R06.02 Shortness of breath (principal); R09.02 Hypoxemia; R91.8 Other nonspecific abnormal finding of lung field; F11.20 Opioid dependence, uncomplicated; Z53.20 Procedure and treatment not carried out because of patient's decision for unspecified reasons; Z88.0 Allergy status to penicillin
CPT/HCPCS: 71045; 80047; 82550; 82553; 84702; 85025; 87631; 87798; 93041; 94760; 96374; 96375; 99285; J1885; J2930

== ENCOUNTER 2021-03-23 11:22 | Emergency (ER) | payer OTHER ==
[~2021-03-23] VITALS: Ht 154.9 cm; Wt 68.2 kg
[~2021-03-23 11:22] MED LIST changes: +CYCL-707 PO
[2021-03-23 11:23] VITALS: BP 125/84
[2021-03-23] MEDS ORDERED: METH10CO PO ×2 (11:37)
[2021-03-23 13:09] LABS: BASO % 0.4 % (0.0-1.0); EOS # 0.6 10^3/uL (0.0-0.5); EOS % 8.5 % (0.0-3.0); HEMATOCRIT 39.4 % (36.0-47.0); HEMOGLOBIN 12.3 g/dl (12.0-15.5); LYMPH # 1.8 10^3/uL (1.5-5.0); LYMPH % 24.9 % (24.0-44.0); MEAN CORPUSCULAR HGB CONC 31.2 g/dl (32.0-36.5); MEAN CORPUSCULAR VOLUME 86.6 fl (80.0-96.0); MONO # 0.3 10^3/uL (0.0-0.8); MONO % 4.3 % (2.0-8.0); NEUTROPHILS # 4.3 10^3/uL (1.5-8.5); NEUTROPHILS % 61.6 % (36.0-66.0); PLATELET COUNT, AUTOMATED 310 10^3/uL (150-450); RED BLOOD COUNT 4.55 10^6/uL (4.00-5.40)
[2021-03-23 13:17] LABS: BLOOD UREA NITROGEN 13 MG/DL (7-18); CALCIUM LEVEL 9.5 MG/DL (8.5-10.1); CARBON DIOXIDE LEVEL 28 MEQ/L (21-32); CHLORIDE LEVEL 107 MEQ/L (98-107); GLOMERULAR FILTRATION RATE > 60.0 (>60); GLUCOSE, FASTING 87 MG/DL (70-100); POTASSIUM SERUM 4.5 MEQ/L (3.5-5.1); SODIUM LEVEL 141 MEQ/L (136-145)
[2021-03-23 13:34] LABS: ERYTHROCYTE SEDIMENTATION RATE 22 mm/hr (0-20)
== END 2021-03-23 14:48 | disposition home or self-care (01) ==
LOC: M ED 11:22
DX: L30.9 Dermatitis, unspecified (principal); Z88.0 Allergy status to penicillin; Z91.040 Latex allergy status; Z91.02 Food additives allergy status

== ENCOUNTER 2021-03-28 10:58 | Emergency (ER) | payer OTHER ==
[~2021-03-28] VITALS: Ht 154.9 cm; Wt 70.0 kg
[~2021-03-28 10:58] MED LIST changes: +METH10CO PO
[2021-03-28] MEDS ORDERED: TOPI25TA10 (11:12)
[2021-03-28 12:17] LABS: BASO % 0.3 % (0.0-1.0); EOS # 0.7 10^3/uL (0.0-0.5); EOS % 10.7 % (0.0-3.0); HEMATOCRIT 36.6 % (36.0-47.0); HEMOGLOBIN 11.7 g/dl (12.0-15.5); LYMPH # 1.7 10^3/uL (1.5-5.0); MEAN CORPUSCULAR HEMOGLOBIN 27.5 pg (27.0-33.0); MEAN CORPUSCULAR VOLUME 85.9 fl (80.0-96.0); MONO # 0.4 10^3/uL (0.0-0.8); MONO % 6.6 % (2.0-8.0); NEUTROPHILS # 3.3 10^3/uL (1.5-8.5); NEUTROPHILS % 54.1 % (36.0-66.0); PLATELET COUNT, AUTOMATED 269 10^3/uL (150-450); RED BLOOD COUNT 4.26 10^6/uL (4.00-5.40); WHITE BLOOD COUNT 6.1 10^3/uL (4.0-10.0)
[2021-03-28 12:37] LABS: ERYTHROCYTE SEDIMENTATION RATE 23 mm/hr (0-20)
[2021-03-28 12:51] LABS: ALBUMIN 3.8 GM/DL (3.2-5.2); ALT/SGPT 22 U/L (12-78); BILIRUBIN,DIRECT < 0.1 MG/DL (0.0-0.2); BILIRUBIN,TOTAL 0.2 MG/DL (0.2-1.0); BLOOD UREA NITROGEN 9 MG/DL (7-18); C REACTIVE PROTEIN QUANTITATIV 0.57 MG/DL (0.00-0.30); CALCIUM LEVEL 9.1 MG/DL (8.5-10.1); CARBON DIOXIDE LEVEL 27 MEQ/L (21-32); CHLORIDE LEVEL 110 MEQ/L (98-107); CREATININE FOR GFR 0.71 MG/DL (0.55-1.30); GLOMERULAR FILTRATION RATE > 60.0 (>60); GLUCOSE, FASTING 101 MG/DL (70-100); POTASSIUM SERUM 4.3 MEQ/L (3.5-5.1); SODIUM LEVEL 140 MEQ/L (136-145); TOTAL PROTEIN 7.6 GM/DL (6.4-8.2)
[2021-03-28] MEDS ORDERED: DOXY-443 PO (13:15)
[2021-03-28 13:34] VITALS: BP 117/74
== END 2021-03-28 13:26 | disposition home or self-care (01) ==
LOC: M ED 10:58
DX: L03.032 Cellulitis of left toe (principal); J45.909 Unspecified asthma, uncomplicated; K21.9 Gastro-esophageal reflux disease without esophagitis; F19.10 Other psychoactive substance abuse, uncomplicated; F43.10 Post-traumatic stress disorder, unspecified; F41.9 Anxiety disorder, unspecified; F32.A Depression, unspecified; Z88.0 Allergy status to penicillin; Z91.040 Latex allergy status; Z91.018 Allergy to other foods; Z79.899 Other long term (current) drug therapy

== ENCOUNTER 2021-04-19 14:02 | Emergency (ER) | payer OTHER ==
[~2021-04-19] VITALS: Ht 154.9 cm; Wt 66.8 kg
[~2021-04-19 14:02] MED LIST changes: +DOXY-443 PO; +TOPI25TA10
[2021-04-19] MEDS ORDERED: BUPR1TAB52 (14:29)
[2021-04-19] MEDS ORDERED: CETI10CH (14:29)
[2021-04-19] MEDS ORDERED: NS 1,000 ML IV ONE (16:05)
[2021-04-19 16:40] VITALS: BP 100/62
[2021-04-19 16:44] LABS: BASO % 0.2 % (0.0-1.0); EOS # 0.3 10^3/uL (0.0-0.5); EOS % 3.3 % (0.0-3.0); HEMATOCRIT 38.9 % (36.0-47.0); HEMOGLOBIN 12.2 g/dl (12.0-15.5); LYMPH # 2.3 10^3/uL (1.5-5.0); LYMPH % 22.5 % (24.0-44.0); MEAN CORPUSCULAR HEMOGLOBIN 27.2 pg (27.0-33.0); MEAN CORPUSCULAR HGB CONC 31.4 g/dl (32.0-36.5); MEAN CORPUSCULAR VOLUME 86.6 fl (80.0-96.0); MONO # 0.6 10^3/uL (0.0-0.8); MONO % 6.2 % (2.0-8.0); NEUTROPHILS % 67.5 % (36.0-66.0); PLATELET COUNT, AUTOMATED 386 10^3/uL (150-450); RED BLOOD COUNT 4.49 10^6/uL (4.00-5.40); WHITE BLOOD COUNT 10.4 10^3/uL (4.0-10.0)
[2021-04-19 17:23] LABS: BLOOD UREA NITROGEN 9 MG/DL (7-18); CALCIUM LEVEL 9.4 MG/DL (8.5-10.1); CARBON DIOXIDE LEVEL 29 MEQ/L (21-32); CHLORIDE LEVEL 108 MEQ/L (98-107); FREE T4 1.01 NG/DL (0.76-1.46); GLOMERULAR FILTRATION RATE > 60.0 (>60); GLUCOSE, FASTING 98 MG/DL (70-100); POTASSIUM SERUM 4.3 MEQ/L (3.5-5.1); SODIUM LEVEL 143 MEQ/L (136-145); THYROID STIMULATING HORMONE 0.929 uIU/ML (0.358-3.740)
[2021-04-19 17:44] LABS: HEMOGLOBIN A1c 5.8 %
[2021-04-19 18:08] LABS: AMPHETAMINES LEVEL URINE NEGATIVE (NEGATIVE); BARBITURATES URINE NEGATIVE (NEGATIVE); BENZODIAZEPINES URINE NEGATIVE (NEGATIVE); CANNABINOIDS URINE NEGATIVE (NEGATIVE); COCAINE METABOLITE URINE NEGATIVE (NEGATIVE); METHADONE URINE POSITIVE (NEGATIVE); OPIATES URINE NEGATIVE (NEGATIVE); PHENCYCLIDINE URINE NEGATIVE (NEGATIVE)
== END 2021-04-19 19:13 | disposition home or self-care (01) ==
LOC: M ED 14:02
DX: R42 Dizziness and giddiness (principal); I95.9 Hypotension, unspecified; I45.19 Other right bundle-branch block; J45.909 Unspecified asthma, uncomplicated; K21.9 Gastro-esophageal reflux disease without esophagitis; F43.10 Post-traumatic stress disorder, unspecified; F41.9 Anxiety disorder, unspecified; Z88.0 Allergy status to penicillin; Z91.040 Latex allergy status; Z91.02 Food additives allergy status; Z82.49 Family history of ischemic heart disease and other diseases of the circulatory system; Z79.899 Other long term (current) drug therapy

== ENCOUNTER → 2021-04-20 | Outpatient (CLI) | payer OTHER ==
[~2021-04-20] MED LIST changes: +BUPR1TAB52; +CETI10CH; +E-Z-GAS II EFFERVESCENT PACKET (SODIUM BICARB./CITRIC ACID/SIMETHICONE) As Ordered ONE; +E-Z-HD 98% w/w 340GM SUSP BTL As Ordered ONE; +E-Z-PAQUE 96% w/w SUSP 176GM BTL As Ordered ONE
== END ==
LOC: M RAD 08:14
PROVIDERS: ATTEND Physician Assistant Medical
DX: R13.10 Dysphagia, unspecified (principal)

== ENCOUNTER 2021-04-25 16:36 | Emergency (ER) | payer OTHER ==
[~2021-04-25] VITALS: Ht 154.9 cm; Wt 68.2 kg
[2021-04-25 16:36] VITALS: BP 137/73
[~2021-04-25 16:36] MED LIST changes: -E-Z-GAS II EFFERVESCENT PACKET (SODIUM BICARB./CITRIC ACID/SIMETHICONE) As Ordered ONE; -E-Z-HD 98% w/w 340GM SUSP BTL As Ordered ONE; -E-Z-PAQUE 96% w/w SUSP 176GM BTL As Ordered ONE
[2021-04-25 22:26] LABS: GC DNA AMPLIFICATION NEGATIVE (NEGATIVE)
== END 2021-04-25 21:01 | disposition left against medical advice (07) ==
LOC: M ED 16:36
DX: Z53.21 Procedure and treatment not carried out due to patient leaving prior to being seen by health care provider (principal)

== ENCOUNTER → 2021-04-28 | Outpatient (CLI) | payer OTHER ==
[2021-04-28 16:41] LABS: CORTISOL AM 9.2 UG/DL (4.3-22.4); FOLLICLE STIMULATING HORMONE 7.5 mIU/mL; FREE T4 0.97 NG/DL (0.76-1.46); LUTEINIZING HORMONE 7.7 mIU/mL; THYROID STIMULATING HORMONE 1.48 uIU/ML (0.358-3.740)
== END ==
LOC: M PLALAB 09:01
PROVIDERS: ATTEND Nurse Practitioner Family
DX: O92.6 Galactorrhea (principal); Z3A.00 Weeks of gestation of pregnancy not specified; O26.899 Other specified pregnancy related conditions, unspecified trimester; N91.2 Amenorrhea, unspecified

== ENCOUNTER → 2021-05-11 | Outpatient (CLI) | payer OTHER | LOC: M LABSMTC 11:17 | PROVIDERS: ATTEND Anesthesiology | DX: Z01.818 Encounter for other preprocedural examination (principal); Z11.52 Encounter for screening for COVID-19 ==

== ENCOUNTER 2021-05-16 08:59 | Day surgery (SDC) | payer OTHER ==
[~2021-05-16] VITALS: Ht 154.9 cm; Wt 68.5 kg
[~2021-05-16 08:59] MED LIST changes: +NS 1,000 ML IV ONE
[2021-05-16] MEDS ORDERED: propofoL 200 MG/20 ML VIAL As Ordered ONE (09:05)
[2021-05-16] MEDS ORDERED: LIDOCAINE 2% 100MG/5ML SDV (FOR ANES.) As Ordered ONE (09:05)
[2021-05-16] MEDS ORDERED: fentaNYL 100 MCG/2 ML INJECTION As Ordered ONE (09:06)
[2021-05-16] MEDS ORDERED: MIDAZOLAM INJ 2MG/2ML VIAL (J2250 PER 1MG) As Ordered ONE (10:28)
[2021-05-16 11:11] VITALS: BP 102/59
== END 2021-05-16 11:37 | disposition home or self-care (01) ==
LOC: M OPP 08:59
PROVIDERS: ATTEND Internal Medicine Gastroenterology
DX: K22.2 Esophageal obstruction (principal); K22.89 Other specified disease of esophagus; K29.70 Gastritis, unspecified, without bleeding; R13.10 Dysphagia, unspecified; Z79.899 Other long term (current) drug therapy; Z88.0 Allergy status to penicillin; Z91.018 Allergy to other foods; Z91.040 Latex allergy status
CPT/HCPCS: 43239; 43249; 88305; J2250; J3010